=== PATIENT | female | born 1965 | race Caucasian/White ===

== ENCOUNTER 2016-05-12 13:43 | Emergency (ER) | payer OTHER ==
[2016-05-12] MEDS ORDERED: LORazepam INJ* 2 MG/ML 1 ML VIAL IV PUSH ONE (14:43)
[2016-05-12] MEDS ORDERED: Morphine INJ* 4 MG/ML 1 ML CARPUJECT IV ONE (14:43)
[2016-05-12] MEDS ORDERED: NS 0.9% 1000 ML* 3,000 ML IV ONE (14:44)
[2016-05-12 15:00] LABS: Hematocrit 39 % (35-47); Hemoglobin 12.8 g/dl (12.0-16.0); Mean Corpuscular HGB Conc 33 g/dl (31-36); Mean Corpuscular Hemoglobin 28 pg (27-31); Mean Corpuscular Volume 86 fL (80-97); Mean Platelet Volume 9 um3 (7.4-10.4); Red Blood Count 4.55 10^6/ul (4.0-5.4); Red Cell Distribution Width 17 % (10.5-15); White Blood Count 7.3 10^3/ul (3.5-10.8)
[2016-05-12 15:12] LABS: BUN/Creatinine Ratio 11.6 (8-20); C Reactive Protein 3.75 mg/L (< 5.00); Calcium 9.4 mg/dL (8.6-10.3); EGFR African American 115.8 (>60); EGFR Non-African American 90.1 (>60); Globulin 3.1 g/dL (2-4); Potassium 4.1 mmol/L (3.5-5.0); Total Bilirubin 0.3 mg/dL (0.2-1.0); Total Protein 7.1 g/dL (6.4-8.9)
--- NOTE | 2016-05-12 17:32 | RAD ---
INDICATION: LEFT lower extremity pain. LEFT iliac vein stent placed April 13, 2016. COMPARISON: March 14, 2016 TECHNIQUE: Prescott scale, color Doppler, and spectral analysis of the deep veins of the LEFT lower extremity. Vessel compression, phasicity, and augmentation assessed. REPORT: The LEFT common femoral, great saphenous, profunda femoral, and femoral veins are patent. The LEFT popliteal vein is incompletely compressible and demonstrates some flow on color Doppler. The appearance is consistent with partial nonocclusive thrombosis. There is occlusive thrombosis of the bilateral posterior tibial and peroneal veins. Patency of the LEFT external iliac vein documented. IMPRESSION: 1. Nonocclusive thrombosis of the LEFT popliteal vein. 2. Occlusive thrombosis of the bilateral posterior tibial and peroneal veins with worsening compared with the April 21, 2016 exam. 3. Gross resolution of previous nonocclusive thrombosis at the LEFT femoral vein.
--- NOTE | 2016-05-12 17:37 | RAD ---
Indication: LEFT leg cramping with walking. 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 Venous congestion syndrome. Comparison: LEFT lower extremity venous ultrasound of the same date. February 29, 2016 pelvic MRI. Technique: Transabdominal pelvic ultrasound. Report: Unremarkable anteverted 9.2 x 3.2 x 4.6 cm uterus. 5 mm endometrium. 2.0 x 1.8 x 1.2 cm RIGHT ovary with documented vascular flow is unremarkable. 1.8 x 0.8 x 1.5 cm LEFT ovary with documented vascular flow is unremarkable. No free pelvic fluid evident. No visualized prominent parametrial veins evident. Normal venous flow documented in the LEFT external iliac vein on LEFT lower extremity venous ultrasound of the same date. IMPRESSION: Negative pelvic ultrasound.
[2016-05-12] MEDS ORDERED: oxyCODONE/Acetamin 5/325 MG* TAB PO ONE (19:19)
[2016-05-12 19:41] VITALS: BP 129/82
--- NOTE | 2016-05-12 20:49 | ED ---
Marcus Sanchez Erika, scribed for Garret Terry MD on 05/12/16 at 1449 . Abdominal Pain/Female - HPI Summary HPI Summary: Patient is a 50-year-old female presenting to the ED with a CC of constant bilateral lower abdominal pain starting 05/10/2016. She reports that pain has gradually worsened since that time, and became severe this morning. 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 Pain was not alleviated by Tylenol. Pain does not radiate to her back. She also reports vaginal bleeding as spotting starting 05/10, and states she is menopausal. She also reports nausea and diarrhea. She denies SOB, chest pain, and vomiting. Pt also states upper leg pain which she relates to her recent DVT. Pt takes Lovenox, plavix, and aspirin. She denies Hx hysterectomy. - History of Current Complaint Chief Complaint: EDAbdPain Stated Complaint: ABD PAIN Time Seen by Provider: 05/12/16 14:26 Hx Obtained From: Patient ?: No Onset/Duration: Gradual Onset, Lasting Days, Worse Since - this morning Timing: Constant Severity Initially: Mild Severity Currently: Moderate Pain Intensity: 10 Pain Scale Used: 0-10 Numeric Location: Discrete At: RLQ, Discrete At: LLQ Radiates: No Character: Cramping - "like constant contraction" Aggravating Factor(s): Movement Alleviating Factor(s): Nothing Associated Signs and Symptoms: Positive: Vaginal Bleeding, Nausea, Diarrhea. Negative: Chest Pain, Vomiting Allergies/Adverse Reactions: Allergies Allergy/AdvReac Type Severity Reaction Status Date / Time Cyclobenzaprine Allergy Severe Difficulty Verified 04/03/16 09:53 [From Flexeril] Swallowing NSAIDs Allergy Intermediate Itching Verified 04/03/16 09:53 Ketorolac Tromethamine Allergy Mild Difficulty Verified 04/03/16 09:53 [From Toradol] Swallowing Penicillins [PCN] Allergy Mild Rash Verified 04/03/16 09:53 Clonazepam [From Klonopin] Allergy Rash Verified 04/03/16 09:53 Topiramate [From Topamax] Allergy Headache Verified 04/03/16 09:53 Erythromycin AdvReac See Comment Verified 04/03/16 09:53 [place] Allergy Severe Swelling Uncoded 04/03/16 09:53 Of Face,Lips,& Throat tums Allergy Intermediate Dizziness Uncoded 04/03/16 09:53 lidoderm Allergy Mild Rash Uncoded 04/03/16 09:53 PMH/Surg Hx/FS Hx/Imm Hx Endocrine/Hematology History: Reports: Hx Anticoagulant Therapy Denies: Hx Blood Disorders, Hx Blood Transfusions, Hx Bone Marrow Disease, Hx Diabetes, Hx Systemic Lupus Erythematosus, Hx Sickle Cell Disease, Hx Thyroid Disease, Hx Anemia, Hx Unexplained Bleeding Cardiovascular History: Reports: Hx Deep Vein Thrombosis - 1993 left calf Denies: Hx Aneurysm, Hx Angina, Hx Angioplasty, Hx Auto Implanted Cardiovert Defib, Hx Cardiac Arrest, Hx Cardiomegaly, Hx Congenital Heart Disease, Hx Congestive Heart Failure, Hx Coronary Artery Disease, Hx Embolism, Hx Hypercholesterolemia, Hx Hypotension, Hx Hypertension, Hx Pacemaker/ICD, Hx Peripheral Vascular Disease, Hx Rheumatic Fever, Hx Syncope, Hx Valvular Heart Disease, Other Cardiovascular Problems/Disorders Respiratory History: Denies: Hx Asthma, Hx Chronic Bronchitis, Hx Chronic Obstructive Pulmonary Disease (COPD), Hx Cystic Fibrosis, Hx Lung Cancer, Hx Pleural Effusion, Hx Pneumonia, Hx Pulmonary Edema, Hx Pulmonary Embolism, Hx Seasonal Allergies, Hx Sleep Apnea, Other Respiratory Problems/Disorders GI History: Reports: Hx Gall Bladder Disease - taken out 2012, Hx Gastrointestinal Bleed - lesions 2015 Denies: Hx Cirrhosis, Hx Crohn's Disease, Hx Diverticulosis, Hx Gastroesophageal Reflux Disease, Hx Hiatal Hernia, Hx Irritable Bowel, Hx Jaundice, Hx Obstructive Bowel, Hx Ileostomy, Hx Pyloric Stenosis, Hx Ulcer, Other GI Disorders History: Denies: Hx Acute Renal Failure, Hx Benign Prostatic Hyperplasia, Hx Chronic Renal Failure, Hx Dialysis, Hx Kidney Infection, Hx Kidney Stones, Hx Renal Disease, Other Problems/Disorders Musculoskeletal History: Reports: Hx Arthritis, Hx Back Problems - chronic back pain, T4-T5 fusion, Hx Fibromyalgia Denies: Hx Bursitis, Hx Congenital Bone Abnormalities, Hx Gout, Hx Orthopedic Injury, Hx Osteoporosis, Hx Scoliosis, Hx Tendonitis Sensory History: Reports: Hx Contacts or Glasses Denies: Hx Cataracts, Hx Eye Injury, Hx Eye Prosthesis, Hx Glaucoma, Hx Legally Blind, Hx Macular Degeneration, Hx Vision Problem, Hx Deafness, Hx Hearing Aid, Hx Hearing Problem, Other Sensory Impairments Opthamlomology History: Reports: Hx Contacts or Glasses Denies: Hx Cataracts, Hx Eye Injury, Hx Eye Prosthesis, Hx Glaucoma, Hx Legally Blind, Hx Macular Degeneration, Hx Vision Problem, Other Sensory Impairments Neurological History: Reports: Hx Dementia, Hx Headaches, Hx Migraine, Hx Seizures, Other Neuro Impairments/Disorders - prev back surg, bells palsy chronic back pain - L4-5 spinal fusion 2009 Denies: Hx Developmental Delay, Hx Nerve Disease, Hx Spinal Cord Injury, Hx Transient Ischemic Attacks (TIA) Psychiatric History: Reports: Hx Anxiety, Hx Depression Denies: Hx Attention Deficit Hyperactivity Disorder, Hx Eating Disorder, Hx Panic Disorder, Hx Post Traumatic Stress Disorder, Hx Inpatient Treatment, Hx Community Mental Health Tx, Hx Schizophrenia, Hx Bipolar Disorder, Hx Suicide Attempt, Hx of Violent Episodes Against Others, Hx Substance Abuse - Surgical History Surgery Procedure, Year, and Place: D&C-1987 [facility] [place] 1997 [facility] [place]. lumbar FUSION - 2009 [place]. TUBAL LIGATION. Gall bladder 2012 Hx Anesthesia Reactions: No - Immunization History Date of Tetanus Vaccine: 2012 Date of Influenza Vaccine: None Infectious Disease History: No Infectious Disease History: Denies: Hx Clostridium Difficile, Hx Hepatitis, Hx Human Immunodeficiency Virus (HIV), Hx of Known/Suspected MRSA, Hx Shingles, Hx Tuberculosis, Hx Known/ Suspected VRE, Hx Known/Suspected VRSA, History Other Infectious Disease, Traveled Outside the [place] in Last 30 Days - Family History Known Family History: Positive: Cardiac Disease, Hypertension, Diabetes, Seizure Disorder - paternal, maternal, Other Family History: Mother alive in 60s with Hx of gallbladder CA, DVT. Father alive in 60s with Hx of CAD - Social History Alcohol Use: None Hx Substance Use: No Substance Use Type: Reports: None Hx Tobacco Use: Yes Smoking Status (MU): Light Every Day Tobacco Smoker Type: Cigarettes Amount Used/How Often: 4 Cigarettes/DAY Review of Systems Negative: Chest Pain Negative: Shortness Of Breath Positive: Abdominal Pain, Diarrhea, Nausea. Negative: Vomiting Genitourinary: Other - vaginal bleeding - spotting Musculoskeletal: Other - upper leg pain All Other Systems Reviewed And Are Negative: Yes Physical Exam - Summary Physical Exam Summary: The patient is well-nourished in acute distress and acute pain. The skin is warm and diaphoretic and skin color reflects adequate perfusion. HEENT: The head is normocephalic and atraumatic. The pupils are equal and reactive. The conjunctivae are clear and without drainage. Nares are patent and without drainage. Mouth reveals moist mucous membranes and the throat is without erythema and exudate. The external ears are intact. Neck is supple with full range of motion and non-tender. There are no carotid bruits. There is no neck vein distension. Respiratory: Chest is non-tender. Lungs are clear to auscultation and breath sounds are symmetrical and equal. Cardiovascular: Heart is regular rate and rhythm. There is no murmur or rub auscultated. There is no peripheral edema and pulses are symmetrical and equal. Abdomen: The abdomen is soft is tender in her bilateral lower abdomen. There are normal bowel sounds heard in all four quadrants and there is no organomegaly palpated. Musculoskeletal: There is no back pain noted. Extremities are non-tender with full range of motion. There is good capillary refill. There is no peripheral edema or calf tenderness elicited. Neurological: Patient is alert and oriented to person, place and time. The patient has symmetrical motor strength in all four extremities. Cranial nerves are grossly intact. Deep tendon reflexes are symmetrical and equal in all four extremities. Psychiatric: The patient exhibits anxiety. Triage Information Reviewed: Yes Vital Signs On Initial Exam: Initial Vitals Temp Pulse Resp BP Pulse Ox 98.9 F 120 20 137/98 98 05/12/16 13:44 05/12/16 13:44 05/12/16 13:44 05/12/16 13:44 05/12/16 13:44 Vital Signs Reviewed: Yes Diagnostics - Vital Signs Vital Signs Temp Pulse Resp BP Pulse Ox 05/12/16 13:44 98.9 F 120 20 137/98 98 - Laboratory Lab Results: Lab Results 05/12/16 05/12/16 05/12/16 Range/Units 14:00 14:00 14:00 WBC 7.3 (3.5-10.8) 10^3/ul RBC 4.55 (4.0-5.4) 10^6/ul Hgb 12.8 (12.0-16.0) g/dl Hct 39 (35-47) % MCV 86 (80-97) fL MCH 28 (27-31) pg MCHC 33 (31-36) g/dl RDW 17 H (10.5-15) % Plt Count 328 (150-450) 10^3/ul MPV 9 (7.4-10.4) um3 Neut % (Auto) 70.4 (38-83) % Lymph % (Auto) 21.3 L (25-47) % Sharkey % (Auto) 6.4 (1-9) % Eos % (Auto) 1.3 (0-6) % Baso % (Auto) 0.6 (0-2) % Absolute Neuts (auto) 5.1 (1.5-7.7) 10^3/ul Absolute Lymphs (auto) 1.6 (1.0-4.8) 10^3/ul Absolute Monos (auto) 0.5 (0-0.8) 10^3/ul Absolute Eos (auto) 0.1 (0-0.6) 10^3/ul Absolute Basos (auto) 0 (0-0.2) 10^3/ul Absolute Nucleated RBC 0 10^3/ul Nucleated RBC % 0.1 INR (Anticoag Therapy) (0.89-1.11) Sodium 135 (133-145) mmol/L Potassium 4.1 (3.5-5.0) mmol/L Chloride 104 (101-111) mmol/L Carbon Dioxide 22 (22-32) mmol/L Anion Gap 9 (2-11) mmol/L BUN 8 (6-24) mg/dL Creatinine 0.69 (0.51-0.95) mg/dL Est GFR ( Amer) 115.8 (>60) Est GFR (Non-Af Amer) 90.1 (>60) BUN/Creatinine Ratio 11.6 (8-20) Glucose 83 (70-100) mg/dL Lactic Acid 1.4 (0.5-2.0) mmol/L Calcium 9.4 (8.6-10.3) mg/dL Total Bilirubin 0.30 (0.2-1.0) mg/dL AST 16 (13-39) U/L ALT 14 (7-52) U/L Alkaline Phosphatase 87 (34-104) U/L C-Reactive Protein 3.75 (< 5.00) mg/L Total Protein 7.1 (6.4-8.9) g/dL Albumin 4.0 (3.2-5.2) g/dL Globulin 3.1 (2-4) g/dL Albumin/Globulin Ratio 1.3 (1-3) Lipase 52 (11.0-82.0) U/L 05/12/16 Range/Units 14:00 WBC (3.5-10.8) 10^3/ul RBC (4.0-5.4) 10^6/ul Hgb (12.0-16.0) g/dl Hct (35-47) % MCV (80-97) fL MCH (27-31) pg MCHC (31-36) g/dl RDW (10.5-15) % Plt Count (150-450) 10^3/ul MPV (7.4-10.4) um3 Neut % (Auto) (38-83) % Lymph % (Auto) (25-47) % Sharkey % (Auto) (1-9) % Eos % (Auto) (0-6) % Baso % (Auto) (0-2) % Absolute Neuts (auto) (1.5-7.7) 10^3/ul Absolute Lymphs (auto) (1.0-4.8) 10^3/ul Absolute Monos (auto) (0-0.8) 10^3/ul Absolute Eos (auto) (0-0.6) 10^3/ul Absolute Basos (auto) (0-0.2) 10^3/ul Absolute Nucleated RBC 10^3/ul Nucleated RBC % INR (Anticoag Therapy) 1.10 (0.89-1.11) Sodium (133-145) mmol/L Potassium (3.5-5.0) mmol/L Chloride (101-111) mmol/L Carbon Dioxide (22-32) mmol/L Anion Gap (2-11) mmol/L BUN (6-24) mg/dL Creatinine (0.51-0.95) mg/dL Est GFR ( Amer) (>60) Est GFR (Non-Af Amer) (>60) BUN/Creatinine Ratio (8-20) Glucose (70-100) mg/dL Lactic Acid (0.5-2.0) mmol/L Calcium (8.6-10.3) mg/dL Total Bilirubin (0.2-1.0) mg/dL AST (13-39) U/L ALT (7-52) U/L Alkaline Phosphatase (34-104) U/L C-Reactive Protein (< 5.00) mg/L Total Protein (6.4-8.9) g/dL Albumin (3.2-5.2) g/dL Globulin (2-4) g/dL Albumin/Globulin Ratio (1-3) Lipase (11.0-82.0) U/L Result Diagrams: 05/12/16 14:00 05/12/16 14:00 Lab Statement: Any lab studies that have been ordered have been reviewed, and results considered in the medical decision making process. - Ultrasound No standard instances Ultrasound Interpretation Completed By: Radiologist - Venous Doppler Left - IMPRESSION: 1. Nonocclusive thrombosis of the LEFT popliteal vein. 2. Occlusive thrombosis of the bilateral posterior tibial and peroneal veins with worsening compared with the April 21, 2016 exam. 3. Gross resolution of previous nonocclusive thrombosis at the LEFT femoral vein. - Additional Comments Diagnostic Additional Comments: Pelvic US Read by Radiologist - IMPRESSION: Negative pelvic ultrasound. Re-Evaluation - Re-Evaluation First Eval Re-Evaluation Time: 19:13 Change: Improved Comment: Discussed lab and imaging results. Pain is now rated an 8/10 and pt appears more comfortable than before. She reports she has no pain medication at home Abdominal Pain Fem Course/Dx - Course Course Of Treatment: Patient presents with a longstanding history of chronic pain, she was recently diagnosed with DVT of the lower extremity and also of the iliac veins. She is on anti-coagulants and had a stent placed in her iliac vein. Today, she presents with right-sided abdominal pain and some vaginal bleeding. US Pelvis was performed which revealed no abnormalities. She had a DVT still present in the LLE. She was given pain medication. I-STOP was reviewed which revealed recent dose of tramadol and oxycodone. She was re- assessed, the pain was decreased. She states she ran out of pain medication. - Diagnoses Differential Diagnosis: Positive: Constipation, Ovarian Cyst, Urinary Tract Infection, Other - pelvic pain, pelvic congestion, chronic pain, dvt Provider Diagnoses: Pelvic pain, Dysfunctional uterine bleeding, Deep vein thrombosis (DVT) of left lower extremity Discharge - Discharge Plan Condition: Stable Disposition: HOME Prescriptions: traMADol TAB* [Ultram*] 50 mg PO Q6HR PRN #20 tab MDD 4 PRN Reason: pain Patient Education Materials: Pelvic Pain in Women (ED), Dysfunctional Uterine Bleeding (ED) Referrals: Shanda Anglin MD [Primary Care Provider] - Shahzad Guillen MD [Medical Doctor] - Jolanta Alejo MD [Medical Doctor] - The documentation as recorded by the Marcus blanco Erika accurately reflects the service I personally performed and the decisions made by me, Garret Terry MD.
== END 2016-05-12 19:41 | disposition home or self-care (01) ==
LOC: ED 13:43
DX: R10.2 Pelvic and perineal pain (principal); N93.8 Other specified abnormal uterine and vaginal bleeding; I82.4Z2 Acute embolism and thrombosis of unspecified deep veins of left distal lower extremity; G89.29 Other chronic pain; Z79.82 Long term (current) use of aspirin; Z79.02 Long term (current) use of antithrombotics/antiplatelets; F17.210 Nicotine dependence, cigarettes, uncomplicated; Z88.0 Allergy status to penicillin
CPT/HCPCS: 36415; 76856; 80053; 83605; 83690; 85025; 85610; 86140; 96360; 96374; 96375; 99282; A9270-GY; J2060; J2270

== ENCOUNTER 2016-05-14 13:24 | Inpatient (IN) | payer OTHER ==
[2016-05-14 14:00] LABS: Hematocrit 44 % (35-47); Hemoglobin 14.3 g/dl (12.0-16.0); Mean Corpuscular HGB Conc 33 g/dl (31-36); Mean Corpuscular Hemoglobin 28 pg (27-31); Mean Corpuscular Volume 86 fL (80-97); Mean Platelet Volume 8 um3 (7.4-10.4); Red Blood Count 5.08 10^6/ul (4.0-5.4); Red Cell Distribution Width 17 % (10.5-15); White Blood Count 4.5 10^3/ul (3.5-10.8)
[2016-05-14] MEDS ORDERED: NS 0.9% 1000 ML* 1,000 ML IV ONE (14:15)
[2016-05-14 14:16] LABS: Albumin 4.5 g/dL (3.2-5.2); BUN/Creatinine Ratio 7.8 (8-20); Calcium 9.8 mg/dL (8.6-10.3); EGFR African American 126.3 (>60); EGFR Non-African American 98.2 (>60); Globulin 3.6 g/dL (2-4); Potassium 3.8 mmol/L (3.5-5.0); Total Bilirubin 0.3 mg/dL (0.2-1.0); Total Protein 8.1 g/dL (6.4-8.9)
--- NOTE | 2016-05-14 14:28 | RAD ---
Indication: Confusion. CT of the brain was performed without IV contrast. Comparison is made with previous exam dated 11/12/2015. Ventricular structures are midline. No midline shift is noted. The extra-axial spaces are unremarkable. There is no evidence of intracranial mass or hemorrhage. No other high or low density lesions are identified. The bony calvaria including mastoid air cells and paranasal sinuses are otherwise unremarkable. IMPRESSION: No intracranial mass or hemorrhage is noted.
[2016-05-14] MEDS ORDERED: Iohexol 350* (CONTRAST) 500 ML MDV IV ONE (14:31)
[2016-05-14] MEDS ORDERED: Ondansetron INJ* 2 MG/ML VIAL IV ONE (14:39)
[2016-05-14] MEDS ORDERED: Morphine INJ* 4 MG/ML 1 ML CARPUJECT IV ONE ×2 (14:39→16:20)
--- NOTE | 2016-05-14 16:37 | RAD ---
Indication: Syncope, elevated troponin, evaluate for aorta and pulmonary embolus. CTA of the chest, abdomen and pelvis was performed after oral and IV contrast administration. 100 cc of Omnipaque 350 was given hospital protocol. Coronal and sagittal reconstructed images were obtained. The origins of the great vessels are unremarkable. There is no evidence of aortic dissection. Ascending aorta measures approximately 3.4 cm. The pulmonary arterial tree is well opacified. There are no filling defects present to suggest pulmonary embolus. There is no evidence of mediastinal or hilar adenopathy noted. The heart demonstrates no pericardial effusion. There is an axial-type hiatal hernia of moderate size noted. The lung cobb demonstrate no evidence of alveolar consolidation. No pleural fluid is identified. No focal nodules are noted. CTA of the abdomen and pelvis demonstrates the abdominal aorta to be normal caliber without evidence of aneurysmal dilatation. Origins of the celiac axis, superior mesenteric artery, left and right renal arteries are unremarkable. Calcification is noted in the distal abdominal aorta just proximal to the origin of the inferior mesenteric artery. There is a left common iliac vein stent noted. The liver is normal in size. No focal lesions are noted. Prominent common duct is noted which appears to taper into the duodenum. The common duct measures up to 9.8 mm. This is likely due to postcholecystectomy state of the patient. Spleen is heterogeneous. No adrenal lesions are noted. The kidneys demonstrate symmetric nephrograms. No retroperitoneal adenopathy is noted. No dilated loops of bowel are noted. The colon is filled with stool. Urinary bladder is unremarkable. No hernias are noted. The ovaries are unremarkable. There is soft tissue mass in the subcutaneous fat superficial to the left rectus muscle measuring up to 3.1 cm. This is of uncertain etiology. There is some skin thickening in this level and clinical correlation is suggested. There is some induration of the fat at this level. No hernias are noted. There are postoperative changes of the lower lumbar spine noted. IMPRESSION: NO PULMONARY EMBOLUS IS NOTED. NO ANEURYSMAL DILATATION OF THE ASCENDING AORTA, DESCENDING THORACIC AORTA AND ABDOMINAL AORTA. THERE IS A LEFT COMMON ILIAC STENT NOTED. THERE IS A HIATAL HERNIA NOTED. IN THE SUBCUTANEOUS FAT. AGAIN NOTED IN THE SUBCUTANEOUS FAT IN THE LEFT LOWER ABDOMEN JUST TO THE LEFT OF THE UMBILICUS IS A 3.1 CM SOFT TISSUE MASS WITH SKIN INDURATION. THIS IS OF UNCERTAIN ETIOLOGY AND CLINICAL CORRELATION IS SUGGESTED TO EXCLUDE INFECTION.
--- NOTE | 2016-05-14 16:38 | ED ---
Jennifer Sanchez Matthew, scribed for Chris Rosado MD on 05/14/16 at 1440 . Abdominal Pain/Female - HPI Summary HPI Summary: A 50 y/o female presents to the ED with intermittent diffuse lower abdominal since 2 days ago. The pain is rated 9/10 in severity, described as sharp and stabbing, and radiates down the legs. She states that she has been passing out as a result of her pain. Associated symptoms include vaginal bleeding - since 4 days ago, lightheadedness, loose stools, coughing, and back pain. The patient denies vomiting, nausea, chest pain, SOB, dizziness, neck pain, arm pain, blood w/ stool, black stools and trauma. She has to change her pads 4x per hours, because of the vaginal bleeding. Denies allergies to IV dyes. The patient was unresponsive upon arrival. She is currently on Plavix. No Hx of CAD or CA. The patient does smoke. - History of Current Complaint Chief Complaint: EDSyncope Stated Complaint: SYNCOPE Time Seen by Provider: 05/14/16 13:34 Hx Obtained From: Patient ?: No Onset/Duration: Gradual Onset, Lasting Days, Still Present Timing: Constant Severity Initially: Moderate Severity Currently: Moderate Pain Intensity: 9 Pain Scale Used: 0-10 Numeric Location: Diffuse - lower abdominal pain Radiates: Yes Radiates to: Other - legs Character: Sharp Associated Signs and Symptoms: Positive: Back Pain, Vaginal Bleeding, Other: - lightheadedness; loose stools. Negative: Chest Pain, Dizzy, Blood in Stool Allergies/Adverse Reactions: Allergies Allergy/AdvReac Type Severity Reaction Status Date / Time Cyclobenzaprine Allergy Severe Difficulty Verified 04/03/16 09:53 [From Flexeril] Swallowing NSAIDs Allergy Intermediate Itching Verified 04/03/16 09:53 Ketorolac Tromethamine Allergy Mild Difficulty Verified 04/03/16 09:53 [From Toradol] Swallowing Penicillins [PCN] Allergy Mild Rash Verified 04/03/16 09:53 Clonazepam [From Klonopin] Allergy Rash Verified 04/03/16 09:53 Topiramate [From Topamax] Allergy Headache Verified 04/03/16 09:53 Tramadol Allergy Rash Verified 05/13/16 14:38 Erythromycin AdvReac See Comment Verified 04/03/16 09:53 port gamble Allergy Severe Swelling Uncoded 04/03/16 09:53 Of Face,Lips,& Throat tums Allergy Intermediate Dizziness Uncoded 04/03/16 09:53 lidoderm Allergy Mild Rash Uncoded 04/03/16 09:53 Home Medications: Home Medications Aspirin Low Dose CHEW TAB* [Aspirin Low Dose TAB*] 81 mg PO DAILY 05/14/16 [ History Confirmed 05/14/16] QUEtiapine TAB* [SEROquel TAB*] 50 mg PO DAILY 05/14/16 [History Confirmed 05/14] PMH/Surg Hx/FS Hx/Imm Hx Endocrine/Hematology History: Reports: Hx Anticoagulant Therapy Denies: Hx Blood Disorders, Hx Blood Transfusions, Hx Bone Marrow Disease, Hx Diabetes, Hx Systemic Lupus Erythematosus, Hx Sickle Cell Disease, Hx Thyroid Disease, Hx Anemia, Hx Unexplained Bleeding Cardiovascular History: Reports: Hx Deep Vein Thrombosis - 1993 left calf Denies: Hx Aneurysm, Hx Angina, Hx Angioplasty, Hx Auto Implanted Cardiovert Defib, Hx Cardiac Arrest, Hx Cardiomegaly, Hx Congenital Heart Disease, Hx Congestive Heart Failure, Hx Coronary Artery Disease, Hx Embolism, Hx Hypercholesterolemia, Hx Hypotension, Hx Hypertension, Hx Pacemaker/ICD, Hx Peripheral Vascular Disease, Hx Rheumatic Fever, Hx Syncope, Hx Valvular Heart Disease, Other Cardiovascular Problems/Disorders Respiratory History: Denies: Hx Asthma, Hx Chronic Bronchitis, Hx Chronic Obstructive Pulmonary Disease (COPD), Hx Cystic Fibrosis, Hx Lung Cancer, Hx Pleural Effusion, Hx Pneumonia, Hx Pulmonary Edema, Hx Pulmonary Embolism, Hx Seasonal Allergies, Hx Sleep Apnea, Other Respiratory Problems/Disorders GI History: Reports: Hx Gall Bladder Disease - taken out 2012, Hx Gastrointestinal Bleed - lesions 2015 Denies: Hx Cirrhosis, Hx Crohn's Disease, Hx Diverticulosis, Hx Gastroesophageal Reflux Disease, Hx Hiatal Hernia, Hx Irritable Bowel, Hx Jaundice, Hx Obstructive Bowel, Hx Ileostomy, Hx Pyloric Stenosis, Hx Ulcer, Other GI Disorders History: Denies: Hx Acute Renal Failure, Hx Benign Prostatic Hyperplasia, Hx Chronic Renal Failure, Hx Dialysis, Hx Kidney Infection, Hx Kidney Stones, Hx Renal Disease, Other Problems/Disorders Musculoskeletal History: Reports: Hx Arthritis, Hx Back Problems - chronic back pain, T4-T5 fusion, Hx Fibromyalgia Denies: Hx Bursitis, Hx Congenital Bone Abnormalities, Hx Gout, Hx Orthopedic Injury, Hx Osteoporosis, Hx Scoliosis, Hx Tendonitis Sensory History: Reports: Hx Contacts or Glasses Denies: Hx Cataracts, Hx Eye Injury, Hx Eye Prosthesis, Hx Glaucoma, Hx Legally Blind, Hx Macular Degeneration, Hx Vision Problem, Hx Deafness, Hx Hearing Aid, Hx Hearing Problem, Other Sensory Impairments Opthamlomology History: Reports: Hx Contacts or Glasses Denies: Hx Cataracts, Hx Eye Injury, Hx Eye Prosthesis, Hx Glaucoma, Hx Legally Blind, Hx Macular Degeneration, Hx Vision Problem, Other Sensory Impairments Neurological History: Reports: Hx Dementia, Hx Headaches, Hx Migraine, Hx Seizures, Other Neuro Impairments/Disorders - prev back surg, bells palsy chronic back pain - L4-5 spinal fusion 2009 Denies: Hx Developmental Delay, Hx Nerve Disease, Hx Spinal Cord Injury, Hx Transient Ischemic Attacks (TIA) Psychiatric History: Reports: Hx Anxiety, Hx Depression Denies: Hx Attention Deficit Hyperactivity Disorder, Hx Eating Disorder, Hx Panic Disorder, Hx Post Traumatic Stress Disorder, Hx Inpatient Treatment, Hx Community Mental Health Tx, Hx Schizophrenia, Hx Bipolar Disorder, Hx Suicide Attempt, Hx of Violent Episodes Against Others, Hx Substance Abuse - Surgical History Surgery Procedure, Year, and Place: D&C-1987 [facility] [place]. - 1997 [facility] [place]. lumbar FUSION - 2009 [place]. TUBAL LIGATION. Gall bladder 2012 Hx Anesthesia Reactions: No - Immunization History Date of Tetanus Vaccine: 2012 Date of Influenza Vaccine: None Infectious Disease History: No Infectious Disease History: Denies: Hx Clostridium Difficile, Hx Hepatitis, Hx Human Immunodeficiency Virus (HIV), Hx of Known/Suspected MRSA, Hx Shingles, Hx Tuberculosis, Hx Known/ Suspected VRE, Hx Known/Suspected VRSA, History Other Infectious Disease, Traveled Outside the in Last 30 Days - Family History Known Family History: Positive: Cardiac Disease, Hypertension, Diabetes, Seizure Disorder - paternal, maternal, Other Family History: Mother alive in 60s with Hx of gallbladder CA, DVT. Father alive in 60s with Hx of CAD - Social History Alcohol Use: None Hx Substance Use: No Substance Use Type: Reports: None Hx Tobacco Use: Yes Smoking Status (MU): Light Every Day Tobacco Smoker Type: Cigarettes Amount Used/How Often: 4 Cigarettes/DAY Review of Systems Constitutional: Negative Negative: Fever, Chills Eyes: Negative Negative: Erythema ENT: Negative Negative: Sore Throat, Ear Ache Cardiovascular: Negative Negative: Chest Pain Positive: Cough. Negative: Shortness Of Breath Gastrointestinal: Other - Loose stools Positive: Abdominal Pain - Diffuse lower abdominal pain. Negative: Vomiting, Diarrhea, Nausea Genitourinary: Other - Vaginal bleeding Positive: Myalgia - back pain Skin: Negative Negative: Rash Neurological: Other - lightheadedness Psychological: Normal All Other Systems Reviewed And Are Negative: Yes Physical Exam - Summary Physical Exam Summary: Upon exam, the patient was crying in pain. Pelvic Exam reveals Scant amount of blood from the cervix Triage Information Reviewed: Yes Vital Signs On Initial Exam: Initial Vitals Temp Pulse Resp BP Pulse Ox 96.8 F 116 18 93/77 98 05/14/16 13:31 05/14/16 13:31 05/14/16 13:31 05/14/16 13:31 05/14/16 13:31 Vital Signs Reviewed: Yes Appearance: Positive: Well-Nourished Skin: Positive: Warm, Dry Head/Face: Positive: Other - Normocephalic; Atraumatic Eyes: Positive: Conjunctiva Clear Dental: Negative: Cervical Lymphadenopathy Neck: Positive: No Lymphadenopathy, Other: - Musculoskeletal ROM normal neck; No JVD Respiratory/Lung Sounds: Positive: Breath Sounds Present, Other - Normal Effort ; No respiratory distress. Negative: Rales, Stridor, Tracheal Deviation, Wheezes Cardiovascular: Positive: Tachycardia, Other - Heart sounds normal; Intact distal pulses; The pedal pulses are 2+ and symmetric. Radial pulses are 2+ and symmetric. Negative: Murmur Abdomen Description: Positive: Soft, Other: - Rebound. Negative: Distended, Guarding Musculoskeletal: Negative: Edema Left, Edema Right Neurological: Positive: Alert, Oriented to Person Place, Time Psychiatric: Positive: Affect/Mood Appropriate - [place] Coma Scale Coma Scale Total: 15 Diagnostics - Vital Signs Vital Signs Temp Pulse Resp BP Pulse Ox 05/14/16 13:31 96.8 F 116 18 93/77 98 - Laboratory Lab Results: Lab Results 05/14/16 05/14/16 05/14/16 Range/Units 13:45 13:45 13:45 WBC 4.5 (3.5-10.8) 10^3/ul RBC 5.08 (4.0-5.4) 10^6/ul Hgb 14.3 (12.0-16.0) g/dl Hct 44 (35-47) % MCV 86 (80-97) fL MCH 28 (27-31) pg MCHC 33 (31-36) g/dl RDW 17 H (10.5-15) % Plt Count 338 (150-450) 10^3/ul MPV 8 (7.4-10.4) um3 Neut % (Auto) 74.4 (38-83) % Lymph % (Auto) 17.4 L (25-47) % [place] % (Auto) 5.5 (1-9) % Eos % (Auto) 1.5 (0-6) % Baso % (Auto) 1.2 (0-2) % Absolute Neuts (auto) 3.3 (1.5-7.7) 10^3/ul Absolute Lymphs (auto) 0.8 L (1.0-4.8) 10^3/ul Absolute Monos (auto) 0.2 (0-0.8) 10^3/ul Absolute Eos (auto) 0.1 (0-0.6) 10^3/ul Absolute Basos (auto) 0.1 (0-0.2) 10^3/ul Absolute Nucleated RBC 0 10^3/ul Nucleated RBC % 0 Sodium 136 (133-145) mmol/L Potassium 3.8 (3.5-5.0) mmol/L Chloride 104 (101-111) mmol/L Carbon Dioxide 23 (22-32) mmol/L Anion Gap 9 (2-11) mmol/L BUN 5 L (6-24) mg/dL Creatinine 0.64 (0.51-0.95) mg/dL Est GFR ( Amer) 126.3 (>60) Est GFR (Non-Af Amer) 98.2 (>60) BUN/Creatinine Ratio 7.8 L (8-20) Glucose 88 (70-100) mg/dL Lactic Acid 1.4 (0.5-2.0) mmol/L Calcium 9.8 (8.6-10.3) mg/dL Total Bilirubin 0.30 (0.2-1.0) mg/dL AST 30 (13-39) U/L ALT 17 (7-52) U/L Alkaline Phosphatase 94 (34-104) U/L Troponin I 2.00 H* (<0.04) ng/mL Total Protein 8.1 (6.4-8.9) g/dL Albumin 4.5 (3.2-5.2) g/dL Globulin 3.6 (2-4) g/dL Albumin/Globulin Ratio 1.3 (1-3) Blood Type Antibody Screen 05/14/16 Range/Units 13:45 WBC (3.5-10.8) 10^3/ul RBC (4.0-5.4) 10^6/ul Hgb (12.0-16.0) g/dl Hct (35-47) % MCV (80-97) fL MCH (27-31) pg MCHC (31-36) g/dl RDW (10.5-15) % Plt Count (150-450) 10^3/ul MPV (7.4-10.4) um3 Neut % (Auto) (38-83) % Lymph % (Auto) (25-47) % [place] % (Auto) (1-9) % Eos % (Auto) (0-6) % Baso % (Auto) (0-2) % Absolute Neuts (auto) (1.5-7.7) 10^3/ul Absolute Lymphs (auto) (1.0-4.8) 10^3/ul Absolute Monos (auto) (0-0.8) 10^3/ul Absolute Eos (auto) (0-0.6) 10^3/ul Absolute Basos (auto) (0-0.2) 10^3/ul Absolute Nucleated RBC 10^3/ul Nucleated RBC % Sodium (133-145) mmol/L Potassium (3.5-5.0) mmol/L Chloride (101-111) mmol/L Carbon Dioxide (22-32) mmol/L Anion Gap (2-11) mmol/L BUN (6-24) mg/dL Creatinine (0.51-0.95) mg/dL Est GFR ( Amer) (>60) Est GFR (Non-Af Amer) (>60) BUN/Creatinine Ratio (8-20) Glucose (70-100) mg/dL Lactic Acid (0.5-2.0) mmol/L Calcium (8.6-10.3) mg/dL Total Bilirubin (0.2-1.0) mg/dL AST (13-39) U/L ALT (7-52) U/L Alkaline Phosphatase (34-104) U/L Troponin I (<0.04) ng/mL Total Protein (6.4-8.9) g/dL Albumin (3.2-5.2) g/dL Globulin (2-4) g/dL Albumin/Globulin Ratio (1-3) Blood Type B Positive Antibody Screen Pending Result Diagrams: 05/14/16 13:45 05/14/16 13:45 Lab Statement: Any lab studies that have been ordered have been reviewed, and results considered in the medical decision making process. - CT Brain CT CT Interpretation: No Acute Changes - IMPRESSION: No intracranial mass or hemorrhage is noted. CT Interpretation Completed By: Radiologist - EKG 14:28 Cardiac Rate: Tachycardia - 115 bpm EKG Rhythm: Sinus Tachycardia EKG Interpretation: No STEMI Abdominal Pain Fem Course/Dx - Course Course Of Treatment: Presenting for three days of progressive vaginal bleeding, pelvic exam shows only scant blood. Syncopal episodes today, pressure soft on arrival. Blood counts normal, no acute abdomen/PE/aortic dissection. Abdominal pain is chronic. Troponin related to hypotension/syncope vs NSTEMI. Dr. Gabriel (cardiology) and Dr. Alanis aware - Diagnoses Provider Diagnoses: Chronic bilateral lower abdominal pain, Vaginal bleeding, Syncope, NSTEMI (non- ST elevated myocardial infarction) - Critical Care Time Critical Care Time: 30-74 min Discharge - Discharge Plan Condition: Fair Disposition: ADMITTED TO [facility] The documentation as recorded by the Jennifer blanco Matthew accurately reflects the service I personally performed and the decisions made by me, Chris Rosado MD.
[2016-05-14 18:46] LABS: Urine Bacteria Absent (Absent); Urine Bilirubin Negative (Negative); Urine Glucose Negative (Negative); Urine Nitrite Negative (Negative)
[2016-05-14 19:03] LABS: Benzodiazepine Urine Screen None Detected (None Detect)
[2016-05-14 20:02] LABS: Troponin I 1.96 ng/mL (<0.04)
[2016-05-14] MEDS: Enoxaparin(*) 80 MG/0.8 ML SYR SUBCUT SCH (20:47)
[2016-05-14] MEDS: Gabapentin CAP(*) 400 MG PO SCH (20:48)
[2016-05-14] MEDS: Metoprolol Tartrate TAB* 25 MG PO SCH (20:49)
[2016-05-14] MEDS: hydrOXYzine HCL TAB* 50 MG PO PRN (20:50)
--- NOTE | 2016-05-14 20:55 | HP ---
HISTORY AND PHYSICAL: DATE OF ADMISSION: 05/14/16 PRIMARY CARE PHYSICIAN: Dr. Anglin. HISTORY OF PRESENT ILLNESS: Ms. Agosto is a 50-year-old female with a past medical history of chronic pain; seizure; left lower extremity stent placed for peripheral vascular disease; anxiety; depression; DVT diagnosed in November 2015, on Lovenox shots; who presents to the hospital with significant lower abdominal pain, reported vaginal bleeding, and syncope. The patient states her symptoms began around 05/10/15. She said she woke up in the morning with crampy lower abdominal pain. She also noticed some spotting in her underwear from her vagina that day. States she took some gabapentin and Tylenol with no improvement. The pain was not severe, but persisted over the next few days until 05/12/16 where the pain worsened and she reported more significant vaginal bleeding. She stated the pain was very severe. She came to the emergency room that day, was evaluated by Dr. Terry. She underwent a pelvic ultrasound that was unremarkable. She also underwent a repeat venous Doppler that showed persistent DVT. She was sent home with tramadol as she reported that she ran out of it. She states over the past few days, the pain has become more severe and she states today when she stood up, blood "gushed out from her vagina." She states she has been having to change her pads very frequently up to 4 pads an hour. However, since her arriving to the hospital, she has had no vaginal bleeding. The patient states she had menopause at the age of 47. She has had some loose bowel movements, although no blood. She has had some nausea and vomiting this morning, which was nonbilious and nonbloody. Apparently, en route to the hospital, she passed out in the car and was not totally responsive when she was here in the hospital. Looking back in patient's previous history and physical, she has had episodes of questionable syncope in the past and episodes of unresponsiveness. The patient denies any chest pain, shortness of breath, or dysuria. PAST MEDICAL HISTORY: DVT in November 2015, chronic back pain, anxiety, depression, peripheral vascular disease with left lower extremity iliac stent placed. PAST SURGICAL HISTORY: D and C, , lumbar fusion, tubal ligation, cholecystectomy. HOME MEDICATIONS: 1. Seroquel 50 mg by mouth daily. 2. Gabapentin 400 mg by mouth every 4 hours. 3. Tramadol 50 mg by mouth every 6 hours as needed for pain. 4. Hydroxyzine 100 mg by mouth 3 times daily as needed for anxiety. 5. Effexor 300 mg by mouth daily. 6. Protonix 40 mg by mouth daily. 7. Lovenox 100 mg subcu daily. 8. Plavix 75 mg by mouth daily. ALLERGIES: Reports allergies to PENICILLIN, TORADOL, NSAIDS, FLEXERIL, TOPAMAX , TRAMADOL, ERYTHROMYCIN, [place], TUMS, and LIDODERM. FAMILY HISTORY: Father with CAD, mother with CVA. SOCIAL HISTORY: The patient smoked a half pack per day for 16 years. Denies any alcohol use. Denies any illicit drug use. REVIEW OF SYSTEMS: The patient reports some chills, no dysuria. Remainder of 12- point review of systems negative except for that on the HPI. PHYSICAL EXAMINATION GENERAL: The patient is a middle-aged female, lying in bed, in no apparent distress. VITAL SIGNS: On admission, temperature 96.8, heart rate of 116, respiratory rate of 18, O2 saturation 98% on room air, blood pressure 93/77, repeat blood pressure shortly thereafter 148/98, tachycardia since resolved. HEENT: Dry mucous membranes. Anicteric sclerae. Pupils equal, round, reactive to light and accommodation. No cervical adenopathy. LUNGS: Clear to auscultation bilaterally. No wheezes, rales, or rhonchi. CARDIOVASCULAR: Regular rate and rhythm. S1 and S2 present. No murmurs, gallops, or rubs. ABDOMEN: Soft, nondistended. Tender to palpation in the lower quadrants. No rebound or guarding. Ecchymoses from Lovenox in the anterior stomach. EXTREMITIES: No clubbing, cyanosis, or edema. NEUROLOGIC: The patient is alert and oriented x3. No focal neurological deficits. LABS AND DIAGNOSTICS: White blood cell count of 4.5, hematocrit 44, platelets of 338. Sodium 136, potassium 3.8, chloride of 104, carbon dioxide of 23, BUN of 5, creatinine of 0.64, glucose of 88, lactic acid of 1.4. AST of 30, ALT of 17, troponin of 2.00. U-tox positive for opiates which the patient received prior to her test. Urinalysis negative for evidence of infection. IMAGING: CT of the brain shows no intracranial mass or hemorrhage. CT of the chest, abdomen, and pelvis shows no pulmonary embolism, no aneurysmal dilatation , left common iliac stent, hiatal hernia, soft tissue mass, and left lower quadrant subcutaneous fat. ASSESSMENT AND PLAN: Abdominal pain, possible syncope and troponin elevation in a 50-year-old female with a past medical history of chronic pain; deep venous thrombosis, on Lovenox; anxiety; depression; peripheral vascular disease , status post left lower extremity stent. 1. Abdominal pain. Etiology is unclear. The patient's labs are largely unremarkable. No clear evidence of infection. LFTs are within normal limits. We will add on a lipase. CT scan is unremarkable as well. I think that the area noted on the CAT scan is from her Lovenox injections. She has had a normal pelvic ultrasound 2 days ago. Has not had any vaginal bleeding since her arriving here, but we will continue to keep an eye on this. Her hematocrit is normal. Will continue home pain medications. 2. Troponin elevation. Unclear etiology of this. I am wondering if this may be a lab error as the patient has had no chest pain, has no cardiac history, has no anemia, hypoxia, and a normal EKG. I supposed this could be demand mediated from some hypotension but this seems quite high. I will add on a CK and a CK-MB. We will also repeat a troponin now. If it is positive, we can consult Cardiology and I will consider restarting the patient's Lovenox as she has had no evidence of bleeding since coming to the hospital. 3. History of deep venous thrombosis. We will await troponin. For now with the patient's reported history of heavy vaginal bleeding, we will hold her Lovenox. 4. Anxiety and depression. Continue home Seroquel, gabapentin, venlafaxine, and Atarax. 5. Chronic pain. Continue home tramadol. 6. Left lower extremity stent, continue Plavix for now. 7. DVT prophylaxis, TEDs. 8. Code status, the patient is a full code. TIME SPENT: Total time spent on this admission 60 minutes with over half the time spent [id number] with the patient counseling and coordinating care. CC: Dr. Anglin * [id number]/[facility] #: [id number] BELKYS
[2016-05-14] MEDS: traMADol TAB* 50 MG PO PRN (22:27)
[2016-05-14 22:47] LABS: Troponin I 2.14 ng/mL (<0.04)
[2016-05-15] MEDS: Gabapentin CAP(*) 400 MG PO SCH ×6 (01:38→21:32)
[2016-05-15 04:57] LABS: Hematocrit 35 % (35-47); Hemoglobin 11.6 g/dl (12.0-16.0); Mean Corpuscular HGB Conc 33 g/dl (31-36); Mean Corpuscular Hemoglobin 29 pg (27-31); Mean Corpuscular Volume 86 fL (80-97); Mean Platelet Volume 8 um3 (7.4-10.4); Red Blood Count 4.08 10^6/ul (4.0-5.4); Red Cell Distribution Width 17 % (10.5-15); White Blood Count 4.2 10^3/ul (3.5-10.8)
[2016-05-15 05:09] LABS: BUN/Creatinine Ratio 12.3 (8-20); Calcium 8.7 mg/dL (8.6-10.3); EGFR African American 144.4 (>60); EGFR Non-African American 112.3 (>60); Potassium 3.3 mmol/L (3.5-5.0)
[2016-05-15 05:14] LABS: Troponin I 2.29 ng/mL (<0.04)
[2016-05-15] MEDS: traMADol TAB* 50 MG PO PRN ×3 (05:19→17:47)
[2016-05-15] MEDS: Clopidogrel TAB* 75 MG PO SCH (09:09)
[2016-05-15] MEDS: Enoxaparin(*) 80 MG/0.8 ML SYR SUBCUT SCH ×2 (09:10→21:32)
[2016-05-15] MEDS: Pantoprazole TAB (NF) 40 MG TAB PO SCH (09:10)
[2016-05-15] MEDS: Venlafaxine EXT RELEASE CAP* 75 MG PO SCH (09:11)
[2016-05-15] MEDS: QUEtiapine TAB* 25 MG PO SCH (09:11)
[2016-05-15] MEDS: Metoprolol Tartrate TAB* 25 MG PO SCH ×2 (09:15→17:46)
--- NOTE | 2016-05-15 12:03 | ECHO ---
Patient: BARTOLO SAENZ [facility] Rec#: [id number] : 1965 Date: 05/15/2016 Age: 50y Height: 162 cm / 63.8 in Weight: 81 kg / 178.5 lbs Sex: F BSA: 1.86 Room#: 452 Admit Date#: 05/14/2016 Type: Inpatient Referring: MECCA WYNN MD Reading: Jose Roberto Flynn DO Cableman: Juan Ramon Boyer RDCS CC: Shanda Anglin MD Transthoracic Echocardiogram Indication: Elevated, Troponin BP: 107/70 HR: 79 Rhythm: NSR Findings History: PVD,SMOKER Technical Comments: The study quality is good. Completed 1015 Left Ventricle: The left ventricular chamber size is normal. There is a prominent septal knuckle. Global left ventricular wall motion and contractility are within normal limits. There is normal left ventricular systolic function. The estimated ejection fraction is 55-60%. There is no consistent Doppler evidence of clinically significant diastolic dysfunction. Left Atrium: The left atrial chamber size is normal. Right Ventricle: The right ventricular chamber size and systolic function are within normal limits. Right Atrium: The right atrial cavity size is normal. Aortic Valve: The aortic valve is trileaflet. The aortic valve leaflets are mildly thickened. There is no evidence of aortic regurgitation. There is no evidence of aortic stenosis. Mitral Valve: The mitral valve leaflets appear normal. There is no evidence of mitral regurgitation. There is no evidence of mitral stenosis. Tricuspid Valve: The tricuspid valve appears normal in structure and function. There is trace tricuspid regurgitation. Unable to estimate the right ventricular systolic pressure. Pulmonic Valve: The pulmonic valve appears normal. There is no evidence of pulmonic regurgitation. There is no pulmonic stenosis. Pericardium: There is no significant pericardial effusion. Aorta: The ascending aorta is not well visualized. There is no dilatation of the aortic arch. There is no dilation of the aortic root. Pulmonary Artery: The main pulmonary artery is not well visualized. Venous: The inferior vena cava appears normal in size. There is a greater than 50% respiratory change in the inferior vena cava dimension. Conclusions The left ventricular chamber size is normal. There is a prominent septal knuckle. There is normal left ventricular systolic function with an estimated LV ejection fraction of 55-60%. Global left ventricular wall motion and contractility are within normal limits. The left atrial chamber size is normal. The right ventricular chamber size and systolic function are within normal limits. The aortic valve leaflets are mildly thickened. Unable to estimate the right ventricular systolic pressure. There is no significant pericardial effusion. Compared to prior study form 05/2007, no significant changes noted Measurements Name Value Normal Range RVIDd (AP) 2D 1.8 cm (0.9 - 2.6) RVDdMajor (2D) 2.3 cm (2.2 - 4.4) RAd ISD 4CH 3.8 cm (3.4 - 4.9) IVSd (2D) 0.9 cm (0.6 - 1) LVPWd (2D) 1.1 cm (0.6 - 1) LVIDd (2D) 5.5 cm (3.6 - 5.4) LVIDs (2D) 4 cm - LV FS (2D) 29 % (25 - 45) Aortic Annulus 1.9 cm (1.4 - 2.6) Ao root diameter (2D) 3 cm (2.1 - 3.5) Aortic arch 2.8 cm (1.8 - 3.4) LA dimension (AP) 2D 4 cm (2.3 - 3.8) LAd ISD 4CH 5.2 cm (2.9 - 5.3) LA ISD 4CH W 2.8 cm (2.5 - 4.5) Name Value Normal Range LA ESV SP 4CH (A/L) 31 ml - LA ESV SP 2CH (A/L) 79 ml - LA ESV BP (A/L) 52 ml - LA ESV BP (A/L) index 27.68 ml/m2 - LA ESV SP 4CH (MOD) 28 ml - LA ESV SP 2CH (MOD) 75.16 ml - Name Value Normal Range MV E-wave Vmax 0.77 m/sec - MV deceleration time 129 msec - MV A-wave Vmax 0.91 m/sec - MV E:A ratio 0.85 ratio - LV septal e' Vmax 0.06 m/sec - LV lateral e' Vmax 0.1 m/sec - LV E:e' septal ratio 12.8 ratio - LV E:e' lateral ratio 7.7 ratio - Name Value Normal Range LVOT Vmax 1.1 m/sec - Name Value Normal Range IVC diameter 1.09 cm - Name Value Normal Range PV Vmax 0.78 m/sec - PV peak gradient 2.42 mmHg -
[2016-05-15 12:36] LABS: Hematocrit 35 % (35-47); Hemoglobin 11.5 g/dl (12.0-16.0)
--- NOTE | 2016-05-15 13:53 | PN ---
Subjective Date of Service: 05/15/16 Interval History: Patient seen this morning. Says she still has abdominal "soreness" but otherwise feels well. Asked about any further bleeding as nursing reported none and patient stated she had bleeding overnight into the bed. She states nursing was aware of this but it is not documented. No chest pain or SOB. Family History: Unchanged from Admission Social History: Unchanged from Admission Past Medical History: Unchanged from Admission Objective Active Medications: Clopidogrel Bisulfate (Plavix Tab*) 75 mg PO DAILY [facility] Enoxaparin Sodium (Lovenox(*)) 80 mg SUBCUT Q12H [facility] Gabapentin (Neurontin Cap(*)) 400 mg PO Q4HR [facility] Hydroxyzine HCl (Atarax Tab*) 100 mg PO TID PRN Metoprolol Tartrate (Lopressor Tab*) 12.5 mg PO BID WITH MEALS [facility] Pantoprazole Sodium (Protonix Tab (Nf)) 40 mg PO DAILY [facility] Quetiapine Fumarate (Seroquel Tab*) 50 mg PO DAILY [facility] Tramadol HCl (Ultram*) 50 mg PO Q6HR PRN Venlafaxine HCl (Effexor Xr Cap*) 300 mg PO DAILY [facility] Vital Signs 05/14/16 05/14/16 05/14/16 19:00 19:31 19:33 Temperature Pulse Rate 80 90 82 Respiratory 18 Rate Blood Pressure 117/102 140/102 140/92 (mmHg) O2 Sat by Pulse 98 99 99 Oximetry 05/14/16 05/14/16 05/14/16 20:00 20:11 20:34 Temperature 98 F Pulse Rate 85 94 Respiratory 16 20 Rate Blood Pressure 129/92 137/95 (mmHg) O2 Sat by Pulse 95 97 Oximetry 05/15/16 05/15/16 05/15/16 00:01 00:27 01:38 Temperature 98.0 F Pulse Rate 72 Respiratory 16 16 14 Rate Blood Pressure 104/64 (mmHg) O2 Sat by Pulse 96 Oximetry 05/15/16 05/15/16 10:56 11:43 Temperature 98.6 F Pulse Rate 81 Respiratory 18 16 Rate Blood Pressure 101/73 (mmHg) O2 Sat by Pulse 98 Oximetry Oxygen Devices in Use Now: None Appearance: Middle-aged, caucasaian F, laying in bed in NAD Eyes: No Scleral Icterus Ears/Nose/Mouth/Throat: Mucous Membranes Moist Neck: NL Appearance and Movements; NL JVP Respiratory: Symmetrical Chest Expansion and Respiratory Effort, Clear to Auscultation Cardiovascular: NL Sounds; No Murmurs; No JVD, RRR Abdominal: - - Soft, non-distended, TTP in lower abdomen, ecchymoses from lovenox Lymphatic: No Cervical Adenopathy Extremities: No Edema Skin: No Rash or Ulcers Neurological: Alert and Oriented x 3 Result Diagrams: 05/15/16 12:30 05/15/16 04:29 Additional Lab and Data: Lab Results 05/14/16 05/14/16 05/14/16 Range/Units 13:45 13:45 13:45 WBC 4.5 (3.5-10.8) 10^3/ul RBC 5.08 (4.0-5.4) 10^6/ul Hgb 14.3 (12.0-16.0) g/dl Hct 44 (35-47) % MCV 86 (80-97) fL MCH 28 (27-31) pg MCHC 33 (31-36) g/dl RDW 17 H (10.5-15) % Plt Count 338 (150-450) 10^3/ul MPV 8 (7.4-10.4) um3 Neut % (Auto) 74.4 (38-83) % Lymph % (Auto) 17.4 L (25-47) % [place] % (Auto) 5.5 (1-9) % Eos % (Auto) 1.5 (0-6) % Baso % (Auto) 1.2 (0-2) % Absolute Neuts (auto) 3.3 (1.5-7.7) 10^3/ul Absolute Lymphs (auto) 0.8 L (1.0-4.8) 10^3/ul Absolute Monos (auto) 0.2 (0-0.8) 10^3/ul Absolute Eos (auto) 0.1 (0-0.6) 10^3/ul Absolute Basos (auto) 0.1 (0-0.2) 10^3/ul Absolute Nucleated RBC 0 10^3/ul Nucleated RBC % 0 Sodium 136 (133-145) mmol/L Potassium 3.8 (3.5-5.0) mmol/L Chloride 104 (101-111) mmol/L Carbon Dioxide 23 (22-32) mmol/L Anion Gap 9 (2-11) mmol/L BUN 5 L (6-24) mg/dL Creatinine 0.64 (0.51-0.95) mg/dL Est GFR ( Amer) 126.3 (>60) Est GFR (Non-Af Amer) 98.2 (>60) BUN/Creatinine Ratio 7.8 L (8-20) Glucose 88 (70-100) mg/dL Lactic Acid 1.4 (0.5-2.0) mmol/L Calcium 9.8 (8.6-10.3) mg/dL Total Bilirubin 0.30 (0.2-1.0) mg/dL AST 30 (13-39) U/L ALT 17 (7-52) U/L Alkaline Phosphatase 94 (34-104) U/L Troponin I 2.00 H* (<0.04) ng/mL Total Protein 8.1 (6.4-8.9) g/dL Albumin 4.5 (3.2-5.2) g/dL Globulin 3.6 (2-4) g/dL Albumin/Globulin Ratio 1.3 (1-3) Blood Type Antibody Screen 05/14/16 Range/Units 13:45 WBC (3.5-10.8) 10^3/ul RBC (4.0-5.4) 10^6/ul Hgb (12.0-16.0) g/dl Hct (35-47) % MCV (80-97) fL MCH (27-31) pg MCHC (31-36) g/dl RDW (10.5-15) % Plt Count (150-450) 10^3/ul MPV (7.4-10.4) um3 Neut % (Auto) (38-83) % Lymph % (Auto) (25-47) % [place] % (Auto) (1-9) % Eos % (Auto) (0-6) % Baso % (Auto) (0-2) % Absolute Neuts (auto) (1.5-7.7) 10^3/ul Absolute Lymphs (auto) (1.0-4.8) 10^3/ul Absolute Monos (auto) (0-0.8) 10^3/ul Absolute Eos (auto) (0-0.6) 10^3/ul Absolute Basos (auto) (0-0.2) 10^3/ul Absolute Nucleated RBC 10^3/ul Nucleated RBC % Sodium (133-145) mmol/L Potassium (3.5-5.0) mmol/L Chloride (101-111) mmol/L Carbon Dioxide (22-32) mmol/L Anion Gap (2-11) mmol/L BUN (6-24) mg/dL Creatinine (0.51-0.95) mg/dL Est GFR ( Amer) (>60) Est GFR (Non-Af Amer) (>60) BUN/Creatinine Ratio (8-20) Glucose (70-100) mg/dL Lactic Acid (0.5-2.0) mmol/L Calcium (8.6-10.3) mg/dL Total Bilirubin (0.2-1.0) mg/dL AST (13-39) U/L ALT (7-52) U/L Alkaline Phosphatase (34-104) U/L Troponin I (<0.04) ng/mL Total Protein (6.4-8.9) g/dL Albumin (3.2-5.2) g/dL Globulin (2-4) g/dL Albumin/Globulin Ratio (1-3) Blood Type B Positive Antibody Screen Pending Assess/Plan/Problems-Billing Assessment: Abdominal pain, possible syncope and troponin elevation in a 50 yo F with hx of DVT on Lovenox, chronic pain, anxiety, PVD s/p LLE iliac stent - Patient Problems (1) Abdominal pain Current Visit: Yes Comment: Etiology unclear. Despite her reports of vaginal bleeding nothing has been witnessed by any hospital staff. Patients Hb dropped ~ 3 pts overnight but this may have been due to IVF/dry, now stable around patient 's baseline. Continue tramadol for now. (2) Troponin I above reference range Current Visit: Yes Comment: Repeat troponins have remained elevated. CK/CK-MB trending down and now WNL. Echo was unremarkable. Started Metoprolol and continue home Lovenox and Plavix. Dr. Flynn to evaluate the patient. (3) Left leg DVT Current Visit: No Comment: Continue Lovenox (4) Anxiety and depression Current Visit: No SNOMED Code(s): 304389103 Comment: Continue Venlafaxine, Seroquel, Gabapenin, Atarax. (5) Chronic back pain Current Visit: Yes SNOMED Code(s): 218875744 Comment: Continue home Tramadol. (6) PVD (peripheral vascular disease) Current Visit: Yes Comment: Continue Plavix (7) DVT prophylaxis Current Visit: No Comment: Lovenox
--- NOTE | 2016-05-15 17:26 | CONSULT ---
Subjective Date of Service: 05/15/16 Interval History: Admission Date: 05/14/16 Consult 05/15/2016 Provider: Pa Dawson MD PRIMARY CARE PHYSICIAN: Dr. Agnlin. 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 and who presents with lower abdomen pain cramping and some vaginal bleeding since 05/10/2015. The pain persisted and she was evaluated in the ER on 05/12 and showing persistent DVT. She ran out of tramadol. She came back to the ER with more vaginal bleeding. She had reported nausea and vomiting to Dr. Dawson but denied this to me. She denies any recent chest pain, dyspnea, lightheadedness, palpitations. She has had seizures in the past. She had an episode of LOC in the car on the way to hospital the details are unclear after a history was taken. There has been no arrhythmias. A troponin was checked and was elevated about 3. An EKG did not show any ischemic changes. A TTE did not show any LV dysfunction or obvious wall motion abnormalities. A CT PE study did not show any PE. She is asymptomatic at this time except for lower abdomen cramping. PAST MEDICAL HISTORY: DVT in November 2015, chronic back pain, anxiety, depression, PAST SURGICAL HISTORY: D and C, , lumbar fusion, tubal ligation, cholecystectomy, venous stenting lower extremities 02/2016 ALLERGIES: Reports allergies to PENICILLIN, TORADOL, NSAIDS, FLEXERIL, TOPAMAX , TRAMADOL, ERYTHROMYCIN, [place], TUMS, and LIDODERM. FAMILY HISTORY: Father with CAD, mother with CVA. SOCIAL HISTORY: The patient smoked a half pack per day for 16 years. Denies any alcohol use. Denies any illicit drug use. Medications Active Medications: Clopidogrel Bisulfate (Plavix Tab*) 75 mg PO DAILY [facility] Last Admin: 05/15/16 09:09 Dose: 75 mg Enoxaparin Sodium (Lovenox(*)) 80 mg SUBCUT Q12H [facility] Last Admin: 05/15/16 09:10 Dose: 80 mg Gabapentin (Neurontin Cap(*)) 400 mg PO Q4HR [facility] Last Admin: 05/15/16 13:53 Dose: 400 mg Hydroxyzine HCl (Atarax Tab*) 100 mg PO TID PRN PRN Reason: ANXIETY Last Admin: 05/14/16 20:50 Dose: 100 mg Metoprolol Tartrate (Lopressor Tab*) 12.5 mg PO BID WITH MEALS [facility] Last Admin: 05/15/16 09:15 Dose: 12.5 mg Pantoprazole Sodium (Protonix Tab (Nf)) 40 mg PO DAILY [facility] Last Admin: 05/15/16 09:10 Dose: 40 mg Quetiapine Fumarate (Seroquel Tab*) 50 mg PO DAILY [facility] Last Admin: 05/15/16 09:11 Dose: 50 mg Tramadol HCl (Ultram*) 50 mg PO Q6HR PRN PRN Reason: pain Last Admin: 05/15/16 11:43 Dose: 50 mg Venlafaxine HCl (Effexor Xr Cap*) 300 mg PO DAILY [facility] Last Admin: 05/15/16 09:11 Dose: 300 mg Home Medications: Venlafaxine ER (NF) [Effexor ER (NF)] 300 mg PO DAILY 10/24/15 [History Confirmed 05/14/16] hydrOXYzine HCL TAB* [Atarax TAB*] 100 mg PO TID PRN 12/14/15 [History Confirmed 05/14/16] Enoxaparin(*) [Lovenox(*)] 100 mg SUBCUT SEE INSTRUCTIONS 03/13/16 [History Confirmed 05/14/16] Gabapentin CAP(*) [Neurontin 400 mg CAP(*)] 400 mg PO Q4HR 03/13/16 [History Confirmed 05/14/16] QUEtiapine TAB* [SEROquel TAB*] 50 mg PO DAILY 05/14/16 [History Confirmed 05/14] Review of Systems - Measurements Intake and Output: Intake and Output Last 24 Hours 05/13/16 05/14/16 05/15/16 05/16/16 06:59 06:59 06:59 06:59 Weight 162 lb - Review of Systems Constitutional Symptoms: Positive: Fatigue Negative: Weight Gain, Weight Loss, Fever, Night Sweats Dermatology: Positive: Other Negative: Normal, Rash, Skin Lesions, Skin Lumps HEENT: Positive: Sinus Problem Negative: Normal, Change in Hearing, Vertigo Eyes: Negative: Change in Vision, Double Vision, Eye Pain Thyroid: Negative: Goiter, Thyroid Nodule, Cold Intolerance, Heat Intolerance, Sweatiness, Tremor, Frequent Defecation, Constipation, Palpitations, Primary Hypothyroidism, Primary Hyperthyroidism, Weight Loss, Weight Gain Pulmonary: Negative: Cough, Sputum, Hemoptysis, Wheezing, Respiratory Distress, Shortness of Breath, COPD Cardiology: Negative: Chest Pain, Shortness of Breath, Palpitations, Swelling of Ankles, Peripheral Vascular Dis, Edema, Claudication, Paroxysmal Nocturnal Dyspnea, Orthopnea Gastroenterology: Positive: Abdominal Pain Negative: Anorexia, Heartburn, Constipation, Haematemesis, Melena Genital - Urinary: Negative: Dysuria, Hematuria, Polyuria Musculoskeletal: Negative: Joint Pain, Joint Stiffness, Arthritis, Osteoporosis, Low Back Pain Endocrinology: Negative: Obesity, Diabetes, Hyperglycemia, Hypoglycemia, Polydipsia, Polyuria Hematologic/Lymphatic: Positive: Use of Anticoagulant, Use of Antiplatelet Drugs Negative: Anemia, Hx Leukemia, Hx Lymphoma Neurology: Positive: Hx Seizures Negative: Headaches, Migraines, Change in Vision, Diplopia, Dizziness, Change in Balancing, Change in Coordination, Change in Memory, Change in Speech , Change in Sphincter Function, Change in Walking, Numbness\Paresthesiae, Unexplained Weakness, Hx of Stroke\TIA Review of Systems Statement: All other review of systems negative, unless stated above. Objective Vital Signs: Temp Pulse Resp BP Pulse Ox 98.0 F 88 16 124/76 95 05/15/16 15:31 05/15/16 15:31 05/15/16 15:53 05/15/16 15:31 05/15/16 15:31 Oxygen Devices in Use Now: None Ears/Nose/Mouth/Throat: NL Teeth, Lips, Gums Neck: NL Appearance and Movements; NL JVP Respiratory: Symmetrical Chest Expansion and Respiratory Effort, Clear to Auscultation Cardiovascular: NL Sounds; No Murmurs; No JVD, RRR, No Edema Abdominal: NL Sounds; No Tenderness; No Distention Extremities: No Edema Skin: No Rash or Ulcers Neurological: Alert and Oriented x 3 Laboratory Results: 05/15/16 12:30 05/15/16 04:29 Total Bilirubin 0.30 mg/dL (0.2-1.0) 05/14/16 13:45 AST 30 U/L (13-39) 05/14/16 13:45 ALT 17 U/L (7-52) 05/14/16 13:45 Alkaline Phosphatase 94 U/L (34-104) 05/14/16 13:45 CK-MB (CK-2) 4.7 ng/mL (0.6-6.3) 05/15/16 04:29 Total Protein 8.1 g/dL (6.4-8.9) 05/14/16 13:45 Albumin 4.5 g/dL (3.2-5.2) 05/14/16 13:45 Globulin 3.6 g/dL (2-4) 05/14/16 13:45 Albumin/Globulin Ratio 1.3 (1-3) 05/14/16 13:45 05/14/16 05/14/16 05/14/16 13:45 18:45 21:57 Troponin I 2.00 H* 1.96 H* 2.14 H* 05/15/16 04:29 Troponin I 2.29 H* Diagnostic Imaging: ekg admission: sinus tachyardia, no ischemic changes TTE 04/2016: Normal LVEf 55-60%, septal knuckle, no WMA, normal RV size and function, no significant valvular abnormalities noted, unable to estimate PASP CT PE study: No PE identified, common iliac femoral vein stent noted Assessment/Plan Juli Agosto is a 50 year old woman with a 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 seizure/LOC prior to admission who presents with an elevated troponin ~ 2 relatively stable serially and out of proportion to a ck-mb of 13 peak. EKG and TTE unremarkable and CT PE study with no PE. Telemetry no arrhythmias. No chest pain or anginal symptoms - I am unsure what the cause of the elevated troponin is. There is no evidence of an acute type 1 plaque rupture ACS although a more recent coronary event cannot be entirely excluded. An elevated troponin can be seen in the setting of seizure which she ? had on way to hospital. We will further risk stratify with a vasodilator (unable to use treadmill due to DVT related pain) stress MPI. She should continue anti-platelet/anti-coagulant regimen as per IR and Hematology. She should be on a statin and this was ordered and I also ordered a lipid panel. Patient counseled that continued smoking will lead to a much higher risk (even in the short term and regardless of stress test results) of things including but not limited to a plaque rupture heart attack, stroke, heart failure and . Quitting smoking immediately can reduce this risk. - Would continue on telemetry for now and I also ordered a repeat AM EKG. Thank you for allowing me to participate in the cardiovascular care of this patient. Please do hesitate to contact me with questions or concerns.
[2016-05-15] MEDS: hydrOXYzine HCL TAB* 50 MG PO PRN (17:50)
[2016-05-15] MEDS ORDERED: Atorvastatin* 40 MG TAB PO SCH (21:00)
[2016-05-16] MEDS: Gabapentin CAP(*) 400 MG PO SCH ×4 (02:21→15:15)
[2016-05-16] MEDS: traMADol TAB* 50 MG PO PRN ×2 (02:22→12:12)
[2016-05-16] MEDS: hydrOXYzine HCL TAB* 50 MG PO PRN (02:22)
[2016-05-16] MEDS ORDERED: Regadenoson* 0.4 MG/5 ML SYRINGE ONE (08:38)
[2016-05-16] MEDS: QUEtiapine TAB* 25 MG PO SCH (12:11)
[2016-05-16] MEDS: Venlafaxine EXT RELEASE CAP* 75 MG PO SCH (12:12)
[2016-05-16] MEDS: Clopidogrel TAB* 75 MG PO SCH (12:13)
[2016-05-16] MEDS: Enoxaparin(*) 80 MG/0.8 ML SYR SUBCUT SCH (12:14)
[2016-05-16] MEDS: Pantoprazole TAB (NF) 40 MG TAB PO SCH (12:14)
[2016-05-16 12:24] VITALS: BP 133/78
--- NOTE | 2016-05-16 12:45 | RAD ---
Edited for charges. INDICATION: Chest pain COMPARISON: None TECHNIQUE: A single day SPECT protocol was utilized. Rest images were acquired following the intravenous injection of 10.4 millicuries of technetium 99m tetrofosmin. Pharmacologic stress images were acquired following the intravenous administration of 26.0 millicuries of technetium 99m tetrofosmin. FINDINGS: There is a largely reversible anterior wall defect consistent with ischemia. There are no other defects or stress-induced or fixed nature. The cardiac chamber size is normal. There are no wall motion abnormalities. The ejection fraction is calculated at 57 percent during stress. IMPRESSION: MODERATE SIZED ISCHEMIC DEFECT ANTERIOR WALL. ASSESSMENT: INTERMEDIATE-RISK Based on imaging criteria from ACC/AHA 2002 Guideline Update for the Management of Patients With Chronic Stable Angina Table 23. Noninvasive Risk Stratification. MTDD
--- NOTE | 2016-05-16 13:06 | PN ---
Cardiology Progress Note Patient with likely recent NSTEMI, diagonal ischemia on stress test. Discussed with Dr. Mike Macias from interventional cardiology for consideration of coronary angiography +/- revascularization
--- NOTE | 2016-05-16 13:41 | PN ---
Subjective Date of Service: 05/16/16 Interval History: Patient seen early PM. Reports continued lower abdominal soreness. Says she has had a little "spotting" but no further bleeding. No chest pain, SOB. Hungry. Family History: Unchanged from Admission Social History: Unchanged from Admission Past Medical History: Unchanged from Admission Objective Active Medications: Atorvastatin Calcium (Lipitor*) 40 mg PO 2100 [facility] Clopidogrel Bisulfate (Plavix Tab*) 75 mg PO DAILY [facility] Enoxaparin Sodium (Lovenox(*)) 80 mg SUBCUT Q12H [facility] Gabapentin (Neurontin Cap(*)) 400 mg PO Q4HR [facility] Hydroxyzine HCl (Atarax Tab*) 100 mg PO TID PRN Metoprolol Tartrate (Lopressor Tab*) 12.5 mg PO Q12HR [facility] Pantoprazole Sodium (Protonix Tab (Nf)) 40 mg PO DAILY [facility] Quetiapine Fumarate (Seroquel Tab*) 50 mg PO DAILY [facility] Tramadol HCl (Ultram*) 50 mg PO Q6HR PRN Venlafaxine HCl (Effexor Xr Cap*) 300 mg PO DAILY [facility] Vital Signs 05/15/16 05/15/16 05/15/16 14:50 15:31 15:53 Temperature 98.0 F Pulse Rate 88 Respiratory 16 16 16 Rate Blood Pressure 124/76 (mmHg) O2 Sat by Pulse 95 Oximetry 05/15/16 05/15/16 05/15/16 17:46 17:47 19:46 Temperature Pulse Rate Respiratory 16 16 16 Rate Blood Pressure (mmHg) O2 Sat by Pulse Oximetry 05/15/16 05/15/16 05/15/16 19:47 20:00 21:32 Temperature 98.0 F Pulse Rate 81 Respiratory 14 16 16 Rate Blood Pressure 108/67 (mmHg) O2 Sat by Pulse 99 Oximetry 05/15/16 05/15/16 05/16/16 23:32 23:59 02:21 Temperature 97.8 F Pulse Rate 69 Respiratory 14 16 14 Rate Blood Pressure 131/76 (mmHg) O2 Sat by Pulse 98 Oximetry 05/16/16 05/16/16 05/16/16 02:22 03:46 04:21 Temperature 97.7 F Pulse Rate 77 Respiratory 14 16 14 Rate Blood Pressure 134/75 (mmHg) O2 Sat by Pulse 96 Oximetry 05/16/16 05/16/16 05/16/16 04:22 05:52 07:52 Temperature Pulse Rate Respiratory 14 14 16 Rate Blood Pressure (mmHg) O2 Sat by Pulse Oximetry 05/16/16 05/16/16 05/16/16 08:04 12:11 12:12 Temperature 98.3 F Pulse Rate 78 Respiratory 18 16 16 Rate Blood Pressure 133/78 (mmHg) O2 Sat by Pulse 96 Oximetry 05/16/16 12:24 Temperature Pulse Rate Respiratory 16 Rate Blood Pressure (mmHg) O2 Sat by Pulse Oximetry Oxygen Devices in Use Now: None Appearance: Middle-aged, F, laying in bed in NAD Eyes: No Scleral Icterus Ears/Nose/Mouth/Throat: Mucous Membranes Moist Neck: NL Appearance and Movements; NL JVP Respiratory: Symmetrical Chest Expansion and Respiratory Effort, Clear to Auscultation Cardiovascular: NL Sounds; No Murmurs; No JVD, RRR Abdominal: - - Soft, non-distended, TTP in lower abdominal quadrants, no rebound /guarding Lymphatic: No Cervical Adenopathy Extremities: No Edema Skin: No Rash or Ulcers Neurological: Alert and Oriented x 3 Result Diagrams: 05/15/16 12:30 05/15/16 04:29 Assess/Plan/Problems-Billing Assessment: Abdominal pain, possible syncope and troponin elevation in a 50 yo F with hx of DVT on Lovenox, chronic pain, anxiety, PVD s/p LLE iliac stent - Patient Problems (1) Abdominal pain Current Visit: Yes Comment: Etiology unclear. Despite her reports of vaginal bleeding nothing has been witnessed by any hospital staff and she now says this has basically resolved. Patients Hb dropped ~3 pts but has been stable, will recheck now. Continue tramadol for now. (2) Troponin I above reference range Current Visit: Yes Comment: Appreciate Cardiology assistance, stress test shows ischemic defect in anterior wall. Dr. Macias to evaluate the patient. For now, continue Metoprolol and continue home Lovenox and Plavix. (3) Left leg DVT Current Visit: No Comment: Continue Lovenox (4) Anxiety and depression Current Visit: No SNOMED Code(s): 027389322 Comment: Continue Venlafaxine, Seroquel, Gabapenin, Atarax. (5) Chronic back pain Current Visit: Yes SNOMED Code(s): 222467298 Comment: Continue home Tramadol. (6) PVD (peripheral vascular disease) Current Visit: Yes Comment: Continue Plavix (7) DVT prophylaxis Current Visit: No Comment: Lovenox
[2016-05-16] MEDS ORDERED: Metoprolol Tartrate TAB* 25 MG PO SCH (14:00)
[2016-05-16] MEDS ORDERED: Aspirin Low Dose CHEW TAB* 81 MG PO SCH (14:00)
[2016-05-16 14:08] LABS: Hematocrit 36 % (35-47); Hemoglobin 11.9 g/dl (12.0-16.0); Mean Corpuscular HGB Conc 33 g/dl (31-36); Mean Corpuscular Hemoglobin 28 pg (27-31); Mean Corpuscular Volume 85 fL (80-97); Mean Platelet Volume 8 um3 (7.4-10.4); Red Blood Count 4.21 10^6/ul (4.0-5.4); Red Cell Distribution Width 17 % (10.5-15); White Blood Count 3.6 10^3/ul (3.5-10.8)
--- NOTE | 2016-05-17 00:59 | DS ---
CC: Dr. Anglin DISCHARGE SUMMARY: DATE OF ADMISSION: 05/14/16 DATE OF DISCHARGE: 05/16/16 PRIMARY CARE PHYSICIAN: Dr. Anglin. PRINCIPAL DISCHARGE DIAGNOSES: 1. Abdominal pain. 2. Non-ST elevated myocardial infarction. SECONDARY DIAGNOSES: 1. History of deep venous thrombosis. 2. Chronic back pain. 3. Peripheral vascular disease status post left lower extremity stent. 4. Anxiety. 5. Depression. DISCHARGE MEDICATION REGIMEN: 1. Toprol XL 25 mg by mouth daily. 2. Norvasc 5 mg by mouth daily. 3. Plavix 75 mg by mouth daily. 4. Atorvastatin 40 mg by mouth daily. 5. Gabapentin 400 mg by mouth every 4 hours. 6. Tramadol 50 mg by mouth every 6 hours as needed for pain. 7. Lovenox 80 mg subcu every 12 hours. 8. Protonix 40 mg by mouth daily. 9. Venlafaxine 300 mg by mouth daily. 10. Hydralazine 100 mg by mouth 3 times daily as needed for anxiety. 11. Seroquel 50 mg by mouth daily. STUDIES DONE DURING HOSPITALIZATION: CT of the brain, impression: No intracranial mass or hemorrhag e is noted. CTA of the chest, abdomen, and pelvis. Impression: No pulmonary embolism noted. No aneurysmal dila tation of the ascending aorta, descending thoracic aorta, and abdominal aorta. There is a left comm on iliac stent noted. There is a hiatal hernia noted in the subcutaneous fat in the left lower abdo men just to the left of the umbilicus with a 3.1 cm soft tissue mass with skin induration. Transthoracic echocardiogram. Conclusion: The left ventricular chamber size is normal. There is a prominent septal knuckle. There is a normal left ventricular systolic function with an estimated e jection fraction of 55% to 60%. Global left ventricular wall motion and contractility within normal limits. The left atrial chamber size is normal. The right ventricular chamber size and systolic f unction are within normal limits. The aortic valve leaflets are mildly thickened, unable to estimat e the right ventricular systolic pressure. There is no significant pericardial effusion. Compared to prior study from 2007, no significant changes are noted. Nuclear cardiac stress test. Impression: Moderate sized ischemic defect in the anterior wall. Ass essment; intermediate risk. HISTORY OF PRESENT ILLNESS AND HOSPITAL SUMMARY: Please see the full history and physical from 04/27 12/11 for full details. Briefly, Ms. Agosto is a 50-year-old female with the past medical history as a angela, who presented to the hospital with progressive abdominal pain. No reported vaginal bleeding. The patient was seen in the ED on 05/12/16 and was discharged home and returned on 05/14/16. She h ad an extensive testing done that showed no etiology for her abdominal pain. She reported significa nt vaginal bleeding, although none was noted while here in the hospital. She had a 3-point drop in her hemoglobin after IV fluids the first day, into the second day; however, this remained stable and around her baseline. The patient was incidentally found to have an elevated troponin on admission at 2.00. Her CK and CK -MB were slightly elevated as well. Cardiology was consulted, recommended a stress test which was d one as above. Please note that throughout the hospitalization the patient had no chest pain and no shortness of breath. With the patient's positive stress test, Dr. Macias, the interventional cardio logist was called. He spoke with the patient who preferred to opt for medical management at this ti ma and not to proceed with cardiac catheterization. After further discussion with Dr. Flynn and co nfirming that the patient does in fact take Lovenox at home, decision was made to continue her on Pl avix and with the addition of atorvastatin, metoprolol succinate, and Norvasc. The patient will fol low up with Dr. Anglin as an outpatient. It is strongly recommended that the patient undergo exercis e stress test in the next few weeks to see if any pain or changes are noted. If so, we again would strongly recommend proceeding with cardiac catheterization. TIME SPENT: Total time spent on this discharge, 35 minutes. This is a summary of the hospitalizati on. Please see the full medical record for further details. [id number]/[facility] #: [id number]
--- NOTE | 2016-07-19 14:49 | ED ---
Rojas Sanchez Karl, scribed for Chris Rosado MD on 05/14/16 at 1646 . Progress - Progress Note Progress Note: CTA Chest/Abd/Pelvis (Radiologist)IMPRESSION: NO PULMONARY EMBOLUS IS NOTED. NO ANEURYSMAL DILATATION OF THE ASCENDING AORTA, DESCENDING THORACIC AORTA AND ABDOMINAL AORTA. THERE IS A LEFT COMMON ILIAC STENT NOTED. THERE IS A HIATAL HERNIA NOTED. IN THE SUBCUTANEOUS FAT. AGAIN NOTED IN THE SUBCUTANEOUS FAT IN THE LEFT LOWER ABDOMEN JUST TO THE LEFT OF THE UMBILICUS IS A 3.1 CM SOFT TISSUE MASS WITH SKIN INDURATION. THIS IS OF UNCERTAIN ETIOLOGY AND CLINICAL CORRELATION IS SUGGESTED TO EXCLUDE INFECTION. 2 of 2 Course/Dx - Course Course Of Treatment: Presenting for three days of progressive vaginal bleeding, pelvic exam shows only scant blood. Syncopal episodes today, pressure soft on arrival. Blood counts normal, no acute abdomen/PE/aortic dissection. Abdominal pain is chronic. Troponin related to hypotension/syncope vs NSTEMI. Dr. Gabriel (cardiology) and Dr. Alanis aware - Diagnoses Provider Diagnoses: Chronic bilateral lower abdominal pain, Vaginal bleeding, Syncope, NSTEMI (non- ST elevated myocardial infarction) - Critical Care Time Critical Care Time: 30-74 min The documentation as recorded by the Rojas blanco Karl accurately reflects the service I personally performed and the decisions made by Alonzo wolff Jerry, MD.
== END 2016-05-16 18:00 | disposition home or self-care (01) | DRG 190 ==
LOC: ED 13:24 → MEDTELE 18:37 → OBSVTOIN 05-15 14:15
PROVIDERS: ADMIT Hospitalist; ATTEND Hospitalist
DX: I21.4 Non-ST elevation (NSTEMI) myocardial infarction (principal); F03.90 Unspecified dementia, unspecified severity, without behavioral disturbance, psychotic disturbance, mood disturbance, and anxiety; I73.9 Peripheral vascular disease, unspecified; R10.9 Unspecified abdominal pain; Z88.8 Allergy status to other drugs, medicaments and biological substances; Z88.0 Allergy status to penicillin; Z88.6 Allergy status to analgesic agent; Z88.1 Allergy status to other antibiotic agents; Z86.718 Personal history of other venous thrombosis and embolism; M79.7 Fibromyalgia; M19.90 Unspecified osteoarthritis, unspecified site; Z98.1 Arthrodesis status; M54.9 Dorsalgia, unspecified; G89.29 Other chronic pain; G43.909 Migraine, unspecified, not intractable, without status migrainosus; F41.9 Anxiety disorder, unspecified; F32.9 Major depressive disorder, single episode, unspecified; Z98.51 Tubal ligation status; Z82.49 Family history of ischemic heart disease and other diseases of the circulatory system; Z83.3 Family history of diabetes mellitus; Z82.0 Family history of epilepsy and other diseases of the nervous system; Z80.0 Family history of malignant neoplasm of digestive organs; F17.210 Nicotine dependence, cigarettes, uncomplicated; Z82.3 Family history of stroke; K44.9 Diaphragmatic hernia without obstruction or gangrene; G40.909 Epilepsy, unspecified, not intractable, without status epilepticus; Z79.02 Long term (current) use of antithrombotics/antiplatelets; N93.9 Abnormal uterine and vaginal bleeding, unspecified
CPT/HCPCS: 36415; 70450; 71275; 74174; 78452; 80048; 80053; 80061; 80307; 81003; 81015; 82550; 82553; 83605; 83690; 84484; 85014; 85018; 85025; 86850; 86900; 86901; 93005; 93017; 93306; 96374; 96375; 99282; 99406; A9270-GY; A9502; G0378; J1650; J2270; J2405; J2785; Q9967

== ENCOUNTER 2016-05-18 11:51 | Emergency (ER) | payer OTHER ==
[2016-05-18 11:55] VITALS: BP 152/76
== END 2016-05-18 16:15 | disposition left against medical advice (07) ==
LOC: ED 11:51
DX: R07.9 Chest pain, unspecified (principal); Z53.21 Procedure and treatment not carried out due to patient leaving prior to being seen by health care provider
CPT/HCPCS: 93005

== ENCOUNTER 2016-05-18 20:32 | Observation (INO) | payer OTHER ==
[2016-05-18 21:45] LABS: Hematocrit 37 % (35-47); Hemoglobin 12.1 g/dl (12.0-16.0); Mean Corpuscular HGB Conc 33 g/dl (31-36); Mean Corpuscular Hemoglobin 29 pg (27-31); Mean Corpuscular Volume 86 fL (80-97); Mean Platelet Volume 9 um3 (7.4-10.4); Red Blood Count 4.25 10^6/ul (4.0-5.4); Red Cell Distribution Width 17 % (10.5-15); White Blood Count 3.6 10^3/ul (3.5-10.8)
--- NOTE | 2016-05-18 22:07 | RAD ---
INDICATION: Chest pain. COMPARISON: Comparison is made with a prior chest x-ray study from November 12, 2015. TECHNIQUE: A portable view of the chest was obtained. FINDINGS: Cardiac and mediastinal contours appear to be within normal limits. The lungs are clear. No pleural effusion is seen. IMPRESSION: NO EVIDENCE FOR ACUTE DISEASE.
[2016-05-18 22:17] LABS: Albumin 3.6 g/dL (3.2-5.2); BUN/Creatinine Ratio 10.9 (8-20); C Reactive Protein 11.39 mg/L (< 5.00); Calcium 9.2 mg/dL (8.6-10.3); EGFR African American 126.3 (>60); EGFR Non-African American 98.2 (>60); Globulin 2.8 g/dL (2-4); Magnesium 2.1 mg/dL (1.9-2.7); Potassium 2.9 mmol/L (3.5-5.0); Total Bilirubin 0.3 mg/dL (0.2-1.0); Total Protein 6.4 g/dL (6.4-8.9)
[2016-05-18 22:21] LABS: Troponin I 0.15 ng/mL (<0.04)
[2016-05-18 22:30] LABS: TSH (Thyroid Stimulating Horm) 1.84 mcIU/mL (0.34-5.60)
[2016-05-18] MEDS ORDERED: Ondansetron INJ* 2 MG/ML VIAL IV ONE (23:17)
[2016-05-18] MEDS ORDERED: Morphine INJ* 4 MG/ML 1 ML CARPUJECT IV ONE (23:18)
[2016-05-18] MEDS ORDERED: Potassium Chlor TAB* 20 MEQ TAB.ER PO ONE (23:25)
--- NOTE | 2016-05-18 23:27 | ED ---
Marcus Sanchez Erika, scribed for Jelani Hurtado MD on 05/18/16 at 2214 . HPI Chest Pain - HPI Summary HPI Summary: Patient is a 50-year-old female presenting to the ED with a CC of chest pain starting this morning. Pt describes the pain as a tightness located midsternal and radiating to the bilateral lower anterior chest. She also reports that she had a syncopal episode this morning while doing the dishes, which lasted 2-3 minutes. Pt came to the ED, and LWBS. The chest tightness returned, so pt came back to the ED. She rates the tightness as a 9/10 at a its worst, and a 7/10 currently. She denies associated nausea and diaphoresis. Pt was recently admitted to the hospital with an elevated troponin, and declined a cardiac catheterization at the time. Currently, pt states she would elect to do the cardiac catheterization. She is not taking aspirin daily as she is allergic, but is taking plavix daily. She does not take NTG. Hx HTN - takes medication. - History of Current Complaint Chief Complaint: EDChestPainROMI Time Seen by Provider: 05/18/16 21:27 Hx Obtained From: Patient, Family/Shirrer - Boyfriend Onset/Duration: Started Hours Ago, Atraumatic, Still Present Timing: Intermittent, Lasting Hours Current Severity: Moderate Pain Intensity: 9 Pain Scale Used: 0-10 Numeric Chest Pain Location: Mid Sternal, Left Anterior, Right Anterior Character: Tightness Aggravating Factor(s): Nothing Alleviating Factor(s): Nothing Associated Signs and Symptoms: Negative: Diaphoresis, Nausea - Additional Pertinent History Primary Care Physician: [id number] - Allergy/Home Medications Allergies/Adverse Reactions: Allergies Allergy/AdvReac Type Severity Reaction Status Date / Time Cyclobenzaprine Allergy Severe Difficulty Verified 05/18/16 11:58 [From Flexeril] Swallowing NSAIDs Allergy Intermediate Itching Verified 05/18/16 11:58 Ketorolac Tromethamine Allergy Mild Difficulty Verified 05/18/16 11:58 [From Toradol] Swallowing Penicillins [PCN] Allergy Mild Rash Verified 05/18/16 11:58 Clonazepam [From Klonopin] Allergy Rash Verified 05/18/16 11:58 Topiramate [From Topamax] Allergy Headache Verified 05/18/16 11:58 Erythromycin AdvReac See Comment Verified 05/18/16 11:58 nome Allergy Severe Swelling Uncoded 05/18/16 11:58 Of Face,Lips,& Throat tums Allergy Intermediate Dizziness Uncoded 05/18/16 11:58 lidoderm Allergy Mild Rash Uncoded 05/18/16 11:58 PMH/Surg Hx/FS Hx/Imm Hx Endocrine/Hematology History: Reports: Hx Anticoagulant Therapy - lovenox, 4 months Cardiovascular History: Reports: Hx Deep Vein Thrombosis - 1993 left calf, Hx Syncope Respiratory History: Reports: Hx Pneumonia - 2015 GI History: Reports: Hx Gall Bladder Disease - taken out 2012, Hx Gastroesophageal Reflux Disease - 2015, Hx Gastrointestinal Bleed - lesions 2015 Musculoskeletal History: Reports: Hx Back Problems - chronic back pain, T4-T5 fusion, Hx Fibromyalgia - 2005 Sensory History: Reports: Hx Contacts or Glasses - Reading Opthamlomology History: Reports: Hx Contacts or Glasses - Reading Neurological History: Reports: Hx Dementia, Hx Migraine, Hx Seizures Comment Only: Other Neuro Impairments/Disorders - prev back surg, bells palsy chronic back pain - L4-5 spinal fusion 2009 Psychiatric History: Reports: Hx Anxiety, Hx Depression - Surgical History Surgery Procedure, Year, and Place: D&C-[place] [facility] [place] [facility] [place] lumbar FUSION - 2009 [place]. TUBAL LIGATION 1997. Gall bladder 2012 Hx Anesthesia Reactions: No - Immunization History Date of Tetanus Vaccine: 04/27/15 Date of Influenza Vaccine: None Infectious Disease History: No Infectious Disease History: Denies: Hx Clostridium Difficile, Hx Hepatitis, Hx Human Immunodeficiency Virus (HIV), Hx of Known/Suspected MRSA, Hx Shingles, Hx Tuberculosis, Hx Known/ Suspected VRE, Hx Known/Suspected VRSA, History Other Infectious Disease, Traveled Outside the in Last 30 Days - Family History Known Family History: Positive: Cardiac Disease, Hypertension, Diabetes, Seizure Disorder - paternal, maternal, Other Family History: Mother alive in 60s with Hx of gallbladder CA, DVT. Father alive in 60s with Hx of CAD - Social History Alcohol Use: None Hx Substance Use: No Substance Use Type: Reports: None Hx Tobacco Use: Yes Smoking Status (MU): Light Every Day Tobacco Smoker Type: Cigarettes Amount Used/How Often: 4 Cigarettes/DAY Review of Systems Negative: Skin Diaphoresis Positive: Chest Pain Negative: Nausea Positive: Syncope All Other Systems Reviewed And Are Negative: Yes Physical Exam Triage Information Reviewed: Yes Vital Signs On Initial Exam: Initial Vitals Temp Pulse Resp BP Pulse Ox 97.8 F 98 16 114/86 100 05/18/16 20:33 05/18/16 20:33 05/18/16 20:33 05/18/16 20:33 05/18/16 20:33 Vital Signs Reviewed: Yes Appearance: Positive: Well-Appearing, No Pain Distress Skin: Positive: Warm, Skin Color Reflects Adequate Perfusion, Dry Head/Face: Positive: Normal Head/Face Inspection Eyes: Positive: EOMI, WILLIAMS ENT: Positive: Normal ENT inspection Neck: Positive: Supple, Nontender Respiratory/Lung Sounds: Positive: Clear to Auscultation, Breath Sounds Present Cardiovascular: Positive: RRR Abdomen Description: Positive: Nontender, Soft Bowel Sounds: Positive: Present Musculoskeletal: Positive: Normal, Strength/ROM Intact Neurological: Positive: Normal, Sensory/Motor Intact, Alert, Oriented to Person Place, Time Psychiatric: Positive: Affect/Mood Appropriate - [place] Coma Scale Coma Scale Total: 15 Diagnostics - Vital Signs Vital Signs Temp Pulse Resp BP Pulse Ox 05/18/16 20:33 97.8 F 98 16 114/86 100 - Laboratory Lab Results: Lab Results 05/18/16 05/18/16 Range/Units 21:35 21:35 WBC 3.6 (3.5-10.8) 10^3/ul RBC 4.25 (4.0-5.4) 10^6/ul Hgb 12.1 (12.0-16.0) g/dl Hct 37 (35-47) % MCV 86 (80-97) fL MCH 29 (27-31) pg MCHC 33 (31-36) g/dl RDW 17 H (10.5-15) % Plt Count 254 (150-450) 10^3/ul MPV 9 (7.4-10.4) um3 Neut % (Auto) 47.2 (38-83) % Lymph % (Auto) 41.9 (25-47) % Kane % (Auto) 6.4 (1-9) % Eos % (Auto) 3.3 (0-6) % Baso % (Auto) 1.2 (0-2) % Absolute Neuts (auto) 1.7 (1.5-7.7) 10^3/ul Absolute Lymphs (auto) 1.5 (1.0-4.8) 10^3/ul Absolute Monos (auto) 0.2 (0-0.8) 10^3/ul Absolute Eos (auto) 0.1 (0-0.6) 10^3/ul Absolute Basos (auto) 0 (0-0.2) 10^3/ul Absolute Nucleated RBC 0 10^3/ul Nucleated RBC % 0.1 INR (Anticoag Therapy) 1.09 (0.89-1.11) APTT 37.0 H (26.0-36.3) seconds Result Diagrams: 05/18/16 21:35 05/18/16 21:35 Lab Statement: Any lab studies that have been ordered have been reviewed, and results considered in the medical decision making process. - Radiology CXR Radiology Interpretation Completed By: Radiologist - IMPRESSION: NO EVIDENCE FOR ACUTE DISEASE. - EKG 20:36 Cardiac Rate: NL - at 88 bpm EKG Rhythm: Sinus Rhythm EKG Interpretation: Flipped T waves in V1-V3, aVL, aVR Chest Pain Course/Dx - Course Assessment/Plan: DISCUSSED RESULTS WITH PATIENT. ADMIT HOSPITALIST STABLE. - Diagnoses Provider Diagnoses: Chest pain, Syncope - Provider Notifications Discussed Care Of Patient With: Dr. Temple (Hospitalist) at 23:15 - agrees to admit Discharge - Discharge Plan Condition: Stable Disposition: ADMITTED TO [facility] Referrals: Shanda Anglin MD [Primary Care Provider] - The documentation as recorded by the Marcus blanco Erika accurately reflects the service I personally performed and the decisions made by Bryant wolff William, MD.
[2016-05-18] MEDS ORDERED: NS 0.9% 1000 ML* 1,000 ML IV SCH (23:30)
[2016-05-18] MEDS: NS 0.9% 1000 ML* 1,000 ML IV SCH (23:33)
[2016-05-18] MEDS ORDERED: NS 0.9% w/ 20 Meq KCL 1000 ML* 1,000 ML IV SCH (23:45)
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
[2016-05-19] MEDS ORDERED: Acetaminophen TAB* 325 MG PO PRN (00:08)
[2016-05-19] MEDS ORDERED: Albuterol 2.5 MG/3 ML NEB.SOL* (0.083%) INH PRN (00:24)
[2016-05-19] MEDS ORDERED: Heparin DRIP 25,000 UNITS(*) 25,000 UNITS/500 ML BAG IVPB SCH (00:30)
[2016-05-19] MEDS ORDERED: Aspirin Low Dose CHEW TAB* 81 MG PO ONE (00:42)
[2016-05-19] MEDS ORDERED: ALPRAZolam TAB* 0.25 MG PO PRN (00:47)
[2016-05-19] MEDS: HYDROmorphone INJ* 1 MG/ML CARPUJECT SYRINGE IV PRN ×4 (01:42→14:40)
[2016-05-19] MEDS: NS 0.9% 1000 ML* 1,000 ML IV SCH ×2 (01:43→08:32)
[2016-05-19] MEDS: Heparin VIAL(*) 5000 UNITS/ML VIAL (FIVE THOUSAND) IV SCH ×2 (02:49→11:17)
[2016-05-19] MEDS: KCL 20 MEQ/100 ML IVPREMIX* 20 MEQ/100 ML BAG IV SCH ×5 (02:50→08:32)
[2016-05-19] MEDS: Albuterol 2.5 MG/3 ML NEB.SOL* (0.083%) INH SCH ×3 (04:25→13:53)
[2016-05-19 05:40] LABS: BUN/Creatinine Ratio 11.1 (8-20); Calcium 8.5 mg/dL (8.6-10.3); EGFR African American 96.3 (>60); EGFR Non-African American 74.8 (>60); Potassium 3.8 mmol/L (3.5-5.0)
[2016-05-19 05:46] LABS: Troponin I 0.11 ng/mL (<0.04)
[2016-05-19] MEDS ORDERED: Aspirin Low Dose CHEW TAB* 81 MG PO SCH (09:00)
[2016-05-19] MEDS ORDERED: Docusate CAP* 100 MG PO SCH (09:00)
[2016-05-19] MEDS ORDERED: Aspirin TAB* 325 MG PO SCH ×2 (09:00)
[2016-05-19] MEDS ORDERED: Clopidogrel TAB* 75 MG PO SCH (09:00)
[2016-05-19] MEDS ORDERED: Mouth Piece, Nicotine* 1 EACH CARTRIDGE INH PRN (10:58)
[2016-05-19] MEDS ORDERED: Nicotine Inhaler* 10 MG AMP INH PRN (10:58)
[2016-05-19] MEDS ORDERED: Nitroglycerin TAB 0.3 MG* 0.3 MG TAB SL PRN (13:05)
[2016-05-19] MEDS ORDERED: Metoprolol Succinate XL TAB* 50 MG PO SCH (14:00)
--- NOTE | 2016-05-19 15:10 | DCNOTE ---
Patient seen this morning and afternoon. Reports continued intermittent chest pain, worse with inspiration. No SOB, diaphoresis. On exam, RRR, s1 and s2 present, no m/g/r, abd soft, NTND, BS+, lungs CTA B/L, no w/r/r, no LE edema Appreciate consult from Dr. Dhaliwal. Does not feel this is cardiac pain and this does not indicate failure of patient's preference for medical management of ACS. Will discharge home with increased metoprolol and atorvastatin, will also rx prn nitro. Keep outpatient f/u with Dr. Flynn.
[2016-05-19 16:50] VITALS: BP 108/69
--- NOTE | 2016-05-19 19:35 | CONS ---
INTERVENTIONAL CARDIOLOGY CONSULT NOTE: DATE OF CONSULT: 05/19/16 PRIMARY CARE PHYSICIAN: Dr. Anglin. STUDIO HAND: Jose Roberto Flynn DO. HISTORY OF PRESENT ILLNESS: A 50-year-old woman admitted last week with lower abdominal pain and vaginal bleeding, with findings of non-ST elevation infarct, on enzymes. She now is readmitted with chest pain. See the prior consultation note by Dr. Flynn for cardiac details. Her stress imaging studies showed diagonal branch distribution ischemia. She has ACS by troponins, no EKG changes. Interestingly, her presentation was without chest pain. She complained of lower abdominal cramping pain and vaginal bleeding. She has had spotting intermittently, but much more so for the past month or so. 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 She has seen her resistor coater, is followed by him. Last week after discussion with Dr. Macias, she decided to opt for medical therapy. Interestingly, last week's admission was not associated with chest discomfort. She first started having chest pain yesterday morning when she awakened, she describes this as a pressure sensation in the center of her chest without radiation, it is worsened by deep breath and some movements, it has been unremitting for the past 24 hours, although it does seem to diminish with analgesics only to worsen as they wear off. However, she is quite clear that they have been continuous since yesterday morning, yet her troponins are decreasing. Whenever her lower abdominal discomfort cramping gets severe enough, she becomes lightheaded and then passes out. Her history is quite consistent with vasodepressor phenomenon, she has learned that assuming recumbency will prevent her from passing out. She is due to be seen in the pain clinic in the near future. Last week she was discharged with low-dose Toprol XL as well as Norvasc , Lipitor 40, Plavix 40, no ASPIRIN as she is allergic to it, and continued Lovenox in addition to her chronic meds. PAST MEDICAL HISTORY: 1. 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 2. History of DVT, left leg x2 on Lovenox and Plavix, follows with Dr. Guillen in Hematology. She does not think she has ever had a hypercoagulable workup. ALLERGIES: Numerous including ASPIRIN. FAMILY HISTORY: Positive for premature coronary artery disease. SOCIAL HISTORY: She is a smoker. 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 GI: No peptic ulcer disease or GI bleeding. 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 Remainder negative. PHYSICAL EXAM: She currently complains of mild precordial chest tightness worsened by pressure in the area of the central sternum and also worsened by taking a deep breath. Her blood pressure here 111/75, heart rate in the 70s. Her lungs are clear to percussion and auscultation, deep breathing is accompanied by precordial chest pressure exacerbation. JVP is normal. Carotids are normal. HEENT is unremarkable. Cardiac exam: Her chest wall is tender centrally, cannot feel the RV or apex, auscultation is normal without gallop, murmur, or rub. Heart sounds are normal. The abdomen is benign without bruits. Radial, femoral, and pedal pulses are palpable. She has no cyanosis, clubbing, or edema. DIAGNOSTIC STUDIES/LAB DATA: EKG shows poor R-wave progression without any evolution over the past week. Troponin 0.15, 0.12, 0.11. It was 2.29 on the . CBC and BMP are normal. IMPRESSION: Chest wall pain. Her current continuous chest discomfort for the past 24 hours in the face of dropping troponins, exacerbated by deep breathing and by precordial pressure are not consistent with acute coronary syndrome, are very suggestive of chest wall discomfort. She is reluctant to have invasive evaluation for her prior apparent acute coronary syndrome, so far she has not failed medical management as this is not a recurrence of acute coronary syndrome. I have increased her Lipitor to 80, increased her Toprol XL to 50 daily. I added p.r.n. nitroglycerin to her medical regimen to be continued after discharge. From my perspective, it is reasonable to continue with medical management in accordance with her wishes. She will follow with Dr. Flynn as an outpatient. As acute coronary syndrome has been ruled out, I think she can be discharged to outpatient followup. Her chest wall discomfort can be worked up as an outpatient if need be. CC: Dr. Anglin; [place]* [id number]/[facility] #: [id number] [facility]
[2016-05-20] MEDS ORDERED: Atorvastatin* 80 MG TAB PO ONE (00:25)
--- NOTE | 2016-05-20 08:43 | DS ---
DISCHARGE SUMMARY: DATE OF ADMISSION: 05/18/16 DATE OF DISCHARGE: 05/19/16 PRIMARY CARE PHYSICIAN: Dr. Anglin. PRINCIPAL DISCHARGE DIAGNOSIS: Chest pain. SECONDARY DIAGNOSES: 1. Recent NSTEMI. 2. Chronic pain. 3. Anxiety. 4. Depression. STUDIES DONE DURING HOSPITALIZATION: Chest x-ray, impression: No evidence for acute disease. DISCHARGE MEDICATION REGIMEN: 1. Atorvastatin 80 mg by mouth daily. 2. Metoprolol succinate 50 mg by mouth daily. 3. Nitroglycerin 0.4 mg sublingual every 5 minutes as needed for chest pain. 4. Tramadol 50 mg every 6 hours as needed for pain. 5. Gabapentin 400 mg by mouth every 4 hours. 6. Protonix 40 mg by mouth daily. 7. Seroquel 50 mg by mouth daily. 8. Venlafaxine 300 mg by mouth daily. 9. Amlodipine 5 mg by mouth daily. 10. Hydroxyzine 100 mg by mouth 3 times daily as needed for anxiety. 11. Plavix 75 mg by mouth daily. 12. Lovenox 80 mg subcu every 12 hours. HISTORY OF PRESENT ILLNESS AND HOSPITAL SUMMARY: Please see the full history and physical by Dr. Du Temple for full details. Briefly, Ms. Agosto is a 50-year- old female with a past medical history as above who was recently admitted in the hospital for NSTEMI, who presented to the hospital again with chest pain. The patient's troponins seem to be continuing to trend down from previous admission where she preferred to undergo medical management of her NSTEMI instead of cardiac catheterization. Cardiology was consulted and the patient was evaluated by Dr. Dhaliwal. After talking with the patient, he felt that this was most likely musculoskeletal pain and as her troponins did not bump again, it was felt that we could continue medical management, which the patient desired. Her metoprolol and atorvastatin were both increased and she will be discharged on p.r.n. nitroglycerin as well. The patient will follow up with her PCP, as well as with Dr. Flynn of cardiology. TIME SPENT: Total time spent on this discharge is 45 minutes. This is a summary of the hospitalization. Please see the full medical record for further details. CC: Dr. Anglin* [id number]/[facility] #: [id number] [facility]ITAL[facility]
== END 2016-05-19 18:16 | disposition home or self-care (01) ==
LOC: ED 20:32 → MEDTELE 05-19 00:06 → INTOOBSV 05-19 00:06
PROVIDERS: ADMIT Hospitalist; ATTEND Hospitalist
DX: R07.9 Chest pain, unspecified (principal); G89.29 Other chronic pain; F41.9 Anxiety disorder, unspecified; F32.9 Major depressive disorder, single episode, unspecified; Z79.01 Long term (current) use of anticoagulants; Z79.899 Other long term (current) drug therapy; Z88.0 Allergy status to penicillin; I10 Essential (primary) hypertension; M54.5 Low back pain; F17.200 Nicotine dependence, unspecified, uncomplicated; Z88.6 Allergy status to analgesic agent; Z86.718 Personal history of other venous thrombosis and embolism
CPT/HCPCS: 36415; 71010; 80048; 80053; 82550; 82553; 83690; 83735; 84443; 84484; 85025; 85610; 85730; 86140; 93005; 96365; 96366; 96375; 99284; 99406; A9270-GY; G0378; J1170; J1644; J2270; J2405; J3480

== ENCOUNTER 2016-05-22 09:52 | Emergency (ER) | payer OTHER ==
[2016-05-22] MEDS ORDERED: NS 0.9% 1000 ML* 1,000 ML IV ONE (09:57)
[2016-05-22 10:39] LABS: Hematocrit 38 % (35-47); Hemoglobin 12.6 g/dl (12.0-16.0); Mean Corpuscular HGB Conc 33 g/dl (31-36); Mean Corpuscular Hemoglobin 28 pg (27-31); Mean Corpuscular Volume 86 fL (80-97); Mean Platelet Volume 9 um3 (7.4-10.4); Red Blood Count 4.46 10^6/ul (4.0-5.4); Red Cell Distribution Width 17 % (10.5-15); White Blood Count 4.4 10^3/ul (3.5-10.8)
[2016-05-22 10:52] LABS: Troponin I 0.01 ng/mL (<0.04)
[2016-05-22 11:02] LABS: Albumin 3.7 g/dL (3.2-5.2); BUN/Creatinine Ratio 13.8 (8-20); Calcium 9.2 mg/dL (8.6-10.3); EGFR African American 141.5 (>60); Potassium 4.1 mmol/L (3.5-5.0); Total Bilirubin 0.3 mg/dL (0.2-1.0); Total Protein 6.7 g/dL (6.4-8.9)
[2016-05-22] MEDS ORDERED: oxyCODONE/Acetamin 5/325 MG* TAB PO ONE (13:34)
[2016-05-22 13:47] VITALS: BP 92/59
--- NOTE | 2016-05-22 14:30 | ED ---
Ramiro Sanchez Benjamin, mitaliibed for Garret Terry MD on 05/22/16 at 1331 . Progress - Progress Note Progress Note: Signout pt from Dr. Eugene. Pt was BIB EMS for having a Sz episode. Pt now reports having LLQ contraction like abdominal pain. Pt has a DVT at her left leg. Pt is on a blood thinner. Physical Exam: The patient is well-nourished in no acute distress and in no acute pain. The skin is warm and dry and skin color reflects adequate perfusion. HEENT: The head is normocephalic and atraumatic. The pupils are equal and reactive. The conjunctivae are clear and without drainage. Nares are patent and without drainage. Mouth reveals moist mucous membranes and the throat is without erythema and exudate. The external ears are intact. The ear canals are patent and without drainage. The tympanic membranes are intact. Neck is supple with full range of motion and non-tender. There are no carotid bruits. There is no neck vein distension. Respiratory: Chest is non-tender. Lungs are clear to auscultation and breath sounds are symmetrical and equal. Cardiovascular: Hear is regular rate and rhythm. There is no murmur or rub auscultated. There is no peripheral edema and pulses are symmetrical and equal. Abdomen: The abdomen is soft. Bilateral pelvic pain. There are normal bowel sounds heard in all four quadrants and there is no organomegaly palpated. Musculoskeletal: There is no back pain noted. Extremities are non-tender with full range of motion. There is good capillary refill. There is no peripheral edema or calf tenderness elicited. Neurological: Patient is alert and oriented to person, place and time. The patient has symmetrical motor strength in all four extremities. Cranial nerves are grossly intact. Deep tendon reflexes are symmetrical and equal in all four extremities. Psychiatric: The patient has an appropriate affect and does not exhibit any anxiety or depression. - EKG/XRAY/CT EKG: NSR, nonspecific ST T wave chg Comments: EKG taken at 0955. Course/Dx - Course Course Of Treatment: Pt was admitted 1 week ago for syncopal episode with elevated trop, but trop is now in normal range. Pt will taker her pain meds at home and will F/U with her PCP. - Diagnoses Provider Diagnoses: Chronic abdominal pain, Syncope The documentation as recorded by the Ramiro blanco Benjamin accurately reflects the service I personally performed and the decisions made by me, Garret Terry MD.
--- NOTE | 2016-06-16 20:17 | ED ---
Ramiro Sanchez Benjamin, scribed for Shirin Eugene MD on 05/22/16 at 1013 . Altered Mental Status - HPI Summary HPI Summary: 50yo female BIB EMS for a witnessed sz episode at home. Episode was witnessed by family members. Denies head injury. - History Of Current Complaint Stated Complaint: UNRESPONSIVE Time Seen by Provider: 05/22/16 09:57 Hx Obtained From: Patient, EMS Onset/Duration: Unknown, Resolved Timing: Intermittent Severity Initially: Mild Severity Currently: None Aggravating Factor(s): Nothing Alleviating Factor(s): Nothing Associated Signs And Symptoms: Positive: Negative - Allergies/Home Medications Allergies/Adverse Reactions: Allergies Allergy/AdvReac Type Severity Reaction Status Date / Time Aspirin Allergy Intermediate Hives Verified 05/22/16 10:02 Cyclobenzaprine Allergy Intermediate Difficulty Verified 05/22/16 10:02 [From Flexeril] Swallowing Ketorolac Tromethamine Allergy Intermediate Difficulty Verified 05/22/16 10:02 [From Toradol] Swallowing Clonazepam [From Klonopin] Allergy Mild Rash Verified 05/22/16 10:02 NSAIDs Allergy Mild Itching Verified 05/22/16 10:02 Penicillins [PCN] Allergy Mild Rash Verified 05/22/16 10:02 Topiramate [From Topamax] AdvReac Mild Headache Verified 05/22/16 10:02 Erythromycin AdvReac See Comment Verified 05/22/16 10:02 [place] Allergy Severe Swelling Uncoded 05/18/16 11:58 Of Face,Lips,& Throat lidoderm Allergy Mild Rash Uncoded 05/18/16 11:58 tums AdvReac Mild Dizziness Uncoded 05/19/16 00:49 PMH/Surg Hx/FS Hx/Imm Hx Endocrine/Hematology History: Reports: Hx Anticoagulant Therapy - lovenox, 4 months Denies: Hx Blood Disorders, Hx Blood Transfusions, Hx Bone Marrow Disease, Hx Diabetes, Hx Systemic Lupus Erythematosus, Hx Sickle Cell Disease, Hx Thyroid Disease, Hx Anemia, Hx Unexplained Bleeding Cardiovascular History: Reports: Hx Angina, Hx Deep Vein Thrombosis - 1993 left calf, Hx Syncope Denies: Hx Aneurysm, Hx Angioplasty, Hx Auto Implanted Cardiovert Defib, Hx Cardiac Arrest, Hx Cardiomegaly, Hx Congenital Heart Disease, Hx Congestive Heart Failure, Hx Coronary Artery Disease, Hx Embolism, Hx Hypercholesterolemia , Hx Hypotension, Hx Hypertension, Hx Myocardial Infarction, Hx Pacemaker/ICD, Hx Peripheral Vascular Disease, Hx Rheumatic Fever, Hx Valvular Heart Disease, Other Cardiovascular Problems/Disorders Respiratory History: Reports: Hx Pneumonia - 2016 Denies: Hx Asthma, Hx Chronic Bronchitis, Hx Chronic Obstructive Pulmonary Disease (COPD), Hx Cystic Fibrosis, Hx Lung Cancer, Hx Pleural Effusion, Hx Pulmonary Edema, Hx Pulmonary Embolism, Hx Seasonal Allergies, Hx Sleep Apnea, Other Respiratory Problems/Disorders GI History: Reports: Hx Gall Bladder Disease - taken out 2012, Hx Gastroesophageal Reflux Disease - 2015, Hx Gastrointestinal Bleed - lesions 2015 Denies: Hx Cirrhosis, Hx Crohn's Disease, Hx Diverticulosis, Hx Hiatal Hernia , Hx Irritable Bowel, Hx Jaundice, Hx Obstructive Bowel, Hx Ileostomy, Hx Pyloric Stenosis, Hx Ulcer, Other GI Disorders History: Denies: Hx Acute Renal Failure, Hx Benign Prostatic Hyperplasia, Hx Chronic Renal Failure, Hx Dialysis, Hx Kidney Infection, Hx Kidney Stones, Hx Renal Disease, Other Problems/Disorders Musculoskeletal History: Reports: Hx Back Problems - chronic back pain, T4-T5 fusion, Hx Fibromyalgia - 2005 Denies: Hx Arthritis, Hx Bursitis, Hx Congenital Bone Abnormalities, Hx Gout , Hx Orthopedic Injury, Hx Osteoporosis, Hx Scoliosis, Hx Tendonitis Sensory History: Reports: Hx Contacts or Glasses - Reading Denies: Hx Cataracts, Hx Eye Injury, Hx Eye Prosthesis, Hx Glaucoma, Hx Legally Blind, Hx Macular Degeneration, Hx Vision Problem, Hx Deafness, Hx Hearing Aid, Hx Hearing Problem, Other Sensory Impairments Opthamlomology History: Reports: Hx Contacts or Glasses - Reading Denies: Hx Cataracts, Hx Eye Injury, Hx Eye Prosthesis, Hx Glaucoma, Hx Legally Blind, Hx Macular Degeneration, Hx Vision Problem, Other Sensory Impairments Neurological History: Reports: Hx Dementia, Hx Migraine, Hx Seizures, Other Neuro Impairments/Disorders - prev back surg, bells palsy, chronic back pain - L4-5 spinal fusion 2009 Denies: Hx Developmental Delay, Hx Headaches, Hx Nerve Disease, Hx Spinal Cord Injury, Hx Transient Ischemic Attacks (TIA) Psychiatric History: Reports: Hx Anxiety, Hx Depression Denies: Hx Attention Deficit Hyperactivity Disorder, Hx Eating Disorder, Hx Panic Disorder, Hx Post Traumatic Stress Disorder, Hx Inpatient Treatment, Hx Community Mental Health Tx, Hx Schizophrenia, Hx Bipolar Disorder, Hx Suicide Attempt, Hx of Violent Episodes Against Others, Hx Substance Abuse - Surgical History Surgery Procedure, Year, and Place[place] [facility] [place] [facility] [place] - 2009 [place]. TUBAL LIGATION 1997. Gall bladder 2012 Hx Anesthesia Reactions: No - Immunization History Date of Tetanus Vaccine: 04/27/15 Date of Influenza Vaccine: None Infectious Disease History: No Infectious Disease History: Denies: Hx Clostridium Difficile, Hx Hepatitis, Hx Human Immunodeficiency Virus (HIV), Hx of Known/Suspected MRSA, Hx Shingles, Hx Tuberculosis, Hx Known/ Suspected VRE, Hx Known/Suspected VRSA, History Other Infectious Disease, Traveled Outside the in Last 30 Days - Family History Known Family History: Positive: Cardiac Disease, Hypertension, Diabetes, Seizure Disorder - paternal, maternal, Other Family History: Mother alive in 60s with Hx of gallbladder CA, DVT. Father alive in 60s with Hx of CAD - Social History Alcohol Use: Occasionally Hx Substance Use: No Substance Use Type: Reports: None Hx Tobacco Use: Yes Smoking Status (MU): Light Every Day Tobacco Smoker Type: Cigarettes Amount Used/How Often: 4 Cigarettes/DAY Have You Smoked in the Last Year: Yes Review of Systems Constitutional: Negative Eyes: Negative ENT: Negative Cardiovascular: Negative Respiratory: Negative Gastrointestinal: Negative Genitourinary: Negative Musculoskeletal: Negative Skin: Negative Neurological: Other - sz Psychological: Normal All Other Systems Reviewed And Are Negative: Yes Physical Exam Triage Information Reviewed: Yes Vital Signs On Initial Exam: Initial Vitals Temp Pulse Resp BP Pulse Ox 97.6 F 72 17 98/65 99 05/22/16 09:55 05/22/16 09:55 05/22/16 09:55 05/22/16 09:55 05/22/16 09:55 Vital Signs Reviewed: Yes Appearance: Positive: Well-Appearing, No Pain Distress, Well-Nourished Skin: Positive: Warm, Skin Color Reflects Adequate Perfusion, Dry Eyes: Positive: WILLIAMS - 3mm ENT: Positive: Hearing grossly normal, Pharynx normal, TMs normal Neck: Positive: Supple, Nontender Respiratory/Lung Sounds: Positive: Clear to Auscultation, Breath Sounds Present Cardiovascular: Positive: RRR Abdomen Description: Positive: Nontender, No Organomegaly, Soft Bowel Sounds: Positive: Present Musculoskeletal: Positive: Strength/ROM Intact Neurological: Positive: Sensory/Motor Intact, Alert, Oriented to Person Place, Time, CN Intact II-III, Reflexes Intact Psychiatric: Positive: Affect/Mood Appropriate Diagnostics - Vital Signs Vital Signs Temp Pulse Resp BP Pulse Ox 05/22/16 09:55 97.6 F 72 17 98/65 99 - Laboratory Lab Results: Lab Results 05/22/16 05/22/16 Range/Units 10:25 10:25 WBC 4.4 (3.5-10.8) 10^3/ul RBC 4.46 (4.0-5.4) 10^6/ul Hgb 12.6 (12.0-16.0) g/dl Hct 38 (35-47) % MCV 86 (80-97) fL MCH 28 (27-31) pg MCHC 33 (31-36) g/dl RDW 17 H (10.5-15) % Plt Count 251 (150-450) 10^3/ul MPV 9 (7.4-10.4) um3 Neut % (Auto) 73.0 (38-83) % Lymph % (Auto) 17.4 L (25-47) % [place] % (Auto) 7.1 (1-9) % Eos % (Auto) 1.5 (0-6) % Baso % (Auto) 1.0 (0-2) % Absolute Neuts (auto) 3.2 (1.5-7.7) 10^3/ul Absolute Lymphs (auto) 0.8 L (1.0-4.8) 10^3/ul Absolute Monos (auto) 0.3 (0-0.8) 10^3/ul Absolute Eos (auto) 0.1 (0-0.6) 10^3/ul Absolute Basos (auto) 0 (0-0.2) 10^3/ul Absolute Nucleated RBC 0 10^3/ul Nucleated RBC % 0 Sodium 137 (133-145) mmol/L Potassium 4.1 (3.5-5.0) mmol/L Chloride 107 (101-111) mmol/L Carbon Dioxide 22 (22-32) mmol/L Anion Gap 8 (2-11) mmol/L BUN 8 (6-24) mg/dL Creatinine 0.58 (0.51-0.95) mg/dL Est GFR ( Amer) 141.5 (>60) Est GFR (Non-Af Amer) 110.0 (>60) BUN/Creatinine Ratio 13.8 (8-20) Glucose 115 H (70-100) mg/dL Calcium 9.2 (8.6-10.3) mg/dL Total Bilirubin 0.30 (0.2-1.0) mg/dL AST 13 (13-39) U/L ALT 13 (7-52) U/L Alkaline Phosphatase 80 (34-104) U/L Troponin I 0.01 (<0.04) ng/mL Total Protein 6.7 (6.4-8.9) g/dL Albumin 3.7 (3.2-5.2) g/dL Globulin 3.0 (2-4) g/dL Albumin/Globulin Ratio 1.2 (1-3) Result Diagrams: 05/22/16 10:25 05/22/16 10:25 Lab Statement: Any lab studies that have been ordered have been reviewed, and results considered in the medical decision making process. Altered Mental Statu Course/Dx - Diagnoses Discharge Diagnoses: Chronic abdominal pain, Syncope Discharge - Discharge Plan Condition: Stable Disposition: HOME Patient Education Materials: Syncope (ED), Abdominal Pain (ED) Referrals: Shanda Anglin MD [Primary Care Provider] - The documentation as recorded by the Ramiro blanco Benjamin accurately reflects the service I personally performed and the decisions made by Jabier wolff Justine, MD.
== END 2016-05-22 13:45 | disposition home or self-care (01) ==
LOC: ED 09:52
DX: R10.32 Left lower quadrant pain (principal); G89.29 Other chronic pain; R55 Syncope and collapse; Z88.0 Allergy status to penicillin; Z88.6 Allergy status to analgesic agent
CPT/HCPCS: 36415; 80053; 84484; 85025; 93005; 96360; 99283; A9270-GY

== ENCOUNTER 2016-05-22 17:26 | Observation (INO) | payer OTHER ==
[2016-05-22] MEDS ORDERED: NS 0.9% 1000 ML* 1,000 ML IV ONE (17:49)
--- NOTE | 2016-05-22 18:08 | ED ---
Syncope/Near Syncope - HPI Summary HPI Summary: The patient is a 50 year old female presenting to the ED for syncopal event while shopping at [email or web address]. Admits to current headache from head injury on left side of head. Also complains of current LLQ abdominal pain. Denies fever , chills, diaphoresis, neck or back pain, chest pain, cough, shortness of breath , hemoptysis, nausea, vomiting, diarrhea, dysuria, change in voiding, hematuria. Admits to bruising on lower abdomen from Lovenox injections for history of LE DVT. Additional history of seizures, CAD without prior stent, GERD , PUD, chronic back pain s/p lumbar surgery, fibromyalgia. SH: Current smoker. Review of medical records from earlier visit today demonstrates unremarkable CBC , CMP, troponin of 0.01. No urinalysis or imaging obtained. - History Of Current Complaint Chief Complaint: EDSyncope Time Seen by Provider: 05/22/16 17:35 - Allergies/Home Medications Allergies/Adverse Reactions: Allergies Allergy/AdvReac Type Severity Reaction Status Date / Time Aspirin Allergy Intermediate Hives Verified 05/22/16 10:02 Cyclobenzaprine Allergy Intermediate Difficulty Verified 05/22/16 10:02 [From Flexeril] Swallowing Ketorolac Tromethamine Allergy Intermediate Difficulty Verified 05/22/16 10:02 [From Toradol] Swallowing Clonazepam [From Klonopin] Allergy Mild Rash Verified 05/22/16 10:02 NSAIDs Allergy Mild Itching Verified 05/22/16 10:02 Penicillins [PCN] Allergy Mild Rash Verified 05/22/16 10:02 Topiramate [From Topamax] AdvReac Mild Headache Verified 05/22/16 10:02 Erythromycin AdvReac See Comment Verified 05/22/16 10:02 [facility] Allergy Severe Swelling Uncoded 05/18/16 11:58 Of Face,Lips,& Throat lidoderm Allergy Mild Rash Uncoded 05/18/16 11:58 tums AdvReac Mild Dizziness Uncoded 05/19/16 00:49 PMH/Surg Hx/FS Hx/Imm Hx Endocrine/Hematology History: Reports: Hx Anticoagulant Therapy - lovenox, 4 months Denies: Hx Blood Disorders, Hx Blood Transfusions, Hx Bone Marrow Disease, Hx Diabetes, Hx Systemic Lupus Erythematosus, Hx Sickle Cell Disease, Hx Thyroid Disease, Hx Anemia, Hx Unexplained Bleeding Cardiovascular History: Reports: Hx Angina, Hx Deep Vein Thrombosis - 1993 left calf, Hx Syncope Denies: Hx Aneurysm, Hx Angioplasty, Hx Auto Implanted Cardiovert Defib, Hx Cardiac Arrest, Hx Cardiomegaly, Hx Congenital Heart Disease, Hx Congestive Heart Failure, Hx Coronary Artery Disease, Hx Embolism, Hx Hypercholesterolemia , Hx Hypotension, Hx Hypertension, Hx Myocardial Infarction, Hx Pacemaker/ICD, Hx Peripheral Vascular Disease, Hx Rheumatic Fever, Hx Valvular Heart Disease, Other Cardiovascular Problems/Disorders Respiratory History: Reports: Hx Pneumonia - 2015 Denies: Hx Asthma, Hx Chronic Bronchitis, Hx Chronic Obstructive Pulmonary Disease (COPD), Hx Cystic Fibrosis, Hx Lung Cancer, Hx Pleural Effusion, Hx Pulmonary Edema, Hx Pulmonary Embolism, Hx Seasonal Allergies, Hx Sleep Apnea, Other Respiratory Problems/Disorders GI History: Reports: Hx Gall Bladder Disease - taken out 2012, Hx Gastroesophageal Reflux Disease - 2015, Hx Gastrointestinal Bleed - lesions 2015 Denies: Hx Cirrhosis, Hx Crohn's Disease, Hx Diverticulosis, Hx Hiatal Hernia , Hx Irritable Bowel, Hx Jaundice, Hx Obstructive Bowel, Hx Ileostomy, Hx Pyloric Stenosis, Hx Ulcer, Other GI Disorders History: Denies: Hx Acute Renal Failure, Hx Benign Prostatic Hyperplasia, Hx Chronic Renal Failure, Hx Dialysis, Hx Kidney Infection, Hx Kidney Stones, Hx Renal Disease, Other Problems/Disorders Musculoskeletal History: Reports: Hx Back Problems - chronic back pain, T4-T5 fusion, Hx Fibromyalgia - 2005 Denies: Hx Arthritis, Hx Bursitis, Hx Congenital Bone Abnormalities, Hx Gout , Hx Orthopedic Injury, Hx Osteoporosis, Hx Scoliosis, Hx Tendonitis Sensory History: Reports: Hx Contacts or Glasses - Reading Denies: Hx Cataracts, Hx Eye Injury, Hx Eye Prosthesis, Hx Glaucoma, Hx Legally Blind, Hx Macular Degeneration, Hx Vision Problem, Hx Deafness, Hx Hearing Aid, Hx Hearing Problem, Other Sensory Impairments Opthamlomology History: Reports: Hx Contacts or Glasses - Reading Denies: Hx Cataracts, Hx Eye Injury, Hx Eye Prosthesis, Hx Glaucoma, Hx Legally Blind, Hx Macular Degeneration, Hx Vision Problem, Other Sensory Impairments Neurological History: Reports: Hx Migraine, Hx Seizures, Other Neuro Impairments /Disorders - prev back surg, bells palsy, chronic back pain - L4-5 spinal fusion 2009 Denies: Hx Developmental Delay, Hx Headaches, Hx Nerve Disease, Hx Spinal Cord Injury, Hx Transient Ischemic Attacks (TIA) Psychiatric History: Reports: Hx Anxiety, Hx Depression Denies: Hx Attention Deficit Hyperactivity Disorder, Hx Eating Disorder, Hx Panic Disorder, Hx Post Traumatic Stress Disorder, Hx Inpatient Treatment, Hx Community Mental Health Tx, Hx Schizophrenia, Hx Bipolar Disorder, Hx Suicide Attempt, Hx of Violent Episodes Against Others, Hx Substance Abuse - Surgical History Surgery Procedure, Year, and Place: D&C-1987 [facility] [place]. - 1997 [facility] [place]. lumbar FUSION - 2009 [place]. TUBAL LIGATION 1997. Gall bladder 2012 Hx Anesthesia Reactions: No - Immunization History Date of Tetanus Vaccine: 04/27/15 Date of Influenza Vaccine: None Infectious Disease History: No Infectious Disease History: Denies: Hx Clostridium Difficile, Hx Hepatitis, Hx Human Immunodeficiency Virus (HIV), Hx of Known/Suspected MRSA, Hx Shingles, Hx Tuberculosis, Hx Known/ Suspected VRE, Hx Known/Suspected VRSA, History Other Infectious Disease, Traveled Outside the in Last 30 Days - Family History Known Family History: Positive: Cardiac Disease, Hypertension, Diabetes, Seizure Disorder - paternal, maternal, Other Family History: Mother alive in 60s with Hx of gallbladder CA, DVT. Father alive in 60s with Hx of CAD - Social History Alcohol Use: Occasionally Hx Substance Use: No Substance Use Type: Reports: None Hx Tobacco Use: Yes Smoking Status (MU): Light Every Day Tobacco Smoker Type: Cigarettes Amount Used/How Often: 4 Cigarettes/DAY Have You Smoked in the Last Year: Yes Review of Systems Constitutional: Negative Eyes: Negative ENT: Negative Positive: Other - syncope Respiratory: Negative Positive: Abdominal Pain Genitourinary: Negative Positive: Arthralgia - left hip and knee Positive: Other - abrasion left knee Positive: Headache Psychological: Normal All Other Systems Reviewed And Are Negative: Yes Physical Exam Triage Information Reviewed: Yes Vital Signs On Initial Exam: Initial Vitals Temp Pulse Resp BP Pulse Ox 97.8 F 69 16 82/71 99 05/22/16 17:38 05/22/16 17:38 05/22/16 17:38 05/22/16 17:38 05/22/16 17:38 Vital Signs Reviewed: Yes Appearance: Positive: Well-Appearing, Pain Distress - mild pain, Obese - overweight Skin: Positive: Warm, Skin Color Reflects Adequate Perfusion, Dry, Purpura - Inferior left abdomen secondary to lovenox injections., Other - abrasion left anterior knee Head/Face: Positive: Scalp - tenderness left scalp. Negative: TMJ Tenderness Eyes: Positive: Normal, EOMI, WILLIAMS, Conjunctiva Clear ENT: Positive: Normal ENT inspection, Hearing grossly normal, Pharynx normal, TMs normal, Other - no raccoon or bonilla sign Neck: Positive: Supple, Nontender, No Lymphadenopathy Respiratory/Lung Sounds: Positive: Clear to Auscultation, Breath Sounds Present. Negative: Decreased Breath Sounds, Rales, Rhonchi, Wheezes, Unable to speak in full sentences, Fatigue Cardiovascular: Positive: Normal, RRR, Pulses are Symmetrical in both Upper and Lower Extremities, S1, S2. Negative: Murmur, Rub, Leg Edema Left, Leg Edema Right Abdomen Description: Positive: No Organomegaly, Soft, Other: - moderate tenderness LLQ > suprapubic; rubbery mobile nontender nodule just left of inferior midline without overlying erythema or warmth.. Negative: CVA Tenderness (R), CVA Tenderness (L), Distended, Guarding, Hernia @, Hepatomegaly , McBurney's Point Tenderness, Peritoneal Signs, Pulsatile Mass, Splenomegaly Bowel Sounds: Positive: Present Musculoskeletal: Positive: Strength/ROM Intact, Pain @ - mild tendernessleft hip without deformity, shortening or rotation; mild left patellar tenderness without deformity Neurological: Positive: Normal, Sensory/Motor Intact, Alert, Oriented to Person Place, Time, CN Intact II-III, Reflexes Intact - brachioradialis and patellar 2 + bilaterally, NV Bundle Intact Distally, Babinski Bilateral - downward, Finger to Nose - normal, Facial Symmetry, Speech Normal. Negative: Receptive Aphasia, Expressive Aphasia, Facial Droop, Slurred Speech, Pronator Drift Present Psychiatric: Positive: Normal AVPU Assessment: Alert Diagnostics - Vital Signs Vital Signs Temp Pulse Resp BP Pulse Ox 05/22/16 17:38 97.8 F 69 16 82/71 99 - Laboratory Lab Statement: Any lab studies that have been ordered have been reviewed, and results considered in the medical decision making process. Re-Evaluation - Re-Evaluation First Eval Re-Evaluation Time: 19:54 Change: Improved Comment: Normalized BP in supine position. Reports current 7/10 pain. RN still attempting to gain IV access. Awaiting ICU nurse training for ultrasound guided placement to attempt. Second Eval Re-Evaluation Time: 21:30 Change: Unchanged Comment: Per discussion with attending, Dr. Garcia, recommended external jugular venous access. Advised against femoral stick or central access as patient is on Lovenox. Course/Dx Assessment/Plan: The patient is a 50 female presenting to ED for recurrent syncope and initial hypotension. Treated with IVF with normalization of BP. EKG NSR without acute ischemia (computer read as Atrial Fibrillation but has normal P waves and regular rate/rhythm). Repeat troponin 0.01 which is unchanged from this morning. CT Brain without acute intracranial abnormality. CT cervical spine with disc herniation C5-C6 and DDD without acute fracture. CT Ab/Pelv with hiatal hernia without acute intraabdominal process. Xray of left hip/ pelvis and left knee without acute fracture. Urinalysis with trace WBC and epithelial cells without acute infectious process. Clinical impression of syncope, hypotension, head injury, contusion, chronic abdominal pain. Given two episodes of syncopal events questionable for seizures, patient will be admitted to [facility] for further evaluation and management. Admission accepted by Dr. Rebolledo. - Diagnoses Provider Diagnoses: Hypotension, Syncope, Head injury, Contusion, Chronic abdominal pain, History of seizure Discharge - Discharge Plan Condition: Stable Disposition: ADMITTED TO [facility]
--- NOTE | 2016-05-22 19:07 | RAD ---
INDICATION: Fell while shopping COMPARISON: None TECHNIQUE: AP, crosstable lateral, and oblique views were obtained. FINDINGS: The bony structures, joint spaces, and soft tissues are normal for age. IMPRESSION: NEGATIVE EXAMINATION.
--- NOTE | 2016-05-22 19:08 | RAD ---
INDICATION: Fall while shopping. Hip pain COMPARISON: None TECHNIQUE: An AP view of the pelvis and AP views of the hip in neutral and abducted position were obtained FINDINGS: Bones: There are no acute bony findings. There is lumbar fusion at L5-S1 with decompression. Joint spaces: The hips articulate normally. The joint spaces are preserved. SI joints/symphysis: The SI joints and symphysis are intact. Other: There is left iliac stenting. IMPRESSION: NO ACUTE FRACTURE
[2016-05-22] MEDS ORDERED: Iohexol 300* (CONTRAST) 10 ML SDV IV ONE (19:43)
[2016-05-22] MEDS ORDERED: traMADol TAB* 50 MG PO ONE (19:54)
[2016-05-22 20:33] LABS: Urine Bacteria Absent (Absent); Urine Bilirubin Negative (Negative); Urine Glucose Negative (Negative); Urine Nitrite Negative (Negative)
--- NOTE | 2016-05-22 21:10 | RAD ---
INDICATION: Syncope. Intracranial injury. COMPARISON: CT brain 05/14/2016 TECHNIQUE: Noncontrast axial source images were acquired from the skull base to the vertex. FINDINGS: Ventricles/sulci: The ventricles and cisterns are normal in size and configuration for age. Brain parenchyma: There is no focal parenchymal finding, evidence of intracranial mass, or intracranial mass effect. Intracranial hemorrhage:None. Extra-axial spaces: There are no abnormal extra axial fluid collections or evidence of extra-axial mass. Calvarium: There is no calvarial fracture or other calvarial abnormality. Scalp: There is no evidence of scalp or extracalvarial soft tissue abnormality. Paranasal sinuses/mastoid: The paranasal sinuses and mastoid air cells are clear. Other: None. IMPRESSION: NEGATIVE EXAMINATION, UNCHANGED FROM 05/14/2016
--- NOTE | 2016-05-22 21:10 | RAD ---
INDICATION: Fall. Possible neck injury COMPARISON: CT cervical spine 05/16/2015 TECHNIQUE: Noncontrast axial source images was performed from the skull base to the thoracic inlet. Coronal and and sagittal reformatted images were generated. FINDINGS: Vertebrae: There is no fracture or acute focal bony lesion. There are arthritic changes about C6-C7 with endplate sclerosis and posterior spondylitic ridge formation. Alignment: The craniocervical junction appears normal. The cervical vertebrae are normally aligned. Central Canal: Mild decrease in the AP diameter canal at C5-C6 produced by a broad-based central disc herniation. This appears little changed. At C6-C7 there is posterior spondylitic ridge formation without significant canal compromise. There are no other significant CT abnormalities of the central canal or foramina. MR imaging is a more sensitive method to evaluate the canal and foramina. Intervertebral disc spaces: Mild narrowing about C6-C7. The remaining disc spaces are maintained. Brain: The visualized brain appears unremarkable. Soft tissues: The visualized soft tissue elements of the neck are unremarkable. The prevertebral soft tissues appear normal. The lung apices are clear. IMPRESSION: NO ACUTE CT FINDINGS. BROAD-BASED CENTRAL DISC HERNIATION AT C5-C6. DEGENERATIVE DISC DISEASE C6-C7.
[2016-05-23] MEDS ORDERED: traMADol TAB* 50 MG PO ONE (01:03)
[2016-05-23] MEDS ORDERED: HYDROcodone/ACETAMIN 5-325 MG* 1 TAB PO ONE ×2 (01:04→04:16)
[2016-05-23] MEDS ORDERED: Nitroglycerin TAB 0.4 MG* 0.4 MG TAB SL PRN (04:38)
[2016-05-23] MEDS ORDERED: hydrOXYzine HCL TAB* 50 MG PO PRN (04:38)
[2016-05-23] MEDS ORDERED: Acetaminophen TAB* 325 MG PO PRN (04:40)
[2016-05-23] MEDS ORDERED: Ondansetron INJ* 2 MG/ML VIAL IV PRN (04:40)
[2016-05-23] MEDS: Gabapentin CAP(*) 400 MG PO SCH ×5 (06:14→22:27)
[2016-05-23] MEDS: Enoxaparin(*) 80 MG/0.8 ML SYR SUBCUT SCH ×2 (06:15→18:05)
[2016-05-23] MEDS: traMADol TAB* 50 MG PO PRN ×3 (06:59→22:29)
--- NOTE | 2016-05-23 07:41 | RAD ---
CLINICAL HISTORY: Left lower quadrant tenderness COMPARISON: 05/14/2016 TECHNIQUE: Multiple contiguous axial CT scans were obtained of the abdomen and pelvis after the administration of intravenous contrast. Coronal and sagittal multiplanar reformations are submitted for review. Oral contrast was administered. Delayed images were obtained through the abdomen FINDINGS: LUNG BASES: The lung bases are clear. LIVER: The liver is normal in shape, size, contour, and attenuation. BILE DUCTS: There is no intrahepatic or extrahepatic biliary dilatation. GALLBLADDER: The gallbladder is not visualized. Surgical clips are noted in the gallbladder fossa. PANCREAS: The pancreas is normal, without mass or ductal dilatation. SPLEEN: Normal in size and appearance. UPPER GI TRACT: Evaluation of the gastrointestinal tract is limited by incomplete gastric distention. There is a small to moderate sliding hiatal hernia. SMALL BOWEL AND MESENTERY: The small bowel is normal in contour, course, and caliber. There is no obstruction or dilatation. COLON: The colon is normal in contour, course, caliber. There is no pericolonic inflammatory change. ADRENALS: Normal bilaterally. KIDNEYS: The kidneys are normal in shape, size, contour, and axis. There is no hydronephrosis or nephrolithiasis. BLADDER: The bladder is smooth in contour. PELVIC ORGANS: The uterus and adnexa are grossly normal for technique. AORTA: The aorta is normal. IVC: A left common iliac vein stent is noted. LYMPH NODES: There is no lymphadenopathy by size criteria. ABDOMINAL WALL: There are small hematomas along the anterior subcutaneous fat suggestive of the sequela of subcutaneous injection BONES AND SOFT TISSUES: There is grade 1 anterolisthesis of L5 on S1. There are bilateral pedicle screws and rods at L5 and S1. A laminectomy defect is noted. OTHER: None IMPRESSION: 1. HIATAL HERNIA. 2. STATUS POST CHOLECYSTECTOMY. 3. NO ACUTE CT PATHOLOGY OF THE VISUALIZED ABDOMEN OR PELVIS.
[2016-05-23] MEDS: HYDROmorphone INJ* 1 MG/ML CARPUJECT SYRINGE IV SLOW PU PRN ×3 (09:43→18:05)
[2016-05-23] MEDS: QUEtiapine TAB* 25 MG PO SCH (09:48)
[2016-05-23] MEDS: Venlafaxine EXT RELEASE CAP* 75 MG PO SCH (09:48)
[2016-05-23] MEDS: Clopidogrel TAB* 75 MG PO SCH (09:48)
[2016-05-23] MEDS: Pantoprazole TAB (NF) 40 MG TAB PO SCH (09:49)
[2016-05-23] MEDS: amLODIPine TAB* 5 MG PO SCH (09:49)
[2016-05-23] MEDS: Metoprolol Succinate XL TAB* 50 MG PO SCH (09:49)
[2016-05-23] MEDS: Nicotine PATCH 21 MG/24 HR* PATCH TRANSDERM SCH (15:10)
[2016-05-23] MEDS ORDERED: Atorvastatin* 80 MG TAB PO SCH (17:00)
--- NOTE | 2016-05-23 18:09 | PN ---
Hospitalist Progress Note HOSPITALIST ADDENDUM Patient seen and examined at bedside. Complex history reviewed. Suspect her syncopal episodes likely represent vasovagal syncope, but I'm concerned with other arrhythmias in the setting of CAD. Will continue to monitor on Telemetry and request Cardiology evaluation. CVS: normal S1 and S2, RRR. Chest: BS+ bilaterally with no added sounds.
[2016-05-23] MEDS ORDERED: Nicotine Inhaler* 10 MG AMP INH PRN (19:35)
[2016-05-23] MEDS ORDERED: Mouth Piece, Nicotine* 1 EACH CARTRIDGE INH PRN (19:35)
[2016-05-23] MEDS ORDERED: Nicotine Patch Removal NOTE FOLLOW UP SCH (21:00)
--- NOTE | 2016-05-23 23:21 | CONS ---
CC: Jose Roberto Flynn DO; Shahzad Guillen MD CONSULTATION REPORT: DATE OF CONSULTATION: 05/23/16 REFERRING PHYSICIAN: Marlee Quiroz MD. REASON FOR CARDIOLOGY CONSULTATION: Syncope with abnormal stress test. History: Ms. Agosto is a pleasant 50-year-old lady with a history of vasovagal syncope who has had several admissions to [facility] recently with syncope. The patient states that yesterday she was buying groceries and had syncope at the grocery store while being in pain, which is typical for her. An ambulance was called and she apparently spontaneously resumed consciousness. She was brought to the hospital and admitted. She denies any chest pain. The patient has had several admissions recently for vasovagal syncope. She has been seen by Interventional Cardiology and felt not to require cardiac catheterization including on 05/19/16. 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 Guillen in Hematology. She had a cardiac chemical nuclear stress test on 05/16/16, where it was reported that she had moderate sized ischemic defect of the anterior wall which was intermediate risk. I reviewed the images myself and feel that there is more likely a fixed defect likely related to breast artifact including after review of attenuation correction images. I feel this is a low risk stress test with no definite evidence of ischemia nor infarction. Left ventricular ejection fraction reported calculated at 57% during stress. The patient had a transthoracic echocardiogram completed 05/14/16, which showed prominent septal knuckle with left ventricular ejection fraction of 55% to 60%, no WMA with no significant pericardial effusion. The patient also has a history of chronic back pain, anxiety, depression. The patient notes that for 19 years, she has fainted on average 3 times per week because of chronic pain in her back post fall in the past that has not changed recently. PAST SURGICAL HISTORY: Include D and C, , lumbar fusion with back pain for 19 years after a fall, tubal ligation, cholecystectomy. OUTPATIENT MEDICATIONS: 1. Protonix 40 mg once a day. 2. Venlafaxine 300 mg once a day. 3. Hydroxyzine 100 mg p.o. t.i.d. p.r.n. 4. Plavix 75 mg once a day. 5. Quetiapine 50 mg once a day. 6. Norvasc 5 mg once a day. 7. Lovenox 80 mg subcu q.12 hours. 8. Gabapentin 400 mg p.o. q.4 hours. 9. Lipitor 80 mg once a day. 10. Toprol-XL 50 mg once a day. 11. Tramadol 50 mg p.r.n. ALLERGIES: To medications listed as: 1. ASPIRIN. 2. CYCLOBENZAPRINE. 3. KETOROLAC. 4. TROMETHAMINE. 5. PENICILLIN. 6. TORADOL. 7. NSAIDS. 8. FLEXERIL. 9. TOPAMAX. 10. TRAMADOL. 11. ERYTHROMYCIN. 12. BURNS PAIUTE. 13. TUMS. 14. LIDODERM. The patient denies shrimp, seafood, or dye allergy. FAMILY HISTORY: Her father has had 3 heart attacks, beginning at the age of 35. He is currently 71. Her mother has had a stroke. Her father has diabetes. Her maternal grandmother had cancer. SOCIAL HISTORY: She quit smoking cigarettes recently but has smoked off and on for 16 years half pack per day. She does not abuse alcohol nor use illicit drugs. She is single and lives with her boyfriend of 30 years. 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 She is not a high school graduate. She is not able to do regular exercise because of pain in her left lower extremity post DVT and iliac stent. REVIEW OF SYSTEMS: The patient denies personal history of stroke cancer. She has had some vaginal bleeding recently. She denies blood in her stools, bleeding stomach ulcers. She has had cholecystectomy. She denies asthma. She denies emphysema. She has a history of pneumonia, now requiring hospitalization. She has a history of obstructive sleep apnea but is not on treatment for that. She denies diabetes, hypertension, prior mild congestive heart failure, cardiac surgery, cardiac murmurs, palpitations. The patient states that she has fainted for 19 years. The patient has a history of anxiety and depression. She denies lupus, psoriasis. She has a history of seizures with last one reported yesterday. She denies Parkinson disease and myasthenia gravis. She has a history of hypothyroidism but denies current thyroid problems. She also denies kidney problems, liver problems, pulmonary emboli, deep venous thrombosis, peripheral arterial disease. She has left ankle edema, post clot. She has a history of GERD with occasional heartburn. All other review of systems are negative except as described above. PHYSICAL EXAMINATION: Height 5 feet 4 inches, weight 171 pounds, temperature 98.2 degrees Fahrenheit, pulse is 16, blood pressure is 107/63, O2 saturation 98 %. On general exam, she is a pleasant lady in no acute distress. HEENT exam shows the cranium is normocephalic and atraumatic. She has dry mucosal membranes. Neck veins are not distended. There are no carotid bruits. Visible skin warm and perfused. Affect appropriate. She appears oriented. No significant kyphoscoliosis on back exam. Lungs are clear to auscultation. No wheezes, no rales. Cardiac Exam: S1, S2. Regular rate. No significant murmurs, rubs, or gallops. PMI is nondisplaced. Abdomen is soft, nondistended , appears benign. Extremities with trivial peripheral edema, more prominent in the left ankle. Pulses appear grossly intact. IMAGING: A 12-lead EKG reviewed from 05/22/16 at 1808 which shows normal sinus rhythm at 62 beats per minute, and appears to be fairly benign with baseline artifact. LABORATORY DATA: INR 1.04. White blood cell count 4.4, hematocrit 38, platelet count 251. Sodium 136, potassium 4.1, chloride 107, bicarbonate 22, BUN 8, creatinine 2.0, glucose 115, ALT 13, troponin 0.01. TSH was 1.84 on . IMPRESSION: Ms. Agosto is a pleasant 50-year-old woman with longstanding history of chronic stable vasovagal syncope. She has also been diagnosed with noncardiac chest pain previously. While her stress test recently was interpreted by the radiologist as demonstrating a moderate anterior ischemic defect, I feel that is likely artifact, especially after review of the attenuated corrected images and I feel that this is a low risk study with no definite evidence of ischemia nor infarction including after review of the attenuation corrected images and her contemporaneous echocardiogram. Her symptoms of syncope do not appear to be ischemic in etiology. RECOMMENDATIONS: There is no indication for cardiac catheterization at this time. As an outpatient, could consider weaning off or discontinuing Norvasc and increasing the Toprol XL further as per her primary hyster driver, as it is felt that it may help to blunt further the afferent limb of the Bezold-Jarisch reflex , which is felt etiologic in vasovagal syncope. Obviously, pain control would be very helpful as well as continued hydration to blunt her vasovagal syncopal events. We do note that the patient had septal knuckle on her echocardiogram findings and that could make her more preload dependent based on that physiology if she were volume depleted. As I do not feel strongly that the patient has CAD, I do not believe she requires an antiplatelet agent. At this time, I do not feel further cardiac monitoring is required. The patient may follow up with her usual hyster driver, Dr. Flynn, with whom followup is apparently being scheduled. Outpatient vaginal bleeding workup as per PCP. Would recommend treatment of obstructive sleep apnea, which the patient has apparently been diagnosed with but is not being treated. Long-term safety monitoring of continued use of Plavix and Lovenox in a patient with recurrent syncope as per her prescribing physicians. Other management as per the Hospital Medicine service, and I have discussed the case with Dr. Marlee Quiroz. Many thanks for this cardiac consultation opportunity. Please do not hesitate to contact me if you have any questions or concerns regarding the patient's cardiovascular consultative care. [id number]/[facility]PS #: [id number] MTDD
[2016-05-24] MEDS: HYDROmorphone INJ* 1 MG/ML CARPUJECT SYRINGE IV SLOW PU PRN ×2 (00:02→04:08)
[2016-05-24] MEDS: Gabapentin CAP(*) 400 MG PO SCH ×3 (02:31→09:56)
[2016-05-24] MEDS: Enoxaparin(*) 80 MG/0.8 ML SYR SUBCUT SCH (06:03)
[2016-05-24] MEDS: Nicotine PATCH 21 MG/24 HR* PATCH TRANSDERM SCH (08:02)
[2016-05-24] MEDS: amLODIPine TAB* 5 MG PO SCH (08:03)
[2016-05-24] MEDS: Venlafaxine EXT RELEASE CAP* 75 MG PO SCH (08:04)
[2016-05-24] MEDS: QUEtiapine TAB* 25 MG PO SCH (08:04)
[2016-05-24] MEDS: Clopidogrel TAB* 75 MG PO SCH (08:05)
[2016-05-24] MEDS: traMADol TAB* 50 MG PO PRN (08:05)
[2016-05-24] MEDS: Pantoprazole TAB (NF) 40 MG TAB PO SCH (08:07)
[2016-05-24] MEDS: Metoprolol Succinate XL TAB* 50 MG PO SCH (08:07)
[2016-05-24 09:15] VITALS: BP 136/87
--- NOTE | 2016-05-24 10:45 | HP ---
HISTORY AND PHYSICAL: CHIEF COMPLAINT: "I felt like I was going to pass out." HISTORY OF PRESENT ILLNESS: The patient is a 50-year-old woman who says she was at a store with her boyfriend at 6 p.m. today waiting, walking, and she collapsed and passed out. She does not know how long she was out. She had no chest pain, no shortness of breath, no palpitations, she was not dizzy. She woke up in the ambulance. She says this had happened before whenever she has had intense pain. She says she has intense pain in her abdomen now and she has had it for some time. She also had some vaginal bleeding. She has seen her data mining analyst about this. This pain is not new. PAST MEDICAL HISTORY: Significant for DVT in November 2015; chronic back pain; anxiety; depression; peripheral vascular disease, with left lower extremity iliac stent placement. PAST SURGICAL HISTORY: Significant for D and C, , lumbar fusion, tubal ligation, cholecystectomy. CURRENT MEDICATIONS: 1. Effexor XR 300 mg daily. 2. Seroquel 50 mg daily. 3. Protonix 40 mg daily. 4. Nitroglycerin 0.4 mg sublingual q.5 minutes as needed. 5. Metoprolol succinate 50 mg daily. 6. Gabapentin 400 mg every 4 hours. 7. Lovenox 80 mg subcu q.12. 8. Plavix 75 mg daily. 9. Lipitor 80 mg daily. 10. Tramadol 50 mg every 6 hours as needed. 11. Hydroxyzine 100 mg 3 times a day as needed. 12. Amlodipine 5 mg daily. ALLERGIES: To PENICILLIN, TORADOL, NSAIDS, FLEXERIL, TOPAMAX, TRAMADOL, ERYTHROMYCIN, YUROK, TUMS, and LIDODERM. FAMILY HISTORY: Father with coronary artery disease. Mother with CVA. SOCIAL HISTORY: The patient smokes half pack a day for 16 years, no alcohol, no recreational drug use. REVIEW OF SYSTEMS: A 14-point review of systems was completed with the patient. All pertinent positives and negatives are in the history of present illness, otherwise it is negative. PHYSICAL EXAMINATION GENERAL: A pleasant woman sitting up in bed, in no acute distress. VITAL SIGNS: Her temperature is 97.8 degrees, her heart rate 65 beats per minute, respiratory rate 19 breaths per minute, pulse ox 96%, blood pressure 101 /70. HEENT: Normocephalic, atraumatic. Pupils are equal, round, and reactive to light. Has got moist mucous membranes. NECK: Supple. No JVD, bruits, palpable thyroid, or lymphadenopathy. CHEST: Clear to auscultation and percussion bilaterally. CARDIOVASCULAR: S1, S2 appreciated. ABDOMEN: Positive bowel sounds in all 4 quadrants. Soft, nontender, and nondistended. EXTREMITIES: No cyanosis, clubbing, or edema. NEURO: Alert and oriented x3. Moves all extremities. SKIN: No rashes or abnormalities. DIAGNOSTIC STUDIES/LAB DATA: Her white count is 4.4, hemoglobin 12.6, hematocrit 38, platelets are 251. INR 1.04. Her urine culture is fairly unremarkable. Her sodium is 137, potassium 4.1, chloride 107, CO2 22, BUN 8, creatinine 0.58, glucose 115. Abdomen and pelvic CT: Hiatal hernia, status post cholecystectomy, no acute pathology visualized in the abdomen and the pelvis. Brain CT showed negative examination unchanged from 05/14/16. Cervical spine CT showed no acute CT findings, broad-based central disk herniation at C5-C6; degenerative disk disease, C6-C7. Hip and pelvic x-ray, 05/22/16, impression: No acute fracture. Knee x-ray, 05/22/16, impression: Negative examination. EKG shows normal sinus rhythm at 62 beats per minute, normal axis, no acute ST or T wave changes. ASSESSMENT AND PLAN: 1. Syncope. I think this is just from her pain. I will just monitor overnight , but there is no reason I think the patient is having any kind of a cardiac event in my opinion. We will get her pain under control. I think she could leave as early as tomorrow. 2. Deep venous thrombosis. I will continue her Lovenox. 3. Anxiety, depression. Continue current management. 4. FEN. Regular diet. 5. DVT prophylaxis. She is on Lovenox. 6. The patient is a full code. TIME SPENT: Over 80 minutes was spent on this H and P; more than 45 minutes of which was spent in direct [id number] contact with the patient in evaluation, physical exam, counseling, and coordination of care. CC: Dr. Anglin * [id number]/[facility] #: [id number] [facility] MEDICAL CENTERClaudia
--- NOTE | 2016-05-24 12:52 | DCNOTE ---
Subjective Date of Service: 05/24/16 Interval History: HOSPITALIST DISCHARGE NOTE Patient seen and examined at bedside. Feels a little better today. Impression is she has vasovagal syncope secondary to severe pain. Will d/c home on MS Contin 15mg PO BID and Hydrocodone/APAP 5/325mg 1 tab PO q4h PRN pain until she's seen at the pain clinic next week. See dictated note.
--- NOTE | 2016-05-24 19:56 | DS ---
DISCHARGE SUMMARY: DATE OF ADMISSION: 05/23/16 DATE OF DISCHARGE: 05/24/16 SPRAY OPERATOR: Jose Roberto Flynn DO. PALLET ASSEMBLER: Dr. Guillen. INTERVENTIONAL RADIOLOGIST: Neftaly Howe MD PRIOR PRIMARY CARE PHYSICIAN: Dr. Anglin. DISCHARGE DIAGNOSIS: Syncopal episode, likely vasovagal associated with pain. SECONDARY DIAGNOSES: 1. 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 Howe. 2. Chronic pelvic and back pain. 3. Anxiety. 4. Depression. 5. Status post cholecystectomy. 6. Postmenopausal vaginal bleeding. 7. Hypertension. 8. Possible coronary artery disease. 9. Seizure disorder. MEDICATION LIST: 1. Acetaminophen 650 mg p.o. q.4 hours p.r.n. pain or fever. 2. Amlodipine 5 mg p.o. daily. 3. Atorvastatin 80 mg p.o. daily. 4. Clopidogrel 75 mg p.o. daily. 5. Lovenox 80 mg subcu q.12 hours. 6. Gabapentin 400 mg p.o. q.4 hours. 7. Hydroxyzine 100 mg p.o. t.i.d. as needed for anxiety. 8. Metoprolol succinate 50 mg p.o. daily. 9. Nitroglycerin 0.4 mg sublingual q.5 minutes p.r.n. pain. 10. Pantoprazole 40 mg p.o. daily. 11. Seroquel 50 mg p.o. daily. 12. Effexor ER 300 mg p.o. daily. NEW MEDICATIONS: 1. MS Contin 15 mg p.o. q.12 hours, dispensed 30 tablets, MDD 30 mg; no refills. 2. Hydrocodone/acetaminophen 5/325 mg 1 tablet p.o. q.4 hours as needed for severe pain, MDD of 6 tablets a day, dispensed 50 tablets, no refills. The [facility] prescription monitoring program was controlled and the patient last received prescription for oxycodone on 04/21/16, only 4 tablets. She did receive a prescription for Tramadol on 05/19/16, but this medication seems to be not working for her. Reference number is [id number]. HOSPITAL COURSE: Ms. Agosto is a 50-year-old lady with the past medical history stated above who presented to the emergency room after multiple syncopal episodes. This is her third admission in April. On 05/14/16, she was admitted with complaints of abdominal pain of unclear etiology. She was also found to have troponin elevation at that time, although she had no complaints of chest pain and at that time, the impression was that she could possibly have a non-ST elevation [place] and a nuclear cardiac stress test was read by Radiology as showing a moderate sized ischemic defect in the anterior wall. The patient declined cardiac catheterization at that time and she was seen in consultation by Cardiology, (Dr. Flynn), and at that time he was not sure what caused elevation of her troponins. He felt there was no evidence of an acute type 1 plaque rupture ACS, although a more recent coronary event cannot be entirely excluded. She was continued on Plavix, atorvastatin, metoprolol and plan was for medical management. The patient was discharged home and returned on with complaints of chest pain. At that time, her troponins were trending down. She was seen in evaluation by Dr. Dhaliwal and he felt that her pain was likely musculoskeletal and we could continue medical management. At that point , metoprolol and atorvastatin were increased and sublingual nitro was added. The patient returned to the emergency room on 05/22/16 after she had a syncopal episode that she feels is associated with pain. She has had significant pelvic pain and she states that that day she had a very intense episode and passed out at home. She was brought into the emergency room, evaluated and discharged home. She went grocery shopping with her and states that while she was pushing the cart, she had another episode of the same pelvic pain and had another syncopal episode that prompted her admission. Her workup at this point is unremarkable. She had a CT of the abdomen and pelvis that showed hiatal hernia status post cholecystectomy. No acute CT pathology of the visualized abdomen or pelvis. CT of the brain was a negative examination. Cervical spine CT that showed no acute CT findings, only a broad based central disk herniation at C5-C6 and degenerative disk disease C6-C7. A hip and pelvis x-ray showed no acute fracture and a left knee x- rays was also negative study. While on telemetry, she had no significant arrhythmias. She was seen in consultation by Cardiology, (Dr. Waters), and his impression is that the patient has a longstanding history of chronic stable vasovagal syncope. While her stress test recently was interpreted by the radiologist as demonstrating a moderate anterior ischemic defect, he felt that this was likely artifact, especially after review of the attenuated corrected images and Dr. Waters felt that the study was a low risk study with no definite evidence of ischemia or infarction including after review of the attenuation corrected images and her contemporaneous echocardiogram. Her symptoms of syncope do not appear to be ischemic in etiology. He felt that there was no indication for cardiac catheterization at this time. He recommended that as an outpatient, her last sawyer could consider weaning off or discontinuing Norvasc and increasing the Toprol XL further as it is felt that it may help to blunt further the afferent limb of the Bezold-Jarisch reflex, which is felt etiologic in vasovagal syncope. Obviously, pain control would also be very helpful as well as continued hydration to blunt her vasovagal syncopal events. As Dr. Waters does not feel strongly that the patient has coronary artery disease, he did not think she requires an antiplatelet agent, but she does require Plavix for her stent as it was described in Dr. Howe's note from 03/14/16. At that point, his recommendation was for aspirin 81 mg daily for life and Plavix 75 mg daily for 6 to 12 months depending on his evaluation. Unfortunately the patient had an allergic reaction to ASPIRIN, (hives), so at this point Plavix is the only antiplatelet agent that she can take, so we are going to continue it, not for CAD but for her iliac vein stent. Dr. Waters also recommended evaluation for obstructive sleep apnea as an outpatient, which the patient has apparently been diagnosed, but it is not being treated. Another issue is her episode of recurrent vaginal bleed. The patient is overweight and postmenopausal and she will need workup for this bleeding, especially for endometrial causes. The patient states that her PCP is aware, but was trying to deal with her DVT and May-Thurner syndrome first. The patient is interested in switching primary care providers at this time as she would feel more comfortable seeing a female provider. The patient feels improved at this time, but I believe her major issue is severe pain causing the syncopal episodes. She has an appointment scheduled with the pain clinic for the next week, so my plan is to add MS Contin and hydrocodone as needed to try and give her some pain relief until she is seen at the pain clinic and hopefully better pain control will be obtained then. The patient is medically stable for discharge at this time. PHYSICAL EXAMINATION: General: The patient is a pleasant middle-aged lady, sitting up in bed, in no acute distress. Vital Signs: Temperature 98.1, heart rate is 78, respiratory rate is 16, oxygen saturation is 96% on room air, blood pressure is 136/87. Chest: Breath sounds present bilaterally, with no added sounds. CVS: Normal S1 and S2. Regular rate and rhythm. Abdomen: Soft. Bowel sounds are present. Extremities: There is trace edema especially around the left ankle. Neuro: She is alert and oriented x3, able to move all 4 extremities. DIET: Heart healthy diet. ACTIVITIES: As tolerated. DISPOSITION: To home. STATUS WHILE IN THE HOSPITAL: Observation. Although Dr. Waters feels that the patient does not have coronary artery disease , we will defer further decision in that respect to her last sawyer, Dr. Flynn. Also, although we believe that her syncope is likely vasovagal, I will also defer to Dr. Flynn if he feels outpatient heart monitor with Holter, loop recorder or even an event monitor is indicated. Please keep in mind that this is a summarized version of this patient's hospital stay. If you need more information, please feel free to call me at or please obtain the full medical records. TIME SPENT: Approximately 45 minutes was spent to complete this discharge. CC: Jose Roberto Flynn DO; Dr. Guillen; Neftaly Howe MD; Dr. Anglin * [id number]/[facility] #: [id number] MTDD
== END 2016-05-24 11:30 | disposition home or self-care (01) ==
LOC: ED 17:26 → ICU 05-23 04:40 → MEDTELE 05-23 05:48
PROVIDERS: ADMIT Internal Medicine; ATTEND Internal Medicine
DX: R55 Syncope and collapse (principal); R51 Headache; S09.90XA Unspecified injury of head, initial encounter; W18.39XA Other fall on same level, initial encounter; Y92.9 Unspecified place or not applicable; R10.32 Left lower quadrant pain; Z86.718 Personal history of other venous thrombosis and embolism; Z79.01 Long term (current) use of anticoagulants; K44.9 Diaphragmatic hernia without obstruction or gangrene; M54.9 Dorsalgia, unspecified; R10.2 Pelvic and perineal pain; G89.29 Other chronic pain; F41.9 Anxiety disorder, unspecified; F32.9 Major depressive disorder, single episode, unspecified; I10 Essential (primary) hypertension; G40.909 Epilepsy, unspecified, not intractable, without status epilepticus; Z79.899 Other long term (current) drug therapy; Z88.6 Allergy status to analgesic agent; Z88.1 Allergy status to other antibiotic agents; Z88.0 Allergy status to penicillin; Z88.8 Allergy status to other drugs, medicaments and biological substances; F17.210 Nicotine dependence, cigarettes, uncomplicated; M50.322 Other cervical disc degeneration at C5-C6 level; M25.562 Pain in left knee; I48.91 Unspecified atrial fibrillation; M25.552 Pain in left hip
CPT/HCPCS: 36415; 70450; 72125; 74177; 81003; 81015; 84484; 85610; 85730; 87086; 96361; 96372; 96374; 96376; 99284; 99406; A9270-GY; G0378; J1170; J1650; Q9967

== ENCOUNTER 2016-05-30 18:05 | Observation (INO) | payer OTHER ==
[2016-05-30] MEDS ORDERED: Ondansetron INJ* 2 MG/ML VIAL IV ONE (19:09)
[2016-05-30] MEDS ORDERED: NS 0.9% 1000 ML* 1,000 ML IV ONE ×2 (19:09→21:06)
[2016-05-30] MEDS ORDERED: LORazepam INJ* 2 MG/ML 1 ML VIAL IV PUSH ONE (19:10)
[2016-05-30 19:13] LABS: Hematocrit 37 % (35-47); Hemoglobin 12.3 g/dl (12.0-16.0); Mean Corpuscular HGB Conc 33 g/dl (31-36); Mean Corpuscular Hemoglobin 28 pg (27-31); Mean Corpuscular Volume 85 fL (80-97); Red Blood Count 4.39 10^6/ul (4.0-5.4); Red Cell Distribution Width 17 % (10.5-15); White Blood Count 5.9 10^3/ul (3.5-10.8)
[2016-05-30 19:18] LABS: Comments Flag Yes
[2016-05-30 19:19] LABS: Add Diff/Slide Review? Slide Review Added
[2016-05-30 19:32] LABS: Albumin 4.2 g/dL (3.2-5.2); BUN/Creatinine Ratio 11.9 (8-20); C Reactive Protein 3.93 mg/L (< 5.00); Calcium 9.7 mg/dL (8.6-10.3); EGFR African American 138.2 (>60); EGFR Non-African American 107.5 (>60); Globulin 3.6 g/dL (2-4); Potassium 4.1 mmol/L (3.5-5.0); Total Bilirubin 0.4 mg/dL (0.2-1.0); Total Protein 7.8 g/dL (6.4-8.9)
[2016-05-30] MEDS ORDERED: hydrALAZINE IV* 20 MG/ML VIAL IV SLOW PU ONE (19:47)
[2016-05-30] MEDS ORDERED: Morphine INJ* 10 MG/ML 1 ML CARPUJECT IV ONE ×2 (19:48→21:43)
[2016-05-30] MEDS ORDERED: Metoclopramide IV* 5 MG/ML 2 ML VIAL IV ONE (21:43)
--- NOTE | 2016-05-30 22:07 | ED ---
Malick Sanchez Aidan, scribed for Sebastián Ram MD on 05/30/16 at 1854 . Abdominal Pain/Female - HPI Summary HPI Summary: 51 y/o female presents to the ED with a complaint of acute, constant, severe abdominal pain that is aggravated by palpating the abdomen. She has experienced a similar pain before, which was slightly alleviated by a GI cocktail. Associated symptoms include vomiting. Pt denies any blood, hematochezia, black stool, or alcohol use. Her stomach doctor is Dr. Correia in [place]. Prior to today, she was eating and drinking normally. SHx: DNC, lumbar fusion, cholecystectomy, She was admitted for pain control of her abdomen. CT abdomen 05/22/2016 indicated no acute problems. Admission on 05/18 for recent NSTEMI and chronic pain. She presented again with chest pain and was evaluated for cardio-catheterization, however, physicians thought the issue was simply musculoskeletal pain. She was again admitted on 05/14/2016 for abdominal pain. A nuclear stress test indicated moderate size with ischemic defect anterior wall. A CTA chest/abdomen on 05/14 showed no PE or aortic aneurism. Another CTA chest in December revealed no evidence of PE. Labs were reviewed and her highest troponin bumped to 2 on May 14. - History of Current Complaint Chief Complaint: EDAbdPain Stated Complaint: CHEST DISCOMFORT Time Seen by Provider: 05/30/16 18:14 Hx Obtained From: Patient Hx Last Menstrual Period: 51 Y/O FEMALE ?: No Onset/Duration: Gradual Onset, Lasting Days, Still Present Timing: Constant Severity Initially: Severe Severity Currently: Severe Pain Intensity: 10 Pain Scale Used: 0-10 Numeric Location: Diffuse Radiates: No Character: Sharp Aggravating Factor(s): Other: - palpating stomach Alleviating Factor(s): Other: - GI cocktail alleviated a similar abdominal pain , according to the patient Associated Signs and Symptoms: Positive: Vomiting. Negative: Fever Simlar Episode/Dx as:: Pt has had a similar abdominal pain to a lesser severity Allergies/Adverse Reactions: Allergies Allergy/AdvReac Type Severity Reaction Status Date / Time Aspirin Allergy Intermediate Hives Verified 05/22/16 10:02 Cyclobenzaprine Allergy Intermediate Difficulty Verified 05/22/16 10:02 [From Flexeril] Swallowing Ketorolac Tromethamine Allergy Intermediate Difficulty Verified 05/22/16 10:02 [From Toradol] Swallowing Clonazepam [From Klonopin] Allergy Mild Rash Verified 05/22/16 10:02 NSAIDs Allergy Mild Itching Verified 05/22/16 10:02 Penicillins [PCN] Allergy Mild Rash Verified 05/22/16 10:02 Topiramate [From Topamax] AdvReac Mild Headache Verified 05/22/16 10:02 Erythromycin AdvReac See Comment Verified 05/22/16 10:02 council Allergy Severe Swelling Uncoded 05/18/16 11:58 Of Face,Lips,& Throat lidoderm Allergy Mild Rash Uncoded 05/18/16 11:58 tums AdvReac Mild Dizziness Uncoded 05/19/16 00:49 PMH/Surg Hx/FS Hx/Imm Hx Endocrine/Hematology History: Reports: Hx Anticoagulant Therapy - lovenox, 4 months Denies: Hx Blood Disorders, Hx Blood Transfusions, Hx Bone Marrow Disease, Hx Diabetes, Hx Systemic Lupus Erythematosus, Hx Sickle Cell Disease, Hx Thyroid Disease, Hx Anemia, Hx Unexplained Bleeding Cardiovascular History: Reports: Hx Angina, Hx Deep Vein Thrombosis - 1993 left calf, Hx Syncope Denies: Hx Aneurysm, Hx Angioplasty, Hx Auto Implanted Cardiovert Defib, Hx Cardiac Arrest, Hx Cardiomegaly, Hx Congenital Heart Disease, Hx Congestive Heart Failure, Hx Coronary Artery Disease, Hx Embolism, Hx Hypercholesterolemia , Hx Hypotension, Hx Hypertension, Hx Myocardial Infarction, Hx Pacemaker/ICD, Hx Peripheral Vascular Disease, Hx Rheumatic Fever, Hx Valvular Heart Disease, Other Cardiovascular Problems/Disorders Respiratory History: Reports: Hx Pneumonia Denies: Hx Asthma, Hx Chronic Bronchitis, Hx Chronic Obstructive Pulmonary Disease (COPD), Hx Cystic Fibrosis, Hx Lung Cancer, Hx Pleural Effusion, Hx Pulmonary Edema, Hx Pulmonary Embolism, Hx Seasonal Allergies, Hx Sleep Apnea, Other Respiratory Problems/Disorders GI History: Reports: Hx Gall Bladder Disease - taken out 2012, Hx Gastroesophageal Reflux Disease, Hx Gastrointestinal Bleed Denies: Hx Cirrhosis, Hx Crohn's Disease, Hx Diverticulosis, Hx Hiatal Hernia , Hx Irritable Bowel, Hx Jaundice, Hx Obstructive Bowel, Hx Ileostomy, Hx Pyloric Stenosis, Hx Ulcer, Other GI Disorders History: Denies: Hx Acute Renal Failure, Hx Benign Prostatic Hyperplasia, Hx Chronic Renal Failure, Hx Dialysis, Hx Kidney Infection, Hx Kidney Stones, Hx Renal Disease, Other Problems/Disorders Musculoskeletal History: Reports: Hx Back Problems - chronic back pain, T4-T5 fusion, Hx Fibromyalgia - 2005 Denies: Hx Arthritis, Hx Bursitis, Hx Congenital Bone Abnormalities, Hx Gout , Hx Orthopedic Injury, Hx Osteoporosis, Hx Scoliosis, Hx Tendonitis Sensory History: Reports: Hx Contacts or Glasses - Reading Denies: Hx Cataracts, Hx Eye Injury, Hx Eye Prosthesis, Hx Glaucoma, Hx Legally Blind, Hx Macular Degeneration, Hx Vision Problem, Hx Deafness, Hx Hearing Aid, Hx Hearing Problem, Other Sensory Impairments Opthamlomology History: Reports: Hx Contacts or Glasses - Reading Denies: Hx Cataracts, Hx Eye Injury, Hx Eye Prosthesis, Hx Glaucoma, Hx Legally Blind, Hx Macular Degeneration, Hx Vision Problem, Other Sensory Impairments Neurological History: Reports: Hx Dementia, Hx Migraine, Hx Seizures, Other Neuro Impairments/Disorders - prev back surg, bells palsy, chronic back pain - L4-5 spinal fusion 2009 Denies: Hx Developmental Delay, Hx Headaches, Hx Nerve Disease, Hx Spinal Cord Injury, Hx Transient Ischemic Attacks (TIA) Psychiatric History: Reports: Hx Anxiety, Hx Depression Denies: Hx Attention Deficit Hyperactivity Disorder, Hx Eating Disorder, Hx Panic Disorder, Hx Post Traumatic Stress Disorder, Hx Inpatient Treatment, Hx Community Mental Health Tx, Hx Schizophrenia, Hx Bipolar Disorder, Hx Suicide Attempt, Hx of Violent Episodes Against Others, Hx Substance Abuse - Surgical History Surgery Procedure, Year, and Place: D&C-1987 [facility] [place]. - 1997 [facility] [place]. lumbar FUSION - 2009 [place]. TUBAL LIGATION 1997. Gall bladder 2012 Hx Anesthesia Reactions: No - Immunization History Date of Tetanus Vaccine: 04/27/15 Date of Influenza Vaccine: None Infectious Disease History: No Infectious Disease History: Denies: Hx Clostridium Difficile, Hx Hepatitis, Hx Human Immunodeficiency Virus (HIV), Hx of Known/Suspected MRSA, Hx Shingles, Hx Tuberculosis, Hx Known/ Suspected VRE, Hx Known/Suspected VRSA, History Other Infectious Disease, Traveled Outside the [place] in Last 30 Days - Family History Known Family History: Positive: Cardiac Disease, Hypertension, Diabetes, Seizure Disorder - paternal, maternal, Other Family History: Mother alive in 60s with Hx of gallbladder CA, DVT. Father alive in 60s with Hx of CAD - Social History Occupation: Unemployed Lives: Alone Alcohol Use: None Hx Substance Use: No Substance Use Type: Reports: None Hx Tobacco Use: Yes Smoking Status (MU): Light Every Day Tobacco Smoker Type: Cigarettes Amount Used/How Often: 4 Cigarettes/DAY Have You Smoked in the Last Year: Yes Review of Systems Constitutional: Negative Eyes: Negative ENT: Negative Cardiovascular: Negative Respiratory: Negative Positive: Abdominal Pain, Vomiting. Negative: Diarrhea, Nausea Genitourinary: Negative Musculoskeletal: Negative Skin: Negative Neurological: Negative Psychological: Normal All Other Systems Reviewed And Are Negative: Yes Physical Exam Triage Information Reviewed: Yes Vital Signs On Initial Exam: Initial Vitals Temp Pulse Resp BP Pulse Ox 99.7 F 118 22 136/103 100 05/30/16 18:26 05/30/16 18:26 05/30/16 18:26 05/30/16 18:26 05/30/16 18:26 Vital Signs Reviewed: Yes Appearance: Positive: Pain Distress - holding abdomen, complaining of pain Skin: Positive: Warm, Skin Color Reflects Adequate Perfusion, Dry ENT: Positive: Other - moist mucosa Neck: Positive: Supple, Nontender - soft, No Lymphadenopathy, Other: - no edema Respiratory/Lung Sounds: Positive: Clear to Auscultation, Breath Sounds Present. Negative: Rales, Rhonchi, Wheezes Cardiovascular: Positive: RRR, Other - no gallops, S1, S2. Negative: Murmur, Rub Abdomen Description: Positive: Soft. Negative: Nontender - epigastric tenderness, CVA Tenderness (R), CVA Tenderness (L), Distended - flat, Pulsatile Mass Bowel Sounds: Positive: Present Musculoskeletal: Positive: Other - calves soft, no pitting edema. Negative: Edema Left, Edema Right Neurological: Positive: Alert, Oriented to Person Place, Time Psychiatric: Positive: Normal - Pt is complaining of abdominal pain Procedures - Procedure Summary Procedure Summary: : left arm US guided IV due to poor IV access, 2 attempts superficial radial as well as deeper radial forearm Diagnostics - Vital Signs Vital Signs Temp Pulse Resp BP Pulse Ox 05/30/16 18:26 99.7 F 118 22 136/103 100 - Laboratory Lab Results: Lab Results 05/30/16 05/30/16 05/30/16 Range/Units 19:00 19:00 19:00 WBC 5.9 (3.5-10.8) 10^3/ul RBC 4.39 (4.0-5.4) 10^6/ul Hgb 12.3 (12.0-16.0) g/dl Hct 37 (35-47) % MCV 85 (80-97) fL MCH 28 (27-31) pg MCHC 33 (31-36) g/dl RDW 17 H (10.5-15) % Plt Count 269 (150-450) 10^3/ul MPV Not Reportable Neut % (Auto) 86.7 H (38-83) % Lymph % (Auto) 9.5 L (25-47) % [place] % (Auto) 3.0 (1-9) % Eos % (Auto) 0.3 (0-6) % Baso % (Auto) 0.5 (0-2) % Absolute Neuts (auto) 5.1 (1.5-7.7) 10^3/ul Absolute Lymphs (auto) 0.6 L (1.0-4.8) 10^3/ul Absolute Monos (auto) 0.2 (0-0.8) 10^3/ul Absolute Eos (auto) 0 (0-0.6) 10^3/ul Absolute Basos (auto) 0 (0-0.2) 10^3/ul Absolute Nucleated RBC 0.01 10^3/ul Nucleated RBC % 0.1 Sodium 139 (133-145) mmol/L Potassium 4.1 (3.5-5.0) mmol/L Chloride 104 (101-111) mmol/L Carbon Dioxide 27 (22-32) mmol/L Anion Gap 8 (2-11) mmol/L BUN 7 (6-24) mg/dL Creatinine 0.59 (0.51-0.95) mg/dL Est GFR ( Amer) 138.2 (>60) Est GFR (Non-Af Amer) 107.5 (>60) BUN/Creatinine Ratio 11.9 (8-20) Glucose 127 H (70-100) mg/dL Lactic Acid 1.3 (0.5-2.0) mmol/L Calcium 9.7 (8.6-10.3) mg/dL Total Bilirubin 0.40 (0.2-1.0) mg/dL AST 17 (13-39) U/L ALT 24 (7-52) U/L Alkaline Phosphatase 124 H (34-104) U/L Troponin I 0.00 (<0.04) ng/mL C-Reactive Protein 3.93 (< 5.00) mg/L Total Protein 7.8 (6.4-8.9) g/dL Albumin 4.2 (3.2-5.2) g/dL Globulin 3.6 (2-4) g/dL Albumin/Globulin Ratio 1.2 (1-3) Lipase 15 (11.0-82.0) U/L Result Diagrams: 05/30/16 19:00 05/30/16 19:00 Lab Statement: Any lab studies that have been ordered have been reviewed, and results considered in the medical decision making process. - EKG EKG 214 Cardiac Rate: Tachycardia - 120 EKG Rhythm: Sinus Tachycardia EKG Interpretation: SINUS TACHYCARDIA WITH NO CHANGES Re-Evaluation - Re-Evaluation First Eval Re-Evaluation Time: 21:10 - Heart rate remains in the 1-teens, she is symptomatically improved but still remains diffusely tender on exam, with abnormal vitals and significant remaining tenderness, I believe that it is best to admitt and observe. Weve also been treating her rather significant hypertension. Change: Unchanged Abdominal Pain Fem Course/Dx - Course Course Of Treatment: This is a 51 y/o female with acute, constant, severe abdominal pain that is aggravated by palpating the abdomen. She has experienced a similar pain before, which was slightly alleviated by a GI cocktail. Associated symptoms include vomiting. Pt denies any blood, hematochezia, black stool, or alcohol use. Her stomach doctor is Dr. Correia in [place]. Prior to today, she was eating and drinking normally. SHx: DNC, lumbar fusion, cholecystectomy, She was admitted for pain control of her abdomen. CT abdomen indicated no acute problems. Admission on 05/18/2016 for recent NSTEMI and chronic pain. She presented again with chest pain and was evaluated for cardio-catheterization, however, physicians thought the issue was simply musculoskeletal pain. She was again admitted on 05/14/2016 for abdominal pain. A nuclear stress test indicated moderate size with ischemic defect anterior wall. A CTA chest/abdomen on 05/14 showed no PE or aortic aneurism. Another CTA chest in December revealed no evidence of PE. Labs were reviewed and her highest troponin bumped to 2 on May 14. The patient will be admitted to Dr. Hargrove. Presents again for repeated episodes of vomiting and abdominal pain, she has a nonsurgical belly and surgery was not consulted recent CT scans reviewed and were normal. CRP and CVC were also normal. 3.5 hours into her stay , she continues to vomit and have pain. She is still tachycardic with a rate of 118 BPM. Etiology is still unclear. She is admitted to the hospitalist for suportive care and intractable vomiting. - Diagnoses Differential Diagnosis: Positive: Appendicitis, Bowel Obstruction, Constipation , Diverticulitis, Gall Bladder Disease, Irritable Bowel Syndrome, Ovarian Cyst, Pancreatitis, Pelvic Inflammatory Disease, Peptic Ulcer Disease, Urinary Tract Infection Provider Diagnoses: Intractable vomiting with nausea, Abdominal pain, Tachycardia Discharge - Discharge Plan Condition: Stable Disposition: ADMITTED TO [facility] Referrals: Shanda Anglin MD [Primary Care Provider] - The documentation as recorded by the Malick blanco Aidan accurately reflects the service I personally performed and the decisions made by Leanna wolff Farzad, MD.
[2016-05-30] MEDS ORDERED: hydrOXYzine HCL TAB* 50 MG PO PRN (22:28)
[2016-05-30] MEDS ORDERED: HYDROcodone/ACETAMIN 5-325 MG* 1 TAB PO PRN (22:28)
[2016-05-30] MEDS ORDERED: Acetaminophen TAB* 325 MG PO PRN (22:28)
[2016-05-30] MEDS ORDERED: Nitroglycerin TAB 0.4 MG* 0.4 MG TAB SL PRN (22:28)
[2016-05-30] MEDS ORDERED: Ondansetron INJ* 2 MG/ML VIAL IV PRN (22:30)
[2016-05-30] MEDS ORDERED: NS 0.9% 1000 ML* 1,000 ML IV SCH (22:30)
[2016-05-30] MEDS ORDERED: Al Hydrox/Mg Hydrox/Simet LIQ* 30 ML UDC PO PRN (23:07)
[2016-05-31] MEDS: NS 0.9% 1000 ML* 1,000 ML IV SCH ×2 (00:25→07:32)
[2016-05-31] MEDS ORDERED: Morphine INJ* 4 MG/ML 1 ML CARPUJECT IV ONE (00:28)
[2016-05-31] MEDS: Enoxaparin(*) 80 MG/0.8 ML SYR SUBCUT SCH ×2 (01:15→10:49)
--- NOTE | 2016-05-31 02:43 | HP ---
HISTORY AND PHYSICAL: DATE OF ADMISSION: 05/30/16 CHIEF COMPLAINT: Stomach ache. HISTORY OF PRESENT ILLNESS: The patient is a 51-year-old woman with multiple admissions recently to the hospital who presents today with a chief complaint of stomach ache that started this morning. She denies any change in her diet or change in her medication. It is an epigastric discomfort that is not any worse with or without food. She feels she has had fevers and chills. She had no changes in her bowel movements. She has had no blood in her stools. She said the vomiting was intractable despite medication she received in the ED. She feels very weak and dehydrated. In the ED, the patient was evaluated, given antiemetics and fluids, and did not improve. She was also quite tachycardic. PAST MEDICAL HISTORY: Significant for recent admission for vasovagal syncope associated with pain as well as DVT in November 2015, chronic back pain, anxiety, depression, peripheral vascular disease, lower extremity, iliac stent placement , seizure disorder. PAST SURGICAL HISTORY: Significant for D and C, , lumbar fusion, tubal ligation and cholecystectomy. MEDICATIONS: 1. Tylenol 650 mg every 4 hours as needed. 2. Amlodipine 5 mg daily. 3. Atorvastatin 80 mg daily. 4. Plavix 75 mg daily. 5. Lovenox 80 subcu q.12 hours. 6. Gabapentin 400 mg every 4 hours. 7. Hydroxyzine 100 mg 3 times a day as needed for anxiety. 8. Metoprolol succinate 50 mg daily. 9. Nitroglycerin 0.4 mg sublingual q.5 minutes as needed. 10. Protonix 40 mg daily. 11. Seroquel 50 mg daily. 12. Effexor XR 300 mg daily. 13. MS Contin 50 mg every 12 hours. 14. [place] 5/325 mg every 4 hours as needed. ALLERGIES: She has an allergy/adverse effect to PENICILLIN, TORADOL, NSAIDS, LEXAPRO, TOPAMAX, TRAMADOL, ERYTHROMYCIN, [place], TUMS, and LIDODERM. FAMILY HISTORY: Father with coronary artery disease. Mother had CVA. SOCIAL HISTORY: She smokes half a pack a day for 16 years. No alcohol. No recreational drug use. REVIEW OF SYSTEMS: A 14-point review of systems was completed with the patient. All pertinent positives and negatives are in the history of present illness, otherwise it is negative. PHYSICAL EXAMINATION GENERAL: An obese woman, lying in bed, uncomfortable, but not in acute distress. VITAL SIGNS: Heart rate 122 beats per minute, respiratory rate 24 breaths per minute, blood pressure 138/98, T-max 99.7. HEENT: Normocephalic, atraumatic. Pupils are equal, round and reactive to light. Moist mucous membranes. NECK: Supple. No JVD, bruits, palpable thyroid, or lymphadenopathy. CHEST: Clear to auscultation and percussion bilaterally. CARDIOVASCULAR: S1, S2 appreciated. Regular rate and rhythm. No murmurs, gallops, or rubs. ABDOMEN: Positive bowel sounds in all 4 quadrants. Soft, nontender, nondistended. No hepatosplenomegaly. EXTREMITIES: No cyanosis, clubbing, or edema. +2 peripheral pulses bilaterally. NEUROLOGIC: Alert and oriented x3. Moves all extremities. SKIN: No distinct rashes or abnormalities. LABORATORY DATA: Sodium 139, potassium 4.1, chloride 104, CO2 27, BUN 7, creatinine 0.59, glucose 127. White count 5.9, hemoglobin 12.3, hematocrit 37, platelets of 269. EKG shows sinus tachycardia, 120 beats a minute. Normal axis. No acute ST-T wave changes. ASSESSMENT AND PLAN: 1. Gastroenteritis. We will hydrate the patient with 150 cc of normal saline, Zofran p.r.n. for nausea, Maalox p.r.n. for indigestion. I expect the patient will improve rapidly over the next 24 hours. 2. Deep venous thrombosis. Continue Lovenox 80 mg subcu q.12. 3. Gastroesophageal reflux disease. Continue Protonix 40 mg daily. 4. Anxiety. Continue Effexor and hydroxyzine. 5. Chronic pain. Continue morphine and [place]. 6. DVT prophylaxis. She is on Lovenox. 7. FEN. Regular diet. 8. The patient is a full code. TIME SPENT: Over 80 minutes were spent on this H and P; more than 45 minutes of which was spent direct [id number] contact with the patient in evaluation, physical exam, counseling, and coordination of care. CC: Dr. Anglin* [id number]/[facility] #: [id number] [facility]
[2016-05-31] MEDS: Gabapentin CAP(*) 400 MG PO SCH ×4 (02:56→14:40)
[2016-05-31 08:45] LABS: Urine Bilirubin Negative (Negative); Urine Glucose Negative (Negative); Urine Nitrite Negative (Negative)
[2016-05-31] MEDS ORDERED: Clopidogrel TAB* 75 MG PO SCH (09:00)
[2016-05-31] MEDS ORDERED: CMCS: Pantoprazole TAB (NF) 40 MG TAB PO SCH (09:00)
[2016-05-31] MEDS ORDERED: Morphine TAB Extended Release (*) 15 MG TAB.ER PO SCH (09:00)
[2016-05-31] MEDS ORDERED: Metoprolol Succinate XL TAB* 50 MG PO SCH (09:00)
[2016-05-31] MEDS ORDERED: Venlafaxine EXT RELEASE CAP* 75 MG PO SCH (09:00)
[2016-05-31] MEDS ORDERED: QUEtiapine TAB* 25 MG PO SCH (09:00)
[2016-05-31] MEDS ORDERED: amLODIPine TAB* 5 MG PO SCH (09:00)
--- NOTE | 2016-05-31 12:41 | DCNOTE ---
Subjective Date of Service: 05/31/16 Interval History: No more GI sx's. Hungry. Anxious to go home. Objective Active Medications: Acetaminophen (Tylenol Tab*) 650 mg PO Q4H PRN PRN Reason: FEVER/PAIN Acetaminophen/Hydrocodone Bitart ([place] 5-325 Tab*) 1 tab PO Q4H PRN PRN Reason: SEVERE PAIN Last Admin: 05/31/16 02:56 Dose: 1 tab Al Hydrox/Mg Hydrox/Simethicone (Maalox Plus*) 30 ml PO Q4H PRN PRN Reason: INDIGESTION Amlodipine Besylate (Norvasc Tab*) 5 mg PO DAILY [facility] Last Admin: 05/31/16 08:09 Dose: 5 mg Atorvastatin Calcium (Lipitor*) 80 mg PO 1700 [facility] Clopidogrel Bisulfate (Plavix Tab*) 75 mg PO DAILY [facility] Last Admin: 05/31/16 08:09 Dose: 75 mg Enoxaparin Sodium (Lovenox(*)) 80 mg SUBCUT Q12H [facility] Last Admin: 05/31/16 10:49 Dose: 80 mg Gabapentin (Neurontin Cap(*)) 400 mg PO Q4HR [facility] Last Admin: 05/31/16 10:49 Dose: 400 mg Hydroxyzine HCl (Atarax Tab*) 100 mg PO TID PRN PRN Reason: ANXIETY Last Admin: 05/31/16 02:56 Dose: 100 mg Sodium Chloride (Ns 0.9% 1000 Ml*) 1,000 mls @ 150 mls/hr IV PER RATE [facility] Last Admin: 05/31/16 07:32 Dose: 150 mls/hr Metoprolol Succinate (Toprol Xl Tab*) 50 mg PO DAILY [facility] Last Admin: 05/31/16 08:09 Dose: 50 mg Morphine Sulfate (Ms Contin(*)) 15 mg PO Q12HR [facility] Last Admin: 05/31/16 08:07 Dose: 15 mg Nitroglycerin (Nitroglycerin Tab 0.4 Mg*) 0.4 mg SL Q5M PRN PRN Reason: Chest pain Ondansetron HCl (Zofran Inj*) 4 mg IV Q4H PRN PRN Reason: NAUSEA Last Admin: 05/31/16 00:23 Dose: 4 mg Pantoprazole Sodium (Protonix Tab (Nf)) 40 mg PO DAILY [facility] Last Admin: 05/31/16 08:09 Dose: 40 mg Quetiapine Fumarate (Seroquel Tab*) 50 mg PO DAILY [facility] Last Admin: 05/31/16 08:09 Dose: 50 mg Venlafaxine HCl (Effexor Xr Cap*) 300 mg PO DAILY [facility] Last Admin: 05/31/16 08:10 Dose: 300 mg Vital Signs 05/30/16 05/31/16 05/31/16 23:15 00:47 01:31 Temperature 98.3 F Pulse Rate 130 Respiratory 20 16 14 Rate Blood Pressure 149/68 (mmHg) O2 Sat by Pulse 99 Oximetry 05/31/16 05/31/16 05/31/16 01:47 02:56 03:22 Temperature 100.2 F Pulse Rate 124 Respiratory 14 18 17 Rate Blood Pressure 137/60 (mmHg) O2 Sat by Pulse 98 Oximetry 05/31/16 05/31/16 05/31/16 04:56 05:42 07:26 Temperature 99.2 F Pulse Rate 121 Respiratory 18 18 20 Rate Blood Pressure 146/63 (mmHg) O2 Sat by Pulse 97 Oximetry 05/31/16 05/31/16 05/31/16 07:42 08:00 08:07 Temperature Pulse Rate Respiratory 22 26 28 Rate Blood Pressure (mmHg) O2 Sat by Pulse Oximetry 05/31/16 05/31/16 10:07 10:49 Temperature Pulse Rate Respiratory 18 18 Rate Blood Pressure (mmHg) O2 Sat by Pulse Oximetry Oxygen Devices in Use Now: None Appearance: Alert, partly up in bed. In good spirits. Looks comfortable. Eyes: No Scleral Icterus Ears/Nose/Mouth/Throat: Clear Oropharnyx, Mucous Membranes Moist Neck: NL Appearance and Movements; NL JVP, No Thyroid Enlargement, Masses Respiratory: Symmetrical Chest Expansion and Respiratory Effort, Clear to Auscultation, Clear to Percussion Cardiovascular: NL Sounds; No Murmurs; No JVD, RRR, No Edema, - Abdominal: NL Sounds; No Tenderness; No Distention, No Hepatosplenomegaly, - Extremities: No Edema, No Clubbing, Cyanosis, - Skin: No Rash or Ulcers, No Nodules or Sclerosis, - Neurological: Alert and Oriented x 3, NL Sensation Result Diagrams: 05/30/16 19:00 05/30/16 19:00 Additional Lab and Data: Lab Results 05/30/16 05/30/16 05/30/16 Range/Units 19:00 19:00 19:00 WBC 5.9 (3.5-10.8) 10^3/ul RBC 4.39 (4.0-5.4) 10^6/ul Hgb 12.3 (12.0-16.0) g/dl Hct 37 (35-47) % MCV 85 (80-97) fL MCH 28 (27-31) pg MCHC 33 (31-36) g/dl RDW 17 H (10.5-15) % Plt Count 269 (150-450) 10^3/ul MPV Not Reportable Neut % (Auto) 86.7 H (38-83) % Lymph % (Auto) 9.5 L (25-47) % [place] % (Auto) 3.0 (1-9) % Eos % (Auto) 0.3 (0-6) % Baso % (Auto) 0.5 (0-2) % Absolute Neuts (auto) 5.1 (1.5-7.7) 10^3/ul Absolute Lymphs (auto) 0.6 L (1.0-4.8) 10^3/ul Absolute Monos (auto) 0.2 (0-0.8) 10^3/ul Absolute Eos (auto) 0 (0-0.6) 10^3/ul Absolute Basos (auto) 0 (0-0.2) 10^3/ul Absolute Nucleated RBC 0.01 10^3/ul Nucleated RBC % 0.1 Sodium 139 (133-145) mmol/L Potassium 4.1 (3.5-5.0) mmol/L Chloride 104 (101-111) mmol/L Carbon Dioxide 27 (22-32) mmol/L Anion Gap 8 (2-11) mmol/L BUN 7 (6-24) mg/dL Creatinine 0.59 (0.51-0.95) mg/dL Est GFR ( Amer) 138.2 (>60) Est GFR (Non-Af Amer) 107.5 (>60) BUN/Creatinine Ratio 11.9 (8-20) Glucose 127 H (70-100) mg/dL Lactic Acid 1.3 (0.5-2.0) mmol/L Calcium 9.7 (8.6-10.3) mg/dL Total Bilirubin 0.40 (0.2-1.0) mg/dL AST 17 (13-39) U/L ALT 24 (7-52) U/L Alkaline Phosphatase 124 H (34-104) U/L Troponin I 0.00 (<0.04) ng/mL C-Reactive Protein 3.93 (< 5.00) mg/L Total Protein 7.8 (6.4-8.9) g/dL Albumin 4.2 (3.2-5.2) g/dL Globulin 3.6 (2-4) g/dL Albumin/Globulin Ratio 1.2 (1-3) Lipase 15 (11.0-82.0) U/L Assess/Plan/Problems-Billing Assessment: - Patient Problems (1) Gastroenteritis Current Visit: Yes Status: Acute Code(s): K52.9 - NONINFECTIVE GASTROENTERITIS AND COLITIS, UNSPECIFIED SNOMED Code(s): 94334450 Comment: Probable viral etiology. She states she was fine the night before admission. She states she never had this before. Resolved. Reg diet. Discharge now. (2) Left leg DVT Current Visit: No Status: Acute Code(s): I82.402 - ACUTE EMBOLISM AND THOMBOS UNSP DEEP VEINS OF L LOW EXTREM SNOMED Code(s): 095047264 Comment: Continue Lovenox as per Dr. Anglin. She has been on this since 2015. (3) Fibromyalgia Current Visit: No Status: Acute Code(s): M79.7 - FIBROMYALGIA SNOMED Code( s): 230961076 Comment: Continue gabapentin, morphine ER. (4) HTN (hypertension) Current Visit: No Status: Acute Code(s): I10 - ESSENTIAL (PRIMARY) HYPERTENSION SNOMED Code(s): 46921355
[2016-05-31 13:15] VITALS: BP 115/68
[2016-05-31] MEDS ORDERED: Atorvastatin* 80 MG TAB PO SCH (17:00)
--- NOTE | 2016-06-01 00:48 | DS ---
CC: Dr. Anglin DISCHARGE SUMMARY: DATE OF ADMISSION: 05/30/16 DATE OF DISCHARGE: 05/31/16 HOSPITAL COURSE: This 51-year-old woman presented with nausea and vomiting. She really denies any pain. She was fine the night before she went to bed. When she woke up in the morning she had nause a and was vomiting. She did not vomit not 15 to 18 hours before the time of discharge. She felt we ll the following morning after being admitted. She will be given a regular meal before discharge. Her vital signs were stable. There were no unexpected lab results. I did not change any of her med ications. FINAL DIAGNOSES: 1. Gastroenteritis, probable viral origin, resolved. 2. Left leg deep vein thrombosis. 3. Fibromyalgia. 4. Hypertension. DISCHARGE MEDICATIONS: 1. Pantoprazole 40 mg daily. 2. Venlafaxine 300 mg daily. 3. Hydroxyzine 100 mg t.i.d. p.r.n. 4. Clopidogrel 75 mg daily. 5. Quetiapine 50 mg daily. 6. Amlodipine 5 mg daily. 7. Enoxaparin 80 mg subcu every 12 hours. 8. Atorvastatin 80 mg daily. 9. Metoprolol succinate 50 mg daily. 10. Nitroglycerin 0.4 mg sublingual every 5 minutes p.r.n. 11. Acetaminophen 650 mg every 4 hours p.r.n. 12. Gabapentin 400 mg every 4 hours. 13. Morphine extended release 15 mg every 12 hours. 14. Hydrocodone/acetaminophen 5/325 one every 4 hours p.r.n. [id number]/[facility] #: [id number]
== END 2016-05-31 15:10 | disposition home or self-care (01) ==
LOC: ED 18:05 → MEDTELE 22:13
PROVIDERS: ADMIT Internal Medicine; ATTEND Internal Medicine
DX: K52.9 Noninfective gastroenteritis and colitis, unspecified (principal); I82.4Z2 Acute embolism and thrombosis of unspecified deep veins of left distal lower extremity; M79.7 Fibromyalgia; K21.9 Gastro-esophageal reflux disease without esophagitis; I10 Essential (primary) hypertension; Z88.6 Allergy status to analgesic agent; Z88.1 Allergy status to other antibiotic agents; Z88.0 Allergy status to penicillin; F17.200 Nicotine dependence, unspecified, uncomplicated; F41.9 Anxiety disorder, unspecified
CPT/HCPCS: 36415; 80053; 81003; 83605; 83690; 84484; 85025; 86140; 93005; 96374; 96375; 99285; A9270-GY; G0378; J0360; J1650; J2060; J2270; J2405; J2765

== ENCOUNTER 2016-06-08 18:02 | Emergency (ER) | payer OTHER ==
[2016-06-08] MEDS ORDERED: NS 0.9% 1000 ML* 1,000 ML IV ONE (18:49)
[2016-06-08] MEDS ORDERED: Aspirin Low Dose CHEW TAB* 81 MG PO ONE (18:49)
--- NOTE | 2016-06-08 19:57 | RAD ---
INDICATION: Chest pain COMPARISON: Most recent comparison chest x-ray May 18, 2016 TECHNIQUE: Single AP portable view of the chest was obtained. FINDINGS: Image quality is compromised due to the relative inferiority of a portable chest x-ray. The heart and mediastinum exhibit normal size and contour. The lungs are grossly clear. There is no evidence of a large pleural effusion. Visualized bones are normal for the patient's age. IMPRESSION: No radiographic evidence for acute cardiopulmonary abnormality on this portable chest x-ray.
[2016-06-08 20:03] LABS: Hematocrit 33 % (35-47); Hemoglobin 10.9 g/dl (12.0-16.0); Mean Corpuscular HGB Conc 33 g/dl (31-36); Mean Corpuscular Hemoglobin 28 pg (27-31); Mean Corpuscular Volume 86 fL (80-97); Mean Platelet Volume 8 um3 (7.4-10.4); Red Blood Count 3.87 10^6/ul (4.0-5.4); Red Cell Distribution Width 17 % (10.5-15); White Blood Count 8.5 10^3/ul (3.5-10.8)
[2016-06-08] MEDS ORDERED: oxyCODONE/Acetamin 5/325 MG* TAB PO ONE (20:07)
[2016-06-08] MEDS ORDERED: Ondansetron INJ* 2 MG/ML VIAL IV ONE ×2 (20:07→21:43)
[2016-06-08 20:20] LABS: Albumin 3.4 g/dL (3.2-5.2); BUN/Creatinine Ratio 20.7 (8-20); Calcium 8.5 mg/dL (8.6-10.3); EGFR Non-African American 109.6 (>60); Magnesium 2.2 mg/dL (1.9-2.7); Total Bilirubin 0.2 mg/dL (0.2-1.0); Total Protein 6.4 g/dL (6.4-8.9)
[2016-06-08] MEDS ORDERED: Metoprolol Tartrate TAB* 25 MG PO ONE (20:57)
[2016-06-08] MEDS ORDERED: Nitroglycerin TAB 0.4 MG* 0.4 MG TAB SL ONE (20:57)
[2016-06-08 21:05] LABS: TSH (Thyroid Stimulating Horm) 0.8 mcIU/mL (0.34-5.60)
[2016-06-08] MEDS ORDERED: Ondansetron INJ* 2 MG/ML VIAL ONE (21:43)
[2016-06-08] MEDS ORDERED: Lidocaine 2% VISCOUS* 15 ML UDC PO ONE (22:12)
[2016-06-08] MEDS ORDERED: Al Hydrox/Mg Hydrox/Simet LIQ* 30 ML UDC PO ONE (22:12)
--- NOTE | 2016-06-08 22:17 | ED ---
Aida Sanchez SooYoung, scribed for Mor Bennett MD on 06/08/16 at 1850 . HPI Chest Pain - HPI Summary HPI Summary: A 51 y/o F presents to ED with c/o CP onset 1300. Describes the pain as tightness w/o radiation. She denies any dizziness or SOB. Positive vomiting all day prior to CP. She rates the pain as 7 out of 10. She took an aspirin with mild relief. Denies having a nitro. There is aggravating or relieving symptoms. She has no other complaints. She denies any abdominal pain diarrhea or constipation. - History of Current Complaint Chief Complaint: EDChestPainROMI Time Seen by Provider: 06/08/16 18:44 Hx Obtained From: Patient Onset/Duration: Started Hours Ago, Atraumatic, Still Present Current Severity: Moderate Pain Intensity: 7 Pain Scale Used: 0-10 Numeric Character: Tightness Alleviating Factor(s): OTC Meds - aspirin Associated Signs and Symptoms: Positive: Lightheadedness, Vomiting - Additional Pertinent History Primary Care Physician: [id number] - Allergy/Home Medications Allergies/Adverse Reactions: Allergies Allergy/AdvReac Type Severity Reaction Status Date / Time Aspirin Allergy Intermediate Hives Verified 05/22/16 10:02 Cyclobenzaprine Allergy Intermediate Difficulty Verified 05/22/16 10:02 [From Flexeril] Swallowing Ketorolac Tromethamine Allergy Intermediate Difficulty Verified 05/22/16 10:02 [From Toradol] Swallowing Clonazepam [From Klonopin] Allergy Mild Rash Verified 05/22/16 10:02 NSAIDs Allergy Mild Itching Verified 05/22/16 10:02 Penicillins [PCN] Allergy Mild Rash Verified 05/22/16 10:02 Topiramate [From Topamax] AdvReac Mild Headache Verified 05/22/16 10:02 Erythromycin AdvReac See Comment Verified 05/22/16 10:02 [email or web address] Allergy Severe Swelling Uncoded 05/18/16 11:58 Of Face,Lips,& Throat lidoderm Allergy Mild Rash Uncoded 05/18/16 11:58 tums AdvReac Mild Dizziness Uncoded 05/19/16 00:49 PMH/Surg Hx/FS Hx/Imm Hx Previously Healthy: No Endocrine/Hematology History: Reports: Hx Anticoagulant Therapy - lovenox, 4 months Denies: Hx Blood Disorders, Hx Blood Transfusions, Hx Bone Marrow Disease, Hx Diabetes, Hx Systemic Lupus Erythematosus, Hx Sickle Cell Disease, Hx Thyroid Disease, Hx Anemia, Hx Unexplained Bleeding Cardiovascular History: Reports: Hx Angina, Hx Deep Vein Thrombosis - 1993 left calf, Hx Syncope Denies: Hx Aneurysm, Hx Angioplasty, Hx Auto Implanted Cardiovert Defib, Hx Cardiac Arrest, Hx Cardiomegaly, Hx Congenital Heart Disease, Hx Congestive Heart Failure, Hx Coronary Artery Disease, Hx Embolism, Hx Hypercholesterolemia , Hx Hypotension, Hx Hypertension, Hx Myocardial Infarction, Hx Pacemaker/ICD, Hx Peripheral Vascular Disease, Hx Rheumatic Fever, Hx Valvular Heart Disease, Other Cardiovascular Problems/Disorders Respiratory History: Reports: Hx Pneumonia Denies: Hx Asthma, Hx Chronic Bronchitis, Hx Chronic Obstructive Pulmonary Disease (COPD), Hx Cystic Fibrosis, Hx Lung Cancer, Hx Pleural Effusion, Hx Pulmonary Edema, Hx Pulmonary Embolism, Hx Seasonal Allergies, Hx Sleep Apnea, Other Respiratory Problems/Disorders GI History: Reports: Hx Gall Bladder Disease - taken out 2012, Hx Gastroesophageal Reflux Disease, Hx Gastrointestinal Bleed Denies: Hx Cirrhosis, Hx Crohn's Disease, Hx Diverticulosis, Hx Hiatal Hernia , Hx Irritable Bowel, Hx Jaundice, Hx Obstructive Bowel, Hx Ileostomy, Hx Pyloric Stenosis, Hx Ulcer, Other GI Disorders History: Denies: Hx Acute Renal Failure, Hx Benign Prostatic Hyperplasia, Hx Chronic Renal Failure, Hx Dialysis, Hx Kidney Infection, Hx Kidney Stones, Hx Renal Disease, Other Problems/Disorders Musculoskeletal History: Reports: Hx Back Problems - chronic back pain, T4-T5 fusion, Hx Fibromyalgia - 2005 Denies: Hx Arthritis, Hx Bursitis, Hx Congenital Bone Abnormalities, Hx Gout , Hx Orthopedic Injury, Hx Osteoporosis, Hx Scoliosis, Hx Tendonitis Sensory History: Reports: Hx Contacts or Glasses - Reading Denies: Hx Cataracts, Hx Eye Injury, Hx Eye Prosthesis, Hx Glaucoma, Hx Legally Blind, Hx Macular Degeneration, Hx Vision Problem, Hx Deafness, Hx Hearing Aid, Hx Hearing Problem, Other Sensory Impairments Opthamlomology History: Reports: Hx Contacts or Glasses - Reading Denies: Hx Cataracts, Hx Eye Injury, Hx Eye Prosthesis, Hx Glaucoma, Hx Legally Blind, Hx Macular Degeneration, Hx Vision Problem, Other Sensory Impairments Neurological History: Reports: Hx Dementia, Hx Migraine, Hx Seizures, Other Neuro Impairments/Disorders - prev back surg, bells palsy, chronic back pain - L4-5 spinal fusion 2009 Denies: Hx Developmental Delay, Hx Headaches, Hx Nerve Disease, Hx Spinal Cord Injury, Hx Transient Ischemic Attacks (TIA) Psychiatric History: Reports: Hx Anxiety, Hx Depression Denies: Hx Attention Deficit Hyperactivity Disorder, Hx Eating Disorder, Hx Panic Disorder, Hx Post Traumatic Stress Disorder, Hx Inpatient Treatment, Hx Community Mental Health Tx, Hx Schizophrenia, Hx Bipolar Disorder, Hx Suicide Attempt, Hx of Violent Episodes Against Others, Hx Substance Abuse - Surgical History Surgery Procedure, Year, and Place[place] [facility] [place] [facility] [place] - 2009 [place]. TUBAL LIGATION 1997. Gall bladder 2012 Hx Anesthesia Reactions: No - Immunization History Date of Tetanus Vaccine: 04/27/15 Date of Influenza Vaccine: None Infectious Disease History: No Infectious Disease History: Denies: Hx Clostridium Difficile, Hx Hepatitis, Hx Human Immunodeficiency Virus (HIV), Hx of Known/Suspected MRSA, Hx Shingles, Hx Tuberculosis, Hx Known/ Suspected VRE, Hx Known/Suspected VRSA, History Other Infectious Disease, Traveled Outside the in Last 30 Days - Family History Known Family History: Positive: Cardiac Disease, Hypertension, Diabetes, Seizure Disorder - paternal, maternal, Other Family History: Mother alive in 60s with Hx of gallbladder CA, DVT. Father alive in 60s with Hx of CAD - Social History Occupation: Unemployed Lives: With Family Alcohol Use: None Hx Substance Use: No Substance Use Type: Reports: None Hx Tobacco Use: Yes Smoking Status (MU): Light Every Day Tobacco Smoker Type: Cigarettes Amount Used/How Often: 4 Cigarettes/DAY Have You Smoked in the Last Year: Yes Review of Systems Positive: Chest Pain Positive: Vomiting Neurological: Other - pos: lightheadedness All Other Systems Reviewed And Are Negative: Yes Physical Exam - Summary Physical Exam Summary: VITAL SIGNS: Reviewed. GENERAL: Patient is a well developed and nourished female who is lying comfortable in the stretcher. Patient is not in any acute respiratory distress. HEAD AND FACE: No signs of trauma. No ecchymosis, hematomas or skull depressions. No sinus tenderness. EYES: PERRLA, EOMI x 2, No injected conjunctiva, no nystagmus. EARS: Hearing grossly intact. Ear canals and tympanic membranes are within normal limits. MOUTH: Oropharynx within normal limits. NECK: Supple, trachea is midline, no adenopathy, no JVD, no carotid bruit, no c- spine tenderness, neck with full ROM. CHEST: Symmetric, no tenderness at palpation LUNGS: Clear to auscultation bilaterally. No wheezing or crackles. CVS: Regular rate and rhythm, S1 and S2 present, no murmurs or gallops appreciated. ABDOMEN: Soft, non-tender. No signs of distention. No rebound no guarding, and no masses palpated. Bowel sounds are normal. EXTREMITIES: FROM in all major joints, no edema, no cyanosis or clubbing. NEURO: Alert and oriented x 3. No acute neurological deficits. Speech is normal and follows commands. SKIN: Dry and warm Triage Information Reviewed: Yes Vital Signs On Initial Exam: Initial Vitals Temp Pulse Resp BP Pulse Ox 98.5 F 102 15 134/92 100 06/08/16 18:09 06/08/16 18:09 06/08/16 18:09 06/08/16 18:09 06/08/16 18:09 Vital Signs Reviewed: Yes Diagnostics - Vital Signs Vital Signs Temp Pulse Resp BP Pulse Ox 06/08/16 18:09 98.5 F 102 15 134/92 100 - Laboratory Result Diagrams: 06/08/16 19:55 06/08/16 19:55 Lab Statement: Any lab studies that have been ordered have been reviewed, and results considered in the medical decision making process. - Radiology CXR Xray Interpretation: No Acute Changes - IMPRESSION: No radioraphic evidence for acute cardiopulmonary abnormality on this portable chest XR. Radiology Interpretation Completed By: Radiologist - EKG 1 EKG Rhythm: Sinus Rhythm - [address] Segment: Normal Re-Evaluation - Re-Evaluation 1 Re-Evaluation Time: 21:37 Change: Improved Comment: Discussing results with pt. Pt states having no pain, no nausea. 2 Re-Evaluation Time: 22:04 Change: Worse Comment: Pt states having 4 to 5 out of 10 chest pain. Chest Pain Course/Dx - Course Assessment/Plan: A 51 y/o F presents to ED with c/o CP onset 1300. Describes the pain as tightness w/o radiation. She denies any dizziness or SOB. Positive vomiting all day prior to CP. She rates the pain as 7 out of 10. She took an aspirin with mild relief. Denies having a nitro. There is aggravating or relieving symptoms. She has no other complaints. She denies any abdominal pain diarrhea or constipation. Labs shows a decrease H/H 10.9 / 33. No bandemia. CXR: No acute cardiopulmonary pathology. EKG: NSR at BPM w/o PATEL. In the ED course she was given Zofran for nausea and vomiting, she was given nitroglycerin and lopressor for the chest pain. She continued to have CP therefore she was given one percocet as she requested for her Fibromyalgia. I review her records and she had a stress test on April 2016. Stress test was reviewed by Dr. Escobar from Cardiology and he reports its a low risk stress test w/o evidence of cardiac ischemia or infarction. ECHO showed an EF of 50 to 60 % . She reports nausea and vomiting therefore she was given Zofran. She continues with IV fluids. She reports no abdominal pain. Second EKG shows NSR at 99 BPM w/o PATEL. Patient reported initially that she was feeling better and after I discussed the findings and test results with the patient I was called back into her room reporting that the she developed again CP with nausea and vomiting. . Second EKG is unchanged. Second troponin is 0.00. I discussed the case with Dr. Temple who agreed to admit the patient to his services for further w/u and management. After patient was admitted she reported that she feels better and she wants go home. At this time I Instructed her that she will have to sign against medical advice. She agreed. I extensively discussed with the patient the benefits and risk of leaving AMA. I also discussed the alternatives to leaving AMA, however, the patient still insist to leave the hospital AMA.. The primary nurse and the charge nurse also strongly recommended that the patient should not leave AMA. Patient understands the risk of leaving AMA, which includes but is not restricted to . Patient is Alert and oriented times three and patient verbalizes understanding. Patient has full capacity and is cognitively intact. Patient signed the AMA form. Patient was also advised to return to ED if he changes his mind or if the symptoms worsen or other symptoms appear. Patient understands and agrees. - Chest Pain Differential Diagnosis/HQI/PQRI: ACS, Angina, CHF, Chest Wall, GI Disease, Lower Respiratory Infection - Diagnoses Provider Diagnoses: Chest pain - Provider Notifications Discussed Care Of Patient With: Dr. Temple, hospitalist, will admit pt Time Discussed With Above Provider: 22:05 Instructed by Provider To: Admit As Inpatient Discharge - Discharge Plan Condition: Stable Disposition: AGAINST MEDICAL ADVICE Patient Education Materials: Chest Pain (ED), Against Medical Advice (ED) Referrals: Shanda Anglin MD [Primary Care Provider] - The documentation as recorded by the Aida blanco SooYoung accurately reflects the service I personally performed and the decisions made by Donald wolff Walter, MD.
[2016-06-08 22:23] VITALS: BP 165/98
== END 2016-06-08 22:23 | disposition left against medical advice (07) ==
LOC: ED 18:02
DX: R07.9 Chest pain, unspecified (principal); R11.10 Vomiting, unspecified; F17.210 Nicotine dependence, cigarettes, uncomplicated
CPT/HCPCS: 36415; 71010; 80053; 82550; 82553; 83605; 83735; 83880; 84443; 84484; 85025; 93005; 96374; 99283; A9270-GY; J2405

== ENCOUNTER 2016-06-22 12:58 | Emergency (ER) | payer OTHER ==
[2016-06-22] MEDS ORDERED: Meclizine TAB* 12.5 MG PO ONE (13:18)
[2016-06-22] MEDS ORDERED: NS 0.9% 1000 ML* 2,000 ML IV ONE (13:18)
[2016-06-22] MEDS ORDERED: Ondansetron INJ* 2 MG/ML VIAL IV ONE (13:18)
[2016-06-22 14:08] VITALS: BP 134/100
--- NOTE | 2016-06-22 15:17 | RAD ---
INDICATION: Pain and swelling. COMPARISON: May 12, 2016 TECHNIQUE: Duplex interrogation of the Lowerextremity was performed. FINDINGS: Deep veins: The common femoral, great saphenous, profunda femoris, proximal, mid, and distal deep femoral, popliteal, posterior tibial, and peroneal veins were interrogated. The distal femoral vein through the tibial veins are noncompressible. There is nonocclusive chronic thrombus. Relative to the earlier examination it has been some recanalization of the tibial veins. The thrombus extends slightly more cephalad than noted previously into the distal femoral vein, however. There are no findings to suggest acute thrombus. Superficial veins: There are no findings of superficial thrombophlebitis. Popliteal fossa:There is no evidence of a popliteal cyst. Soft tissues:There are no soft tissue abnormalities. IMPRESSION: PARTIAL RECANALIZATION OF DEEP VENOUS THROMBOSIS WITH INVOLVING THE TIBIAL VEINS THROUGH THE DISTAL DEEP FEMORAL VEIN AT THE ADDUCTOR CANAL
[2016-06-22] MEDS ORDERED: Ondansetron ODT TAB* 4 MG PO ONE ×2 (16:00→19:33)
[2016-06-22] MEDS ORDERED: Morphine INJ* 4 MG/ML 1 ML CARPUJECT IV ONE (17:24)
[2016-06-22 17:29] LABS: Hematocrit 38 % (35-47); Hemoglobin 12.1 g/dl (12.0-16.0); Mean Corpuscular HGB Conc 32 g/dl (31-36); Mean Corpuscular Hemoglobin 28 pg (27-31); Mean Corpuscular Volume 86 fL (80-97); Mean Platelet Volume 8 um3 (7.4-10.4); Red Blood Count 4.38 10^6/ul (4.0-5.4); Red Cell Distribution Width 16 % (10.5-15); White Blood Count 5.9 10^3/ul (3.5-10.8)
[2016-06-22 18:07] LABS: Albumin 3.6 g/dL (3.2-5.2); BUN/Creatinine Ratio 11.9 (8-20); C Reactive Protein 4.73 mg/L (< 5.00); Calcium 8.9 mg/dL (8.6-10.3); EGFR African American 138.2 (>60); EGFR Non-African American 107.5 (>60); Globulin 3.1 g/dL (2-4); Magnesium 1.9 mg/dL (1.9-2.7); Potassium 3.7 mmol/L (3.5-5.0); Total Bilirubin 0.3 mg/dL (0.2-1.0); Total Protein 6.7 g/dL (6.4-8.9); Troponin I 0.01 ng/mL (<0.04)
[2016-06-22] MEDS ORDERED: Iohexol 350* (CONTRAST) 500 ML MDV IV ONE (18:42)
--- NOTE | 2016-06-22 19:06 | RAD ---
INDICATION: Dizziness when rapidly sitting up in bed COMPARISON: CT brain May 22, 2016; CT brain May 14, 2016 TECHNIQUE: Noncontrast axial source images were acquired from the skull base to the vertex. FINDINGS: Ventricles/sulci: The ventricles and cisterns are normal in size and configuration for age. Brain parenchyma: There is no focal parenchymal finding, evidence of intracranial mass, or intracranial mass effect. Intracranial hemorrhage:None. Extra-axial spaces: There are no abnormal extra axial fluid collections or evidence of extra-axial mass. Calvarium: There is no calvarial fracture or other calvarial abnormality. Scalp: There is no evidence of scalp or extracalvarial soft tissue abnormality. Paranasal sinuses/mastoid: The paranasal sinuses and mastoid air cells are clear. Other: None. IMPRESSION: NEGATIVE EXAMINATION UNCHANGED FROM RECENT EXAMINATIONS.
[2016-06-22 19:10] LABS: TSH (Thyroid Stimulating Horm) 0.54 mcIU/mL (0.34-5.60)
--- NOTE | 2016-06-22 19:14 | RAD ---
INDICATION: Chest pain. Short of breath. Evaluate for pulmonary embolus. COMPARISON: CTA chest May 14, 2016 TECHNIQUE: Axial source images were obtained from the thoracic inlet to the hemidiaphragms following administration of [address] angiographic technique was utilized. Coronal and sagittal reconstructed images were acquired. CHEST FINDINGS: Neck/thyroid: The visualized neck to include the thyroid appear normal. Chest wall: There are no acute abnormalities of the bony thorax or chest wall. There is no supraclavicular, infraclavicular, or axillary lymphadenopathy. Lungs : There are no pulmonary parenchymal masses or infiltrates. The pulmonary interstitium appears normal. There are no endobronchial lesions. Cardiomediastinal structures: There is no CT evidence of acute pulmonary embolic disease. The heart is normal in size. There is no pericardial effusion. There is no evidence of aortic aneurysm or dissection. There is no mediastinal or hilar adenopathy. The esophagus appears normal. Pleura : There are no pleural-based masses or effusions. Other: There is a large hiatal hernia with circumferential thickening of the distal esophagus. Consider esophagitis. Recommend upper endoscopy as indicated. There is cholecystectomy. IMPRESSION: No CT evidence of acute pulmonary embolic disease Large hiatal hernia with mucosal thickening of the distal esophagus. Consider endoscopic evaluation
[2016-06-22] MEDS ORDERED: oxyCODONE/Acetamin 5/325 MG* TAB PO ONE (19:32)
[2016-06-22] MEDS ORDERED: Omeprazole CAP* 20 MG PO ONE ×2 (19:38)
--- NOTE | 2016-06-22 19:48 | ED ---
Omi Sanchez Michael, scribed for Jelani Hurtado MD on 06/22/16 at 1329 . Syncope/Near Syncope - HPI Summary HPI Summary: 51 y/o female comes to the ED presenting with one syncopal episode this morning after she sat up from laying down. The pt reports that she woke up this morning at 0730 with dizziness and chest pain. She describes the dizziness as the room spinning. The pt also c/o generalized weakness. She denies WATERMAN, ear pain, vomiting, and SOB. The pt has a hx of dizziness and a DVT in the LLE with mild pain. She is currently on Plavix and Lovenox. - History Of Current Complaint Chief Complaint: EDSyncope Time Seen by Provider: 06/22/16 13:12 Hx Obtained From: Patient, Medical Records Onset/Duration: Sudden Onset Timing: Intermittent Episode Lasting Context: Unwitnessed, Loss Of Consciousness Activity At Onset: At Rest Associated Head Trauma: No Aggravating Factor(s): Position Change Alleviating Factor(s): Spontaneous Resolution Associated Signs And Symptoms: Negative - WATERMAN, ear pain, vomiting, and SOB, Dizzy , Weakness, Other - chest pain - Allergies/Home Medications Allergies/Adverse Reactions: Allergies Allergy/AdvReac Type Severity Reaction Status Date / Time Aspirin Allergy Intermediate Hives Verified 06/22/16 13:00 Cyclobenzaprine Allergy Intermediate Difficulty Verified 06/22/16 13:00 [From Flexeril] Swallowing Ketorolac Tromethamine Allergy Intermediate Difficulty Verified 06/22/16 13:00 [From Toradol] Swallowing Clonazepam [From Klonopin] Allergy Mild Rash Verified 06/22/16 13:00 NSAIDs Allergy Mild Itching Verified 06/22/16 13:00 Penicillins [PCN] Allergy Mild Rash Verified 06/22/16 13:00 Topiramate [From Topamax] AdvReac Mild Headache Verified 06/22/16 13:00 Erythromycin AdvReac See Comment Verified 06/22/16 13:00 [email or web address] Allergy Severe Swelling Uncoded 06/22/16 13:00 Of Face,Lips,& Throat lidoderm Allergy Mild Rash Uncoded 06/22/16 13:00 tums AdvReac Mild Dizziness Uncoded 06/22/16 13:00 PMH/Surg Hx/FS Hx/Imm Hx Endocrine/Hematology History: Reports: Hx Anticoagulant Therapy - lovenox, 4 months Denies: Hx Blood Disorders, Hx Blood Transfusions, Hx Bone Marrow Disease, Hx Diabetes, Hx Systemic Lupus Erythematosus, Hx Sickle Cell Disease, Hx Thyroid Disease, Hx Anemia, Hx Unexplained Bleeding Cardiovascular History: Reports: Hx Angina, Hx Deep Vein Thrombosis - 1993 left calf, Hx Syncope Denies: Hx Aneurysm, Hx Angioplasty, Hx Auto Implanted Cardiovert Defib, Hx Cardiac Arrest, Hx Cardiomegaly, Hx Congenital Heart Disease, Hx Congestive Heart Failure, Hx Coronary Artery Disease, Hx Embolism, Hx Hypercholesterolemia , Hx Hypotension, Hx Hypertension, Hx Myocardial Infarction, Hx Pacemaker/ICD, Hx Peripheral Vascular Disease, Hx Rheumatic Fever, Hx Valvular Heart Disease, Other Cardiovascular Problems/Disorders Respiratory History: Reports: Hx Pneumonia Denies: Hx Asthma, Hx Chronic Bronchitis, Hx Chronic Obstructive Pulmonary Disease (COPD), Hx Cystic Fibrosis, Hx Lung Cancer, Hx Pleural Effusion, Hx Pulmonary Edema, Hx Pulmonary Embolism, Hx Seasonal Allergies, Hx Sleep Apnea, Other Respiratory Problems/Disorders GI History: Reports: Hx Gall Bladder Disease - taken out 2012, Hx Gastroesophageal Reflux Disease, Hx Gastrointestinal Bleed Denies: Hx Cirrhosis, Hx Crohn's Disease, Hx Diverticulosis, Hx Hiatal Hernia , Hx Irritable Bowel, Hx Jaundice, Hx Obstructive Bowel, Hx Ileostomy, Hx Pyloric Stenosis, Hx Ulcer, Other GI Disorders History: Denies: Hx Acute Renal Failure, Hx Benign Prostatic Hyperplasia, Hx Chronic Renal Failure, Hx Dialysis, Hx Kidney Infection, Hx Kidney Stones, Hx Renal Disease, Other Problems/Disorders Musculoskeletal History: Reports: Hx Back Problems - chronic back pain, T4-T5 fusion, Hx Fibromyalgia - 2005 Denies: Hx Arthritis, Hx Bursitis, Hx Congenital Bone Abnormalities, Hx Gout , Hx Orthopedic Injury, Hx Osteoporosis, Hx Scoliosis, Hx Tendonitis Sensory History: Reports: Hx Contacts or Glasses - Reading Denies: Hx Cataracts, Hx Eye Injury, Hx Eye Prosthesis, Hx Glaucoma, Hx Legally Blind, Hx Macular Degeneration, Hx Vision Problem, Hx Deafness, Hx Hearing Aid, Hx Hearing Problem, Other Sensory Impairments Opthamlomology History: Reports: Hx Contacts or Glasses - Reading Denies: Hx Cataracts, Hx Eye Injury, Hx Eye Prosthesis, Hx Glaucoma, Hx Legally Blind, Hx Macular Degeneration, Hx Vision Problem, Other Sensory Impairments Neurological History: Reports: Hx Dementia, Hx Migraine, Hx Seizures, Other Neuro Impairments/Disorders - prev back surg, bells palsy, chronic back pain - L4-5 spinal fusion 2009 Denies: Hx Developmental Delay, Hx Headaches, Hx Nerve Disease, Hx Spinal Cord Injury, Hx Transient Ischemic Attacks (TIA) Psychiatric History: Reports: Hx Anxiety, Hx Depression Denies: Hx Attention Deficit Hyperactivity Disorder, Hx Eating Disorder, Hx Panic Disorder, Hx Post Traumatic Stress Disorder, Hx Inpatient Treatment, Hx Community Mental Health Tx, Hx Schizophrenia, Hx Bipolar Disorder, Hx Suicide Attempt, Hx of Violent Episodes Against Others, Hx Substance Abuse - Surgical History Surgery Procedure, Year, and Place: D&C-1987 [facility] [place]. - 1997 [facility] [place]. lumbar FUSION - 2009 [place]. TUBAL LIGATION 1997. Gall bladder 2012 Hx Anesthesia Reactions: No - Immunization History Date of Tetanus Vaccine: 04/27/15 Date of Influenza Vaccine: None Infectious Disease History: No Infectious Disease History: Denies: Hx Clostridium Difficile, Hx Hepatitis, Hx Human Immunodeficiency Virus (HIV), Hx of Known/Suspected MRSA, Hx Shingles, Hx Tuberculosis, Hx Known/ Suspected VRE, Hx Known/Suspected VRSA, History Other Infectious Disease, Traveled Outside the in Last 30 Days - Family History Known Family History: Positive: Cardiac Disease, Hypertension, Diabetes, Seizure Disorder - paternal, maternal, Other Family History: Mother alive in 60s with Hx of gallbladder CA, DVT. Father alive in 60s with Hx of CAD - Social History Occupation: Unemployed Lives: With Family Alcohol Use: None Hx Substance Use: No Substance Use Type: Reports: None Hx Tobacco Use: Yes Smoking Status (MU): Light Every Day Tobacco Smoker Type: Cigarettes Amount Used/How Often: 4 Cigarettes/DAY Have You Smoked in the Last Year: Yes Review of Systems Negative: Fever Negative: Ear Ache Positive: Chest Pain Negative: Shortness Of Breath Negative: Vomiting Neurological: Other - dizziness Positive: Weakness. Negative: Headache All Other Systems Reviewed And Are Negative: Yes Physical Exam Triage Information Reviewed: Yes Vital Signs On Initial Exam: Initial Vitals Temp Pulse Resp BP Pulse Ox 97.5 F 100 16 138/99 100 06/22/16 13:01 06/22/16 13:01 06/22/16 13:01 06/22/16 13:01 06/22/16 13:01 Vital Signs Reviewed: Yes Appearance: Positive: Well-Appearing, No Pain Distress Skin: Positive: Warm, Skin Color Reflects Adequate Perfusion, Dry Head/Face: Positive: Normal Head/Face Inspection Eyes: Positive: EOMI, WILLIAMS ENT: Positive: Other - possible clear fluid behind bilateral TMs Neck: Positive: Supple, Nontender Respiratory/Lung Sounds: Positive: Clear to Auscultation, Breath Sounds Present Cardiovascular: Positive: RRR Abdomen Description: Positive: Nontender, Soft Bowel Sounds: Positive: Present Musculoskeletal: Positive: Strength/ROM Intact, Other - mild left calf tenderness Neurological: Positive: Normal, Sensory/Motor Intact, Alert, Oriented to Person Place, Time Psychiatric: Positive: Affect/Mood Appropriate Diagnostics - Vital Signs Vital Signs Temp Pulse Resp BP Pulse Ox 06/22/16 13:01 97.5 F 100 16 138/99 100 - Laboratory Lab Results: Lab Results 06/22/16 06/22/16 06/22/16 Range/Units 17:20 17:20 17:20 WBC 5.9 (3.5-10.8) 10^3/ul RBC 4.38 (4.0-5.4) 10^6/ul Hgb 12.1 (12.0-16.0) g/dl Hct 38 (35-47) % MCV 86 (80-97) fL MCH 28 (27-31) pg MCHC 32 (31-36) g/dl RDW 16 H (10.5-15) % Plt Count 258 (150-450) 10^3/ul MPV 8 (7.4-10.4) um3 Neut % (Auto) 66.6 (38-83) % Lymph % (Auto) 25.3 (25-47) % [place] % (Auto) 5.2 (1-9) % Eos % (Auto) 2.0 (0-6) % Baso % (Auto) 0.9 (0-2) % Absolute Neuts (auto) 4.0 (1.5-7.7) 10^3/ul Absolute Lymphs (auto) 1.5 (1.0-4.8) 10^3/ul Absolute Monos (auto) 0.3 (0-0.8) 10^3/ul Absolute Eos (auto) 0.1 (0-0.6) 10^3/ul Absolute Basos (auto) 0.1 (0-0.2) 10^3/ul Absolute Nucleated RBC 0 10^3/ul Nucleated RBC % 0.1 INR (Anticoag Therapy) 1.05 (0.89-1.11) APTT 25.1 L (26.0-36.3) seconds Sodium 138 (133-145) mmol/L Potassium 3.7 (3.5-5.0) mmol/L Chloride 108 (101-111) mmol/L Carbon Dioxide 23 (22-32) mmol/L Anion Gap 7 (2-11) mmol/L BUN 7 (6-24) mg/dL Creatinine 0.59 (0.51-0.95) mg/dL Est GFR ( Amer) 138.2 (>60) Est GFR (Non-Af Amer) 107.5 (>60) BUN/Creatinine Ratio 11.9 (8-20) Glucose 92 (70-100) mg/dL Lactic Acid (0.5-2.0) mmol/L Calcium 8.9 (8.6-10.3) mg/dL Magnesium 1.9 (1.9-2.7) mg/dL Total Bilirubin 0.30 (0.2-1.0) mg/dL AST 16 (13-39) U/L ALT 12 (7-52) U/L Alkaline Phosphatase 91 (34-104) U/L Total Creatine Kinase 54 (10-223) U/L CK-MB (CK-2) 1.4 (0.6-6.3) ng/mL Troponin I 0.01 (<0.04) ng/mL C-Reactive Protein 4.73 (< 5.00) mg/L B-Natriuretic Peptide ( - 100) pg/mL Total Protein 6.7 (6.4-8.9) g/dL Albumin 3.6 (3.2-5.2) g/dL Globulin 3.1 (2-4) g/dL Albumin/Globulin Ratio 1.2 (1-3) Lipase 26 (11.0-82.0) U/L TSH 0.54 (0.34-5.60) mcIU/mL 06/22/16 06/22/16 Range/Units 17:20 17:20 WBC (3.5-10.8) 10^3/ul RBC (4.0-5.4) 10^6/ul Hgb (12.0-16.0) g/dl Hct (35-47) % MCV (80-97) fL MCH (27-31) pg MCHC (31-36) g/dl RDW (10.5-15) % Plt Count (150-450) 10^3/ul MPV (7.4-10.4) um3 Neut % (Auto) (38-83) % Lymph % (Auto) (25-47) % [place] % (Auto) (1-9) % Eos % (Auto) (0-6) % Baso % (Auto) (0-2) % Absolute Neuts (auto) (1.5-7.7) 10^3/ul Absolute Lymphs (auto) (1.0-4.8) 10^3/ul Absolute Monos (auto) (0-0.8) 10^3/ul Absolute Eos (auto) (0-0.6) 10^3/ul Absolute Basos (auto) (0-0.2) 10^3/ul Absolute Nucleated RBC 10^3/ul Nucleated RBC % INR (Anticoag Therapy) (0.89-1.11) APTT (26.0-36.3) seconds Sodium (133-145) mmol/L Potassium (3.5-5.0) mmol/L Chloride (101-111) mmol/L Carbon Dioxide (22-32) mmol/L Anion Gap (2-11) mmol/L BUN (6-24) mg/dL Creatinine (0.51-0.95) mg/dL Est GFR ( Amer) (>60) Est GFR (Non-Af Amer) (>60) BUN/Creatinine Ratio (8-20) Glucose (70-100) mg/dL Lactic Acid 0.7 (0.5-2.0) mmol/L Calcium (8.6-10.3) mg/dL Magnesium (1.9-2.7) mg/dL Total Bilirubin (0.2-1.0) mg/dL AST (13-39) U/L ALT (7-52) U/L Alkaline Phosphatase (34-104) U/L Total Creatine Kinase (10-223) U/L CK-MB (CK-2) (0.6-6.3) ng/mL Troponin I (<0.04) ng/mL C-Reactive Protein (< 5.00) mg/L B-Natriuretic Peptide 59 ( - 100) pg/mL Total Protein (6.4-8.9) g/dL Albumin (3.2-5.2) g/dL Globulin (2-4) g/dL Albumin/Globulin Ratio (1-3) Lipase (11.0-82.0) U/L TSH (0.34-5.60) mcIU/mL Result Diagrams: 06/22/16 17:20 06/22/16 17:20 Lab Statement: Any lab studies that have been ordered have been reviewed, and results considered in the medical decision making process. - CT Brain CT CT Interpretation: No Acute Changes CT Interpretation Completed By: Radiologist CTA Chest/Thorax CT Interpretation: Positive (See Comments) - No CT evidence of acute pulmonary embolic disease Large hiatal hernia with mucosal thickening of the distal esophagus. Consider endoscopic evaluation CT Interpretation Completed By: Radiologist - EKG EK EKG Rhythm: Sinus Rhythm - [address] Segment: Normal Ectopy: None - Additional Comments Diagnostic Additional Comments: Venous Doppler Study: Radiologist- PARTIAL RECANALIZATION OF DEEP VENOUS THROMBOSIS WITH INVOLVING THE TIBIAL VEINS THROUGH THE DISTAL DEEP FEMORAL VEIN AT THE ADDUCTOR CANAL Course/Dx Assessment/Plan: MECLIZINE DID NOT HELP WITH DIZZINESS. DISCUSSED RESULTS WITH PATIENT. SHE WONDERS IF BEING OUT OF HER PAIN MEDICATIONS IS GIVING HER DIZZINESS SX. PATIENT WAS UNAWARE OF HIATAL HERNIA AND WILL START PPI. HAS APPOINTMENT WITH PAIN CLINIC IN 2 WEEKS. DISCHARGE HOME STABLE. - Diagnoses Provider Diagnoses: Chest pain, Hiatal hernia, Dizziness, DVT (deep venous thrombosis) Discharge - Discharge Plan Condition: Stable Disposition: HOME Prescriptions: Omeprazole CAP* [Prilosec CAP* 20 MG] 20 mg PO BID #30 cap. Ondansetron ODT TAB* [Zofran Odt TAB*] 4 mg PO Q6H PRN #10 tab.odt PRN Reason: Nausea oxyCODONE/Acetamin 5/325 MG* [Percocet 5/325 TAB*] 1 tab PO Q4H PRN #20 tab MDD 6 PRN Reason: Pain Patient Education Materials: Chest Pain (ED), Hiatal Hernia (ED), Leg Pain (ED) Referrals: Shanda Anglin MD [Primary Care Provider] - Additional Instructions: FOLLOW UP WITH YOUR PRIMARY CARE DOCTOR AND THE PAIN CLINIC. RETURN TO THE EMERGENCY DEPARTMENT FOR ANY WORSENING OF YOUR CONDITION; PAIN, SHORTNESS OF BREATH, YOU FEEL ILL OR QUESTIONS OR CONCERNS. The documentation as recorded by the Omi blanco Michael accurately reflects the service I personally performed and the decisions made by me, Jelani Hurtado MD.
== END 2016-06-22 20:05 | disposition home or self-care (01) ==
LOC: ED 12:58
DX: R07.9 Chest pain, unspecified (principal); K44.9 Diaphragmatic hernia without obstruction or gangrene; I82.4Z2 Acute embolism and thrombosis of unspecified deep veins of left distal lower extremity; F03.90 Unspecified dementia, unspecified severity, without behavioral disturbance, psychotic disturbance, mood disturbance, and anxiety; F17.210 Nicotine dependence, cigarettes, uncomplicated; Z88.0 Allergy status to penicillin; Z79.01 Long term (current) use of anticoagulants; Z86.718 Personal history of other venous thrombosis and embolism; Z79.02 Long term (current) use of antithrombotics/antiplatelets; Z88.6 Allergy status to analgesic agent
CPT/HCPCS: 36415; 70450; 71275; 80053; 82550; 82553; 83605; 83690; 83735; 83880; 84443; 84484; 85025; 85610; 85730; 86140; 93005; 96360; 96374; 96375; 96376; 99284; A9270-GY; J2270; Q9967

== ENCOUNTER 2016-06-24 00:13 | Emergency (ER) | payer OTHER ==
--- NOTE | 2016-06-24 01:33 | ED ---
Marcus Sanchez Erika, scribed for Clive Walter MD on 06/24/16 at 0056 . HPI Chest Pain - HPI Summary HPI Summary: Patient is a 51-year-old female presenting to the ED with a CC of chest tightness for the past 4 days. Patient also notes a spinning dizziness, which is aggravated by closing her eyes, and vomiting 1x today. Patient was seen here for the same complaint on 06/22/2016, and was discharged home with follow up from her PCP. She states she returned because the same symptoms worsened, and reports she cannot see her PCP until 06/26/2016. Hx hiatal hernia. Pt reports she has never had these symptoms before 4 days ago. - History of Current Complaint Chief Complaint: ED Time Seen by Provider: 06/24/16 00:31 Hx Obtained From: Patient Onset/Duration: Started Days Ago, Atraumatic, Still Present Timing: Constant Initial Severity: Mild Current Severity: Moderate Pain Intensity: 8 Pain Scale Used: 0-10 Numeric Character: Tightness Alleviating Factor(s): Nothing Associated Signs and Symptoms: Positive: Dizziness - Additional Pertinent History Primary Care Physician: [id number] - Allergy/Home Medications Allergies/Adverse Reactions: Allergies Allergy/AdvReac Type Severity Reaction Status Date / Time Aspirin Allergy Intermediate Hives Verified 06/22/16 13:00 Cyclobenzaprine Allergy Intermediate Difficulty Verified 06/22/16 13:00 [From Flexeril] Swallowing Ketorolac Tromethamine Allergy Intermediate Difficulty Verified 06/22/16 13:00 [From Toradol] Swallowing Clonazepam [From Klonopin] Allergy Mild Rash Verified 06/22/16 13:00 NSAIDs Allergy Mild Itching Verified 06/22/16 13:00 Penicillins [PCN] Allergy Mild Rash Verified 06/22/16 13:00 Topiramate [From Topamax] AdvReac Mild Headache Verified 06/22/16 13:00 Erythromycin AdvReac See Comment Verified 06/22/16 13:00 [place] Allergy Severe Swelling Uncoded 06/22/16 13:00 Of Face,Lips,& Throat lidoderm Allergy Mild Rash Uncoded 06/22/16 13:00 tums AdvReac Mild Dizziness Uncoded 06/22/16 13:00 PMH/Surg Hx/FS Hx/Imm Hx Endocrine/Hematology History: Reports: Hx Anticoagulant Therapy - lovenox, 4 months Cardiovascular History: Reports: Hx Angina, Hx Deep Vein Thrombosis - 1993 left calf, Hx Syncope Respiratory History: Reports: Hx Pneumonia GI History: Reports: Hx Gall Bladder Disease - taken out 2012, Hx Gastroesophageal Reflux Disease, Hx Gastrointestinal Bleed Musculoskeletal History: Reports: Hx Back Problems - chronic back pain, T4-T5 fusion, Hx Fibromyalgia - 2005 Sensory History: Reports: Hx Contacts or Glasses - Reading Opthamlomology History: Reports: Hx Contacts or Glasses - Reading Neurological History: Reports: Hx Dementia, Hx Migraine, Hx Seizures, Other Neuro Impairments/Disorders - prev back surg, bells palsy, chronic back pain - L4-5 spinal fusion 2009 Psychiatric History: Reports: Hx Anxiety, Hx Depression - Surgical History Surgery Procedure, Year, and Place: D&C-1987 [facility] – [place]. - 1997 [facility] [place]. lumbar FUSION - 2009 [place]. TUBAL LIGATION 1997. Gall bladder 2012 Hx Anesthesia Reactions: No - Immunization History Date of Tetanus Vaccine: 04/27/15 Date of Influenza Vaccine: None Infectious Disease History: No Infectious Disease History: Denies: Hx Clostridium Difficile, Hx Hepatitis, Hx Human Immunodeficiency Virus (HIV), Hx of Known/Suspected MRSA, Hx Shingles, Hx Tuberculosis, Hx Known/ Suspected VRE, Hx Known/Suspected VRSA, History Other Infectious Disease, Traveled Outside the [place] in Last 30 Days - Family History Known Family History: Positive: Cardiac Disease, Hypertension, Diabetes, Seizure Disorder - paternal, maternal, Other Family History: Mother alive in 60s with Hx of gallbladder CA, DVT. Father alive in 60s with Hx of CAD - Social History Alcohol Use: None Hx Substance Use: No Substance Use Type: Reports: None Hx Tobacco Use: Yes Smoking Status (MU): Light Every Day Tobacco Smoker Type: Cigarettes Amount Used/How Often: 4 Cigarettes/DAY Have You Smoked in the Last Year: Yes Review of Systems Positive: Chest Pain Neurological: Other - dizziness All Other Systems Reviewed And Are Negative: Yes Physical Exam Triage Information Reviewed: Yes Vital Signs On Initial Exam: Initial Vitals Temp Pulse Resp BP Pulse Ox 97.3 F 111 16 145/96 98 06/24/16 00:15 06/24/16 00:15 06/24/16 00:15 06/24/16 00:15 06/24/16 00:15 Vital Signs Reviewed: Yes Appearance: Positive: Well-Appearing, No Pain Distress Skin: Positive: Warm Eyes: Positive: WILLIAMS ENT: Positive: Hearing grossly normal Neck: Positive: Supple Respiratory/Lung Sounds: Positive: Clear to Auscultation, Breath Sounds Present Cardiovascular: Positive: RRR. Negative: Murmur Abdomen Description: Positive: Nontender, Soft Bowel Sounds: Positive: Present Musculoskeletal: Positive: Strength/ROM Intact Neurological: Positive: Sensory/Motor Intact, Alert, Oriented to Person Place, Time, Normal Gait Psychiatric: Positive: Affect/Mood Appropriate Diagnostics - Vital Signs Vital Signs Temp Pulse Resp BP Pulse Ox 06/24/16 00:15 97.3 F 111 16 145/96 98 - Laboratory Lab Statement: Any lab studies that have been ordered have been reviewed, and results considered in the medical decision making process. - EKG 00:32 Cardiac Rate: Tachycardia - at 109 bpm EKG Rhythm: Sinus Tachycardia Chest Pain Course/Dx - Course Assessment/Plan: A 51 y/o F presents to the ED with a CC of dizziness and chest tightness. Patient was seen in the ED for the same complaint 2 days ago, and had a negative work up. Today, EKG shows sinus tachycardia. Patient was observed in the ED, and will be discharged home with follow up from her PCP. - Diagnoses Provider Diagnoses: Chest pain Discharge - Discharge Plan Condition: Stable Disposition: HOME Patient Education Materials: Dizziness (ED) Referrals: Shanda Anglin MD [Primary Care Provider] - Additional Instructions: Please follow up with your PCP The documentation as recorded by the Marcus blanco Erika accurately reflects the service I personally performed and the decisions made by , Clive Walter MD.
[2016-06-24 01:41] VITALS: BP 105/66
== END 2016-06-24 01:56 | disposition home or self-care (01) ==
LOC: ED 00:13
DX: R07.89 Other chest pain (principal); F17.210 Nicotine dependence, cigarettes, uncomplicated; Z79.01 Long term (current) use of anticoagulants; Z86.718 Personal history of other venous thrombosis and embolism; F03.90 Unspecified dementia, unspecified severity, without behavioral disturbance, psychotic disturbance, mood disturbance, and anxiety; Z88.6 Allergy status to analgesic agent; Z88.0 Allergy status to penicillin
CPT/HCPCS: 93005; 99282

== ENCOUNTER 2016-07-02 01:30 | Emergency (ER) | payer OTHER ==
[2016-07-02 02:57] LABS: Hematocrit 35 % (35-47); Hemoglobin 11.8 g/dl (12.0-16.0); Mean Corpuscular HGB Conc 34 g/dl (31-36); Mean Corpuscular Hemoglobin 29 pg (27-31); Mean Corpuscular Volume 85 fL (80-97); Mean Platelet Volume 9 um3 (7.4-10.4); Red Blood Count 4.15 10^6/ul (4.0-5.4); Red Cell Distribution Width 15 % (10.5-15); White Blood Count 7.8 10^3/ul (3.5-10.8)
[2016-07-02 03:01] LABS: Add Diff/Slide Review? Slide Review Added; Comments Flag Yes
[2016-07-02 03:13] LABS: BUN/Creatinine Ratio 15.3 (8-20); Calcium 9.3 mg/dL (8.6-10.3); EGFR African American 90.7 (>60); EGFR Non-African American 70.5 (>60)
[2016-07-02 03:15] LABS: Troponin I 0.01 ng/mL (<0.04)
--- NOTE | 2016-07-02 03:27 | ED ---
Wilton Sanchez Adam, scribed for Clive Walter MD on 07/02/16 at 0142 . HPI Chest Pain - HPI Summary HPI Summary: Pt is a 51 year old female presenting with CP. She states that it set on at 01: 00 this morning, waking her up from sleep. She describes the pain as a tightness. She has had this pain before. She took ASA which is what she usually takes. The pain is improved after the ASA, currently a 7/10. She last saw her PCP about 1 week ago. - History of Current Complaint Time Seen by Provider: 07/02/16 01:35 Hx Obtained From: Patient Onset/Duration: Started Minutes Ago, Atraumatic, Still Present Timing: Constant Initial Severity: Moderate Current Severity: Mild Pain Intensity: 7 Pain Scale Used: 0-10 Numeric Chest Pain Location: Diffuse Chest Pain Radiates: No Character: Tightness Aggravating Factor(s): Nothing Alleviating Factor(s): OTC Meds - ASA Associated Signs and Symptoms: Positive: Negative - Additional Pertinent History Primary Care Physician: [id number] - Allergy/Home Medications Allergies/Adverse Reactions: Allergies Allergy/AdvReac Type Severity Reaction Status Date / Time Aspirin Allergy Intermediate Hives Verified 06/22/16 13:00 Cyclobenzaprine Allergy Intermediate Difficulty Verified 06/22/16 13:00 [From Flexeril] Swallowing Ketorolac Tromethamine Allergy Intermediate Difficulty Verified 06/22/16 13:00 [From Toradol] Swallowing Clonazepam [From Klonopin] Allergy Mild Rash Verified 06/22/16 13:00 NSAIDs Allergy Mild Itching Verified 06/22/16 13:00 Penicillins [PCN] Allergy Mild Rash Verified 06/22/16 13:00 Topiramate [From Topamax] AdvReac Mild Headache Verified 06/22/16 13:00 Erythromycin AdvReac See Comment Verified 06/22/16 13:00 teller Allergy Severe Swelling Uncoded 06/22/16 13:00 Of Face,Lips,& Throat lidoderm Allergy Mild Rash Uncoded 06/22/16 13:00 tums AdvReac Mild Dizziness Uncoded 06/22/16 13:00 PMH/Surg Hx/FS Hx/Imm Hx Endocrine/Hematology History: Reports: Hx Anticoagulant Therapy - lovenox, 4 months Denies: Hx Blood Disorders, Hx Blood Transfusions, Hx Bone Marrow Disease, Hx Diabetes, Hx Systemic Lupus Erythematosus, Hx Sickle Cell Disease, Hx Thyroid Disease, Hx Anemia, Hx Unexplained Bleeding Cardiovascular History: Reports: Hx Angina, Hx Deep Vein Thrombosis - 1993 left calf, Hx Syncope Denies: Hx Aneurysm, Hx Angioplasty, Hx Auto Implanted Cardiovert Defib, Hx Cardiac Arrest, Hx Cardiomegaly, Hx Congenital Heart Disease, Hx Congestive Heart Failure, Hx Coronary Artery Disease, Hx Embolism, Hx Hypercholesterolemia , Hx Hypotension, Hx Hypertension, Hx Myocardial Infarction, Hx Pacemaker/ICD, Hx Peripheral Vascular Disease, Hx Rheumatic Fever, Hx Valvular Heart Disease, Other Cardiovascular Problems/Disorders Respiratory History: Reports: Hx Pneumonia Denies: Hx Asthma, Hx Chronic Bronchitis, Hx Chronic Obstructive Pulmonary Disease (COPD), Hx Cystic Fibrosis, Hx Lung Cancer, Hx Pleural Effusion, Hx Pulmonary Edema, Hx Pulmonary Embolism, Hx Seasonal Allergies, Hx Sleep Apnea, Other Respiratory Problems/Disorders GI History: Reports: Hx Gall Bladder Disease - taken out 2012, Hx Gastroesophageal Reflux Disease, Hx Gastrointestinal Bleed Denies: Hx Cirrhosis, Hx Crohn's Disease, Hx Diverticulosis, Hx Hiatal Hernia , Hx Irritable Bowel, Hx Jaundice, Hx Obstructive Bowel, Hx Ileostomy, Hx Pyloric Stenosis, Hx Ulcer, Other GI Disorders History: Denies: Hx Acute Renal Failure, Hx Benign Prostatic Hyperplasia, Hx Chronic Renal Failure, Hx Dialysis, Hx Kidney Infection, Hx Kidney Stones, Hx Renal Disease, Other Problems/Disorders Musculoskeletal History: Reports: Hx Back Problems - chronic back pain, T4-T5 fusion, Hx Fibromyalgia - 2005 Denies: Hx Arthritis, Hx Bursitis, Hx Congenital Bone Abnormalities, Hx Gout , Hx Orthopedic Injury, Hx Osteoporosis, Hx Scoliosis, Hx Tendonitis Sensory History: Reports: Hx Contacts or Glasses - Reading Denies: Hx Cataracts, Hx Eye Injury, Hx Eye Prosthesis, Hx Glaucoma, Hx Legally Blind, Hx Macular Degeneration, Hx Vision Problem, Hx Deafness, Hx Hearing Aid, Hx Hearing Problem, Other Sensory Impairments Opthamlomology History: Reports: Hx Contacts or Glasses - Reading Denies: Hx Cataracts, Hx Eye Injury, Hx Eye Prosthesis, Hx Glaucoma, Hx Legally Blind, Hx Macular Degeneration, Hx Vision Problem, Other Sensory Impairments Neurological History: Reports: Hx Dementia, Hx Migraine, Hx Seizures, Other Neuro Impairments/Disorders - prev back surg, bells palsy, chronic back pain - L4-5 spinal fusion 2009 Denies: Hx Developmental Delay, Hx Headaches, Hx Nerve Disease, Hx Spinal Cord Injury, Hx Transient Ischemic Attacks (TIA) Psychiatric History: Reports: Hx Anxiety, Hx Depression Denies: Hx Attention Deficit Hyperactivity Disorder, Hx Eating Disorder, Hx Panic Disorder, Hx Post Traumatic Stress Disorder, Hx Inpatient Treatment, Hx Community Mental Health Tx, Hx Schizophrenia, Hx Bipolar Disorder, Hx Suicide Attempt, Hx of Violent Episodes Against Others, Hx Substance Abuse - Surgical History Surgery Procedure, Year, and Place: D&C-1987 [facility] [place]. - 1997 [facility] [place]. lumbar FUSION - 2009 [place]. TUBAL LIGATION 1997. Gall bladder 2012 Hx Anesthesia Reactions: No - Immunization History Date of Tetanus Vaccine: 04/27/15 Date of Influenza Vaccine: None Infectious Disease History: Denies: Hx Clostridium Difficile, Hx Hepatitis, Hx Human Immunodeficiency Virus (HIV), Hx of Known/Suspected MRSA, Hx Shingles, Hx Tuberculosis, Hx Known/ Suspected VRE, Hx Known/Suspected VRSA, History Other Infectious Disease - Family History Known Family History: Positive: Cardiac Disease, Hypertension, Diabetes, Seizure Disorder - paternal, maternal, Other Family History: Mother alive in 60s with Hx of gallbladder CA, DVT. Father alive in 60s with Hx of CAD - Social History Occupation: Unemployed Lives: With Family - Mother Alcohol Use: None Hx Substance Use: No Substance Use Type: Reports: None Hx Tobacco Use: Yes Smoking Status (MU): Light Every Day Tobacco Smoker Type: Cigarettes Amount Used/How Often: 4 Cigarettes/DAY Have You Smoked in the Last Year: Yes Review of Systems Negative: Fever Positive: Chest Pain All Other Systems Reviewed And Are Negative: Yes Physical Exam Triage Information Reviewed: Yes Vital Signs On Initial Exam: Initial Vitals Temp Pulse Resp BP Pulse Ox 98.2 F 77 16 108/63 97 07/02/16 01:38 07/02/16 01:38 07/02/16 01:38 07/02/16 01:38 07/02/16 01:38 Vital Signs Reviewed: Yes Appearance: Positive: Well-Appearing, No Pain Distress Skin: Positive: Warm Eyes: Positive: WILLIAMS Neck: Positive: Supple Respiratory/Lung Sounds: Positive: Clear to Auscultation, Breath Sounds Present Cardiovascular: Positive: RRR. Negative: Murmur Abdomen Description: Positive: Nontender, Soft Bowel Sounds: Positive: Present Musculoskeletal: Positive: Strength/ROM Intact Neurological: Positive: Alert, Oriented to Person Place, Time Diagnostics - Vital Signs Vital Signs Temp Pulse Resp BP Pulse Ox 07/02/16 02:30 68 15 141/105 97 07/02/16 02:19 73 15 99 07/02/16 02:17 132/104 07/02/16 01:38 98.2 F 77 16 108/63 97 - Laboratory Lab Results: Lab Results 07/02/16 07/02/16 Range/Units 02:41 02:41 WBC 7.8 (3.5-10.8) 10^3/ul RBC 4.15 (4.0-5.4) 10^6/ul Hgb 11.8 L (12.0-16.0) g/dl Hct 35 (35-47) % MCV 85 (80-97) fL MCH 29 (27-31) pg MCHC 34 (31-36) g/dl RDW 15 (10.5-15) % Plt Count 291 (150-450) 10^3/ul MPV 9 (7.4-10.4) um3 Neut % (Auto) 62.2 (38-83) % Lymph % (Auto) 26.0 (25-47) % [place] % (Auto) 8.3 (1-9) % Eos % (Auto) 2.4 (0-6) % Baso % (Auto) 1.1 (0-2) % Absolute Neuts (auto) 4.9 (1.5-7.7) 10^3/ul Absolute Lymphs (auto) 2.0 (1.0-4.8) 10^3/ul Absolute Monos (auto) 0.6 (0-0.8) 10^3/ul Absolute Eos (auto) 0.2 (0-0.6) 10^3/ul Absolute Basos (auto) 0.1 (0-0.2) 10^3/ul Absolute Nucleated RBC 0 10^3/ul Nucleated RBC % 0 Sodium 134 (133-145) mmol/L Potassium 4.0 (3.5-5.0) mmol/L Chloride 106 (101-111) mmol/L Carbon Dioxide 25 (22-32) mmol/L Anion Gap 3 (2-11) mmol/L BUN 13 (6-24) mg/dL Creatinine 0.85 (0.51-0.95) mg/dL Est GFR ( Amer) 90.7 (>60) Est GFR (Non-Af Amer) 70.5 (>60) BUN/Creatinine Ratio 15.3 (8-20) Glucose 89 (70-100) mg/dL Calcium 9.3 (8.6-10.3) mg/dL Troponin I 0.01 (<0.04) ng/mL Result Diagrams: 07/02/16 02:41 07/02/16 02:41 Lab Statement: Any lab studies that have been ordered have been reviewed, and results considered in the medical decision making process. - EKG 01:50 Cardiac Rate: NL - 73 BPM EKG Rhythm: Sinus Rhythm - Normal - Additional Comments Diagnostic Additional Comments: Troponin I - 0.01 Re-Evaluation - Re-Evaluation First Eval Change: Improved Chest Pain Course/Dx - Diagnoses Provider Diagnoses: Chest pain Discharge - Discharge Plan Condition: Stable Disposition: HOME Patient Education Materials: Chest Pain (ED) Referrals: Shanda Anglin MD [Primary Care Provider] - Additional Instructions: Follow up with Dr. Anglin. The documentation as recorded by the Wilton blanco Adam accurately reflects the service I personally performed and the decisions made by Saba wolff David, MD.
[2016-07-02 03:33] VITALS: BP 103/75
== END 2016-07-02 03:28 | disposition home or self-care (01) ==
LOC: ED 01:30
DX: R07.9 Chest pain, unspecified (principal); F17.210 Nicotine dependence, cigarettes, uncomplicated
CPT/HCPCS: 36415; 80048; 84484; 85025; 93005; 99283

== ENCOUNTER 2016-07-03 06:59 | Emergency (ER) | payer OTHER ==
[2016-07-03] MEDS ORDERED: Ondansetron INJ* 2 MG/ML VIAL IV ONE (07:37)
[2016-07-03] MEDS ORDERED: Famotidine IV* 10 MG/ML 2 ML (20 mg) IV ONE (07:37)
[2016-07-03] MEDS ORDERED: NS 0.9% 1000 ML* 1,000 ML IV ONE (07:37)
--- NOTE | 2016-07-03 08:37 | RAD ---
Indication: Severe abdominal pain, nausea, vomiting. Comparison: May 22, 2016 CT. Technique: Supine and LEFT lateral decubitus views of the abdomen. Report: Very large volume of stool present throughout the colon. No suggestion of sigmoid or cecal volvulus. No dilated small bowel loops evident to indicate obstruction. Negative for free air. No suspicious calcifications or mass effect. LEFT common iliac artery stent noted. Gallbladder fossa surgical clips. Postsurgical change of L5-S1 posterior fusion. IMPRESSION: Very large burden of stool throughout the colon. No evidence for bowel obstruction or free air.
[2016-07-03 09:26] LABS: Troponin I 0.01 ng/mL (<0.04)
[2016-07-03 09:47] LABS: Albumin 4.1 g/dL (3.2-5.2); C Reactive Protein 2.37 mg/L (< 5.00); Globulin 2.9 g/dL (2-4); Total Bilirubin 0.3 mg/dL (0.2-1.0)
[2016-07-03 09:57] LABS: Hematocrit 38 % (35-47); Hemoglobin 12.4 g/dl (12.0-16.0); Mean Corpuscular HGB Conc 33 g/dl (31-36); Mean Corpuscular Hemoglobin 28 pg (27-31); Mean Corpuscular Volume 85 fL (80-97); Mean Platelet Volume 10 um3 (7.4-10.4); Red Blood Count 4.46 10^6/ul (4.0-5.4); Red Cell Distribution Width 16 % (10.5-15); White Blood Count 7.5 10^3/ul (3.5-10.8)
[2016-07-03 10:00] LABS: BUN/Creatinine Ratio 21.8 (8-20); Calcium 9.1 mg/dL (8.6-10.3); EGFR African American 149.9 (>60); EGFR Non-African American 116.5 (>60); Magnesium 1.9 mg/dL (1.9-2.7); Potassium 3.7 mmol/L (3.5-5.0)
[2016-07-03 10:30] LABS: Urine Bacteria Absent (Absent); Urine Bilirubin Negative (Negative); Urine Glucose Negative (Negative); Urine Nitrite Negative (Negative)
[2016-07-03] MEDS ORDERED: Morphine INJ* 4 MG/ML 1 ML CARPUJECT IV ONE (10:37)
[2016-07-03 10:52] VITALS: BP 148/84
--- NOTE | 2016-07-03 12:13 | ED ---
Palma Sanchez Alok, scribed for Mor Bennett MD on 07/03/16 at 0813 . Abdominal Pain/Female - HPI Summary HPI Summary: 51 y/o female presents to the ED with epigastric pain described as a stomach aching beginning last night. Pt states her pain registers at a 4 out of 10 in severity and denies radiation of pain to other parts of the body. Pt states that nothing alleviate nor aggravates her symptoms. Pt states she has had a hiatal hernia for the last few months. Pt denies any other pertinent PMHx at this time. - History of Current Complaint Chief Complaint: EDAbdPain Stated Complaint: ABD PAIN Time Seen by Provider: 07/03/16 07:19 Hx Obtained From: Patient Hx Last Menstrual Period: 51 Y/O FEMALE ?: No Onset/Duration: Gradual Onset, Lasting Hours, Still Present Timing: Constant Severity Initially: Moderate Severity Currently: Moderate Pain Intensity: 4 Pain Scale Used: 0-10 Numeric Location: Epigastric Radiates: No Character: Other: - aching Aggravating Factor(s): Nothing Alleviating Factor(s): Nothing Associated Signs and Symptoms: Positive: Negative Allergies/Adverse Reactions: Allergies Allergy/AdvReac Type Severity Reaction Status Date / Time Aspirin Allergy Intermediate Hives Verified 06/22/16 13:00 Cyclobenzaprine Allergy Intermediate Difficulty Verified 06/22/16 13:00 [From Flexeril] Swallowing Ketorolac Tromethamine Allergy Intermediate Difficulty Verified 06/22/16 13:00 [From Toradol] Swallowing Clonazepam [From Klonopin] Allergy Mild Rash Verified 06/22/16 13:00 NSAIDs Allergy Mild Itching Verified 06/22/16 13:00 Penicillins [PCN] Allergy Mild Rash Verified 06/22/16 13:00 Topiramate [From Topamax] AdvReac Mild Headache Verified 06/22/16 13:00 Erythromycin AdvReac See Comment Verified 06/22/16 13:00 [email or web address] Allergy Severe Swelling Uncoded 06/22/16 13:00 Of Face,Lips,& Throat lidoderm Allergy Mild Rash Uncoded 06/22/16 13:00 tums AdvReac Mild Dizziness Uncoded 06/22/16 13:00 PMH/Surg Hx/FS Hx/Imm Hx Endocrine/Hematology History: Reports: Hx Anticoagulant Therapy - lovenox, 4 months Denies: Hx Blood Disorders, Hx Blood Transfusions, Hx Bone Marrow Disease, Hx Diabetes, Hx Systemic Lupus Erythematosus, Hx Sickle Cell Disease, Hx Thyroid Disease, Hx Anemia, Hx Unexplained Bleeding Cardiovascular History: Reports: Hx Angina, Hx Deep Vein Thrombosis - 1993 left calf, Hx Syncope Denies: Hx Aneurysm, Hx Angioplasty, Hx Auto Implanted Cardiovert Defib, Hx Cardiac Arrest, Hx Cardiomegaly, Hx Congenital Heart Disease, Hx Congestive Heart Failure, Hx Coronary Artery Disease, Hx Embolism, Hx Hypercholesterolemia , Hx Hypotension, Hx Hypertension, Hx Myocardial Infarction, Hx Pacemaker/ICD, Hx Peripheral Vascular Disease, Hx Rheumatic Fever, Hx Valvular Heart Disease, Other Cardiovascular Problems/Disorders Respiratory History: Reports: Hx Pneumonia Denies: Hx Asthma, Hx Chronic Bronchitis, Hx Chronic Obstructive Pulmonary Disease (COPD), Hx Cystic Fibrosis, Hx Lung Cancer, Hx Pleural Effusion, Hx Pulmonary Edema, Hx Pulmonary Embolism, Hx Seasonal Allergies, Hx Sleep Apnea, Other Respiratory Problems/Disorders GI History: Reports: Hx Gall Bladder Disease - taken out 2012, Hx Gastroesophageal Reflux Disease, Hx Gastrointestinal Bleed Denies: Hx Cirrhosis, Hx Crohn's Disease, Hx Diverticulosis, Hx Hiatal Hernia , Hx Irritable Bowel, Hx Jaundice, Hx Obstructive Bowel, Hx Ileostomy, Hx Pyloric Stenosis, Hx Ulcer, Other GI Disorders History: Denies: Hx Acute Renal Failure, Hx Benign Prostatic Hyperplasia, Hx Chronic Renal Failure, Hx Dialysis, Hx Kidney Infection, Hx Kidney Stones, Hx Renal Disease, Other Problems/Disorders Musculoskeletal History: Reports: Hx Back Problems - chronic back pain, T4-T5 fusion, Hx Fibromyalgia - 2005 Denies: Hx Arthritis, Hx Bursitis, Hx Congenital Bone Abnormalities, Hx Gout , Hx Orthopedic Injury, Hx Osteoporosis, Hx Scoliosis, Hx Tendonitis Sensory History: Reports: Hx Contacts or Glasses - Reading Denies: Hx Cataracts, Hx Eye Injury, Hx Eye Prosthesis, Hx Glaucoma, Hx Legally Blind, Hx Macular Degeneration, Hx Vision Problem, Hx Deafness, Hx Hearing Aid, Hx Hearing Problem, Other Sensory Impairments Opthamlomology History: Reports: Hx Contacts or Glasses - Reading Denies: Hx Cataracts, Hx Eye Injury, Hx Eye Prosthesis, Hx Glaucoma, Hx Legally Blind, Hx Macular Degeneration, Hx Vision Problem, Other Sensory Impairments Neurological History: Reports: Hx Dementia, Hx Migraine, Hx Seizures, Other Neuro Impairments/Disorders - prev back surg, bells palsy, chronic back pain - L4-5 spinal fusion 2009 Denies: Hx Developmental Delay, Hx Headaches, Hx Nerve Disease, Hx Spinal Cord Injury, Hx Transient Ischemic Attacks (TIA) Psychiatric History: Reports: Hx Anxiety, Hx Depression Denies: Hx Attention Deficit Hyperactivity Disorder, Hx Eating Disorder, Hx Panic Disorder, Hx Post Traumatic Stress Disorder, Hx Inpatient Treatment, Hx Community Mental Health Tx, Hx Schizophrenia, Hx Bipolar Disorder, Hx Suicide Attempt, Hx of Violent Episodes Against Others, Hx Substance Abuse - Surgical History Surgery Procedure, Year, and Place: [place] [facility] [place] [facility] [place] - 2009 [place]. TUBAL LIGATION 1997. Gall bladder 2012 Hx Anesthesia Reactions: No - Immunization History Date of Tetanus Vaccine: 04/27/15 Date of Influenza Vaccine: None Infectious Disease History: No Infectious Disease History: Denies: Hx Clostridium Difficile, Hx Hepatitis, Hx Human Immunodeficiency Virus (HIV), Hx of Known/Suspected MRSA, Hx Shingles, Hx Tuberculosis, Hx Known/ Suspected VRE, Hx Known/Suspected VRSA, History Other Infectious Disease, Traveled Outside the in Last 30 Days - Family History Known Family History: Positive: Cardiac Disease, Hypertension, Diabetes, Seizure Disorder - paternal, maternal, Other Family History: Mother alive in 60s with Hx of gallbladder CA, DVT. Father alive in 60s with Hx of CAD - Social History Alcohol Use: None Hx Substance Use: No Substance Use Type: Reports: None Hx Tobacco Use: Yes Smoking Status (MU): Former Smoker Type: Cigarettes Amount Used/How Often: 4 Cigarettes/DAY Have You Smoked in the Last Year: Yes Review of Systems Negative: Fever Positive: Abdominal Pain - Epigastric All Other Systems Reviewed And Are Negative: Yes Physical Exam Triage Information Reviewed: Yes Vital Signs On Initial Exam: Initial Vitals Temp Pulse Resp BP Pulse Ox 98.2 F 107 26 134/96 100 07/03/16 06:59 07/03/16 06:59 07/03/16 06:59 07/03/16 06:59 07/03/16 06:59 Vital Signs Reviewed: Yes Appearance: Positive: Well-Appearing - Female. Crying., No Pain Distress Skin: Positive: Warm, Skin Color Reflects Adequate Perfusion, Dry Head/Face: Positive: Normal Head/Face Inspection, Other - Dry oral mucosis Eyes: Positive: Normal, EOMI, WILLIAMS ENT: Positive: Normal ENT inspection Neck: Positive: Supple, Nontender Respiratory/Lung Sounds: Positive: Clear to Auscultation, Breath Sounds Present Cardiovascular: Positive: Normal, RRR Abdomen Description: Positive: Soft, Other: - Epigastric tenderness with rebounding Bowel Sounds: Positive: Present Musculoskeletal: Positive: Normal, Strength/ROM Intact Neurological: Positive: Normal, Sensory/Motor Intact, Alert, Oriented to Person Place, Time Psychiatric: Positive: Normal, Affect/Mood Appropriate - Faye Coma Scale Coma Scale Total: 14 Diagnostics - Vital Signs Vital Signs Temp Pulse Resp BP Pulse Ox 07/03/16 06:59 98.2 F 107 26 134/96 100 - Laboratory Lab Results: Lab Results 07/03/16 07/03/16 07/03/16 Range/Units 09:00 09:00 09:40 WBC 7.5 (3.5-10.8) 10^3/ul RBC 4.46 (4.0-5.4) 10^6/ul Hgb 12.4 (12.0-16.0) g/dl Hct 38 (35-47) % MCV 85 (80-97) fL MCH 28 (27-31) pg MCHC 33 (31-36) g/dl RDW 16 H (10.5-15) % Plt Count 272 (150-450) 10^3/ul MPV 10 (7.4-10.4) um3 Neut % (Auto) 91.3 H (38-83) % Lymph % (Auto) 6.1 L (25-47) % Rice % (Auto) 2.3 (1-9) % Eos % (Auto) 0.1 (0-6) % Baso % (Auto) 0.2 (0-2) % Absolute Neuts (auto) 6.9 (1.5-7.7) 10^3/ul Absolute Lymphs (auto) 0.5 L (1.0-4.8) 10^3/ul Absolute Monos (auto) 0.2 (0-0.8) 10^3/ul Absolute Eos (auto) 0 (0-0.6) 10^3/ul Absolute Basos (auto) 0 (0-0.2) 10^3/ul Absolute Nucleated RBC 0 10^3/ul Nucleated RBC % 0 APTT 22.8 L (26.0-36.3) seconds Sodium 138 (133-145) mmol/L Potassium 3.7 (3.5-5.0) mmol/L Chloride 107 (101-111) mmol/L Carbon Dioxide 21 L (22-32) mmol/L Anion Gap 10 (2-11) mmol/L BUN 12 (6-24) mg/dL Creatinine 0.55 (0.51-0.95) mg/dL Est GFR ( Amer) 149.9 (>60) Est GFR (Non-Af Amer) 116.5 (>60) BUN/Creatinine Ratio 21.8 H (8-20) Glucose 134 H (70-100) mg/dL Calcium 9.1 (8.6-10.3) mg/dL Magnesium 1.9 (1.9-2.7) mg/dL Total Bilirubin 0.30 (0.2-1.0) mg/dL AST 13 (13-39) U/L ALT 11 (7-52) U/L Alkaline Phosphatase 87 (34-104) U/L Total Creatine Kinase 75 (10-223) U/L Troponin I 0.01 (<0.04) ng/mL C-Reactive Protein 2.37 (< 5.00) mg/L Total Protein 7.0 (6.4-8.9) g/dL Albumin 4.1 (3.2-5.2) g/dL Globulin 2.9 (2-4) g/dL Albumin/Globulin Ratio 1.4 (1-3) Amylase 53 (29-103) U/L Lipase 14 (11.0-82.0) U/L Urine Color Urine Appearance Urine pH (5-9) Ur Specific [place] (1.010-1.030) Urine Protein (Negative) Urine Ketones (Negative) Urine Blood (Negative) Urine Nitrate (Negative) Urine Bilirubin (Negative) Urine Urobilinogen (Negative) Ur Leukocyte Esterase (Negative) Urine WBC (Auto) (Absent) Urine RBC (Auto) (Absent) Ur Squamous Epith Cells (Absent) Urine Bacteria (Absent) Urine Glucose (Negative) 07/03/16 Range/Units 10:03 WBC (3.5-10.8) 10^3/ul RBC (4.0-5.4) 10^6/ul Hgb (12.0-16.0) g/dl Hct (35-47) % MCV (80-97) fL MCH (27-31) pg MCHC (31-36) g/dl RDW (10.5-15) % Plt Count (150-450) 10^3/ul MPV (7.4-10.4) um3 Neut % (Auto) (38-83) % Lymph % (Auto) (25-47) % Rice % (Auto) (1-9) % Eos % (Auto) (0-6) % Baso % (Auto) (0-2) % Absolute Neuts (auto) (1.5-7.7) 10^3/ul Absolute Lymphs (auto) (1.0-4.8) 10^3/ul Absolute Monos (auto) (0-0.8) 10^3/ul Absolute Eos (auto) (0-0.6) 10^3/ul Absolute Basos (auto) (0-0.2) 10^3/ul Absolute Nucleated RBC 10^3/ul Nucleated RBC % APTT (26.0-36.3) seconds Sodium (133-145) mmol/L Potassium (3.5-5.0) mmol/L Chloride (101-111) mmol/L Carbon Dioxide (22-32) mmol/L Anion Gap (2-11) mmol/L BUN (6-24) mg/dL Creatinine (0.51-0.95) mg/dL Est GFR ( Amer) (>60) Est GFR (Non-Af Amer) (>60) BUN/Creatinine Ratio (8-20) Glucose (70-100) mg/dL Calcium (8.6-10.3) mg/dL Magnesium (1.9-2.7) mg/dL Total Bilirubin (0.2-1.0) mg/dL AST (13-39) U/L ALT (7-52) U/L Alkaline Phosphatase (34-104) U/L Total Creatine Kinase (10-223) U/L Troponin I (<0.04) ng/mL C-Reactive Protein (< 5.00) mg/L Total Protein (6.4-8.9) g/dL Albumin (3.2-5.2) g/dL Globulin (2-4) g/dL Albumin/Globulin Ratio (1-3) Amylase (29-103) U/L Lipase (11.0-82.0) U/L Urine Color Yellow Urine Appearance Cloudy Urine pH 8.0 (5-9) Ur Specific [place] 1.017 (1.010-1.030) Urine Protein Negative (Negative) Urine Ketones 1+ H (Negative) Urine Blood Negative (Negative) Urine Nitrate Negative (Negative) Urine Bilirubin Negative (Negative) Urine Urobilinogen Negative (Negative) Ur Leukocyte Esterase 1+ H (Negative) Urine WBC (Auto) 3+(>20/hpf) H (Absent) Urine RBC (Auto) Absent (Absent) Ur Squamous Epith Cells Present H (Absent) Urine Bacteria Absent (Absent) Urine Glucose Negative (Negative) Result Diagrams: 07/03/16 09:40 07/03/16 09:00 Lab Statement: Any lab studies that have been ordered have been reviewed, and results considered in the medical decision making process. - Radiology Abd XRAY Xray Interpretation: Positive (See Comments) - IMPRESSION: Very large burden of stool throughout the colon. No evidence for bowel obstruction or free air. Radiology Interpretation Completed By: Radiologist - EKG 0823 Cardiac Rate: Tachycardia EKG Rhythm: Sinus Tachycardia - [address] Segment: Normal Abdominal Pain Fem Course/Dx - Course Course Of Treatment: 51 y/o female presents to the ED with epigastric pain described as a stomach aching beginning last night. Pt states her pain registers at a 4 out of 10 in severity and denies radiation of pain to other parts of the body. Pt states that nothing alleviate nor aggravates her symptoms. Pt states she has had a hiatal hernia for the last few months. Pt denies any other pertinent PMHx at this time. Blood work shows no elevated WBC or bands, glucose 96, no CRP elevation, urine sample was contaminated. Abd XRAY IMPRESSION: Very large burden of stool throughout the colon. No evidence for bowel obstruction or free air. She was offered Miralax for constipation but she declines. EKG shows sinus tachycardia with 105 bmp. Pt given IV fluids for hydration, Zofran for nausea, and morphine for pain. Pt well-being significantly improved. Pt will go home with instruction to follow up with PCP. Pt alert and oriented x3 and hemodynamically stable. After medications in re- eamination of the abdomen: Abdomen is soft, NT with positive BS. I discussed all the findings and test results with the patient. Patient was instructed to return to the emergency room immediately if any of the symptoms return or worsens. They were explained the possibility of an early abdominal pathology which was not detected at this time despite the physical exam and testing. They understand and agree. Abdominal exam before discharge: Soft, NT. No signs of distention. BS present. No rebound no guarding, and no masses palpated. Patient is alert and oriented and hemodynamically stable. Patient is to follow up with primary care physician in the next 2 to 3 days. Patient agree and understands. - Diagnoses Differential Diagnosis: Positive: Constipation, Pancreatitis, Urinary Tract Infection Provider Diagnoses: ABD.PAIN, Constipation Discharge - Discharge Plan Condition: Stable Disposition: HOME Patient Education Materials: Abdominal Pain (ED) Referrals: Shanda Anglin MD [Primary Care Provider] - Additional Instructions: Please return to ED if symptoms return or worsen The documentation as recorded by the Palma blanco Alok accurately reflects the service I personally performed and the decisions made by Donald wolff Walter, MD.
== END 2016-07-03 11:15 | disposition home or self-care (01) ==
LOC: ED 06:59
DX: R10.13 Epigastric pain (principal); K59.00 Constipation, unspecified; Z87.891 Personal history of nicotine dependence
CPT/HCPCS: 36415; 74020; 80053; 81003; 81015; 82150; 82550; 83690; 83735; 84484; 85025; 85730; 86140; 87086; 93005; 96374; 96375; 99283; J2270; J2405

== ENCOUNTER 2016-07-09 03:16 | Emergency (ER) | payer OTHER ==
[2016-07-09] MEDS ORDERED: NS 0.9% 1000 ML* 2,000 ML IV ONE (04:11)
[2016-07-09] MEDS ORDERED: Pantoprazole IV* 40 MG IV ONE (04:21)
[2016-07-09] MEDS ORDERED: Morphine INJ* 4 MG/ML 1 ML CARPUJECT IV ONE ×2 (04:21→05:54)
[2016-07-09] MEDS ORDERED: Ondansetron INJ* 2 MG/ML VIAL IV ONE ×2 (04:22→08:12)
[2016-07-09 04:50] LABS: Hematocrit 36 % (35-47); Hemoglobin 12.2 g/dl (12.0-16.0); Mean Corpuscular HGB Conc 34 g/dl (31-36); Mean Corpuscular Hemoglobin 28 pg (27-31); Mean Corpuscular Volume 83 fL (80-97); Mean Platelet Volume 8 um3 (7.4-10.4); Red Blood Count 4.32 10^6/ul (4.0-5.4); Red Cell Distribution Width 15 % (10.5-15); White Blood Count 8.6 10^3/ul (3.5-10.8)
[2016-07-09 04:53] LABS: BUN/Creatinine Ratio 16.4 (8-20); C Reactive Protein 2.56 mg/L (< 5.00); Calcium 9.4 mg/dL (8.6-10.3); EGFR Non-African American 103.4 (>60); Globulin 2.9 g/dL (2-4); Potassium 3.2 mmol/L (3.5-5.0); Total Bilirubin 0.3 mg/dL (0.2-1.0); Total Protein 6.9 g/dL (6.4-8.9)
--- NOTE | 2016-07-09 06:40 | ED ---
narayan Sanchez Timothy, scribed for Garret Terry MD on 07/09/16 at 0330 . Abdominal Pain/Female - HPI Summary HPI Summary: Juli Agosto is a 51 yo female presenting to [facility] with acute on chronic 1010 upper abd pain radiating to her back and vomiting since 0000. She did not vomit until arrival at [facility]. She states she has a hiatal hernia. she had a BM here with no blood. She denies any pain in hre life, or any Hx of similar Sx.She has self-medicated with tramadol with no relief. Her MHx includes DVT 1993, migraine , dementia, seizures, Rinaldi's palsy, PNA, gall bladder disease an removal 2012, ovarian cysts 2009, fibromyalgia 2005, depression, anxiety, tobacco use. Her PCP is Dr. Anglin. - History of Current Complaint Stated Complaint: ABDOMINAL PAIN Time Seen by Provider: 07/09/16 04:00 Hx Obtained From: Patient Hx Last Menstrual Period: 51 Y/O FEMALE Onset/Duration: Sudden Onset, Lasting Hours, Still Present Timing: Constant Severity Initially: Moderate Severity Currently: Moderate Pain Intensity: 10 Pain Scale Used: 0-10 Numeric Location: Epigastric Radiates: Yes Radiates to: Back Associated Signs and Symptoms: Positive: Back Pain, Nausea, Vomiting. Negative : Blood in Stool Allergies/Adverse Reactions: Allergies Allergy/AdvReac Type Severity Reaction Status Date / Time Aspirin Allergy Intermediate Hives Verified 06/22/16 13:00 Cyclobenzaprine Allergy Intermediate Difficulty Verified 06/22/16 13:00 [From Flexeril] Swallowing Ketorolac Tromethamine Allergy Intermediate Difficulty Verified 06/22/16 13:00 [From Toradol] Swallowing Clonazepam [From Klonopin] Allergy Mild Rash Verified 06/22/16 13:00 NSAIDs Allergy Mild Itching Verified 06/22/16 13:00 Penicillins [PCN] Allergy Mild Rash Verified 06/22/16 13:00 Topiramate [From Topamax] AdvReac Mild Headache Verified 06/22/16 13:00 Erythromycin AdvReac See Comment Verified 06/22/16 13:00 [email or web address] Allergy Severe Swelling Uncoded 06/22/16 13:00 Of Face,Lips,& Throat lidoderm Allergy Mild Rash Uncoded 06/22/16 13:00 [place] AdvReac Mild Dizziness Uncoded 06/22/16 13:00 PMH/Surg Hx/FS Hx/Imm Hx Endocrine/Hematology History: Reports: Hx Anticoagulant Therapy - lovenox, 4 months Denies: Hx Blood Disorders, Hx Blood Transfusions, Hx Bone Marrow Disease, Hx Diabetes, Hx Systemic Lupus Erythematosus, Hx Sickle Cell Disease, Hx Thyroid Disease, Hx Anemia, Hx Unexplained Bleeding Cardiovascular History: Reports: Hx Angina, Hx Deep Vein Thrombosis - 1993 left calf, Hx Syncope Denies: Hx Aneurysm, Hx Angioplasty, Hx Auto Implanted Cardiovert Defib, Hx Cardiac Arrest, Hx Cardiomegaly, Hx Congenital Heart Disease, Hx Congestive Heart Failure, Hx Coronary Artery Disease, Hx Embolism, Hx Hypercholesterolemia , Hx Hypotension, Hx Hypertension, Hx Myocardial Infarction, Hx Pacemaker/ICD, Hx Peripheral Vascular Disease, Hx Rheumatic Fever, Hx Valvular Heart Disease, Other Cardiovascular Problems/Disorders Respiratory History: Reports: Hx Pneumonia Denies: Hx Asthma, Hx Chronic Bronchitis, Hx Chronic Obstructive Pulmonary Disease (COPD), Hx Cystic Fibrosis, Hx Lung Cancer, Hx Pleural Effusion, Hx Pulmonary Edema, Hx Pulmonary Embolism, Hx Seasonal Allergies, Hx Sleep Apnea, Other Respiratory Problems/Disorders GI History: Reports: Hx Gall Bladder Disease - taken out 2012, Hx Gastroesophageal Reflux Disease, Hx Gastrointestinal Bleed Denies: Hx Cirrhosis, Hx Crohn's Disease, Hx Diverticulosis, Hx Hiatal Hernia , Hx Irritable Bowel, Hx Jaundice, Hx Obstructive Bowel, Hx Ileostomy, Hx Pyloric Stenosis, Hx Ulcer, Other GI Disorders History: Denies: Hx Acute Renal Failure, Hx Benign Prostatic Hyperplasia, Hx Chronic Renal Failure, Hx Dialysis, Hx Kidney Infection, Hx Kidney Stones, Hx Renal Disease, Other Problems/Disorders Musculoskeletal History: Reports: Hx Back Problems - chronic back pain, T4-T5 fusion, Hx Fibromyalgia - 2005 Denies: Hx Arthritis, Hx Bursitis, Hx Congenital Bone Abnormalities, Hx Gout , Hx Orthopedic Injury, Hx Osteoporosis, Hx Scoliosis, Hx Tendonitis Sensory History: Reports: Hx Contacts or Glasses - Reading Denies: Hx Cataracts, Hx Eye Injury, Hx Eye Prosthesis, Hx Glaucoma, Hx Legally Blind, Hx Macular Degeneration, Hx Vision Problem, Hx Deafness, Hx Hearing Aid, Hx Hearing Problem, Other Sensory Impairments Opthamlomology History: Reports: Hx Contacts or Glasses - Reading Denies: Hx Cataracts, Hx Eye Injury, Hx Eye Prosthesis, Hx Glaucoma, Hx Legally Blind, Hx Macular Degeneration, Hx Vision Problem, Other Sensory Impairments Neurological History: Reports: Hx Dementia, Hx Migraine, Hx Seizures, Other Neuro Impairments/Disorders - prev back surg, bells palsy, chronic back pain - L4-5 spinal fusion 2009 Denies: Hx Developmental Delay, Hx Headaches, Hx Nerve Disease, Hx Spinal Cord Injury, Hx Transient Ischemic Attacks (TIA) Psychiatric History: Reports: Hx Anxiety, Hx Depression Denies: Hx Attention Deficit Hyperactivity Disorder, Hx Eating Disorder, Hx Panic Disorder, Hx Post Traumatic Stress Disorder, Hx Inpatient Treatment, Hx [facility] Mental Health Tx, Hx Schizophrenia, Hx Bipolar Disorder, Hx Suicide Attempt, Hx of Violent Episodes Against Others, Hx Substance Abuse - Surgical History Surgery Procedure, Year, and Place: D&C-1987 [facility] [place]. - 1997 [facility] [place]. lumbar FUSION - 2009 [place]. TUBAL LIGATION 1997. Gall bladder 2012 Hx Anesthesia Reactions: No - Immunization History Date of Tetanus Vaccine: 04/27/15 Date of Influenza Vaccine: None Infectious Disease History: No Infectious Disease History: Denies: Hx Clostridium Difficile, Hx Hepatitis, Hx Human Immunodeficiency Virus (HIV), Hx of Known/Suspected MRSA, Hx Shingles, Hx Tuberculosis, Hx Known/ Suspected VRE, Hx Known/Suspected VRSA, History Other Infectious Disease, Traveled Outside the [place] in Last 30 Days - Family History Known Family History: Positive: Cardiac Disease, Hypertension, Diabetes, Seizure Disorder - paternal, maternal, Other Family History: Mother alive in 60s with Hx of gallbladder CA, DVT. Father alive in 60s with Hx of CAD - Social History Alcohol Use: None Hx Substance Use: No Substance Use Type: Reports: None Hx Tobacco Use: Yes Smoking Status (MU): Former Smoker Type: Cigarettes Amount Used/How Often: 4 Cigarettes/DAY Have You Smoked in the Last Year: Yes Review of Systems Constitutional: Negative Eyes: Negative ENT: Negative Cardiovascular: Negative Respiratory: Negative Positive: Abdominal Pain - radiating to back, Vomiting Genitourinary: Negative Musculoskeletal: Negative Skin: Negative Neurological: Negative Psychological: Normal All Other Systems Reviewed And Are Negative: Yes Physical Exam - Summary Physical Exam Summary: The patient is well-nourished in mild pain distress. The skin is warm and dry and skin color reflects adequate perfusion. Good skin turgor. HEENT: The head is normocephalic and atraumatic. The pupils are equal and reactive. The conjunctivae are clear and without drainage. Nares are patent and without drainage. Mouth reveals dry mucous membranes and the throat is without erythema and exudate. The external ears are intact. Neck is supple with full range of motion and non-tender. There are no carotid bruits. There is no neck vein distension. Respiratory: Chest is non-tender. Lungs are clear to auscultation and breath sounds are symmetrical and equal. Cardiovascular: Hear is regular rate and rhythm. There is no murmur or rub auscultated. There is no peripheral edema and pulses are symmetrical and equal. Abdomen: The abdomen is soft and non-tender, there was no pain with palpation. There are normal bowel sounds heard in all four quadrants and there is no organomegaly palpated. Right CVA tenderness Musculoskeletal: There is no back pain noted. Extremities are non-tender with full range of motion. There is good capillary refill. There is no peripheral edema or calf tenderness elicited. Neurological: Patient is alert and oriented to person, place and time. The patient has symmetrical motor strength in all four extremities. Cranial nerves are grossly intact. Deep tendon reflexes are symmetrical and equal in all four extremities. Psychiatric: The patient has an appropriate affect and does not exhibit any anxiety or depression. Triage Information Reviewed: Yes Vital Signs On Initial Exam: Initial Vitals Temp Pulse Resp BP Pulse Ox 99.2 F 108 22 139/87 95 07/09/16 03:21 07/09/16 03:21 07/09/16 03:21 07/09/16 03:21 07/09/16 03:21 Vital Signs Reviewed: Yes Diagnostics - Vital Signs Vital Signs Temp Pulse Resp BP Pulse Ox 07/09/16 03:21 99.2 F 108 22 139/87 95 - Laboratory Lab Results: Lab Results 07/09/16 07/09/16 07/09/16 Range/Units 04:22 04:22 04:22 WBC 8.6 (3.5-10.8) 10^3/ul RBC 4.32 (4.0-5.4) 10^6/ul Hgb 12.2 (12.0-16.0) g/dl Hct 36 (35-47) % MCV 83 (80-97) fL MCH 28 (27-31) pg MCHC 34 (31-36) g/dl RDW 15 (10.5-15) % Plt Count 282 (150-450) 10^3/ul MPV 8 (7.4-10.4) um3 Neut % (Auto) 84.7 H (38-83) % Lymph % (Auto) 9.0 L (25-47) % Starr % (Auto) 5.5 (1-9) % Eos % (Auto) 0.2 (0-6) % Baso % (Auto) 0.6 (0-2) % Absolute Neuts (auto) 7.2 (1.5-7.7) 10^3/ul Absolute Lymphs (auto) 0.8 L (1.0-4.8) 10^3/ul Absolute Monos (auto) 0.5 (0-0.8) 10^3/ul Absolute Eos (auto) 0 (0-0.6) 10^3/ul Absolute Basos (auto) 0.1 (0-0.2) 10^3/ul Absolute Nucleated RBC 0.01 10^3/ul Nucleated RBC % 0.1 INR (Anticoag Therapy) (0.89-1.11) Sodium 134 (133-145) mmol/L Potassium 3.2 L (3.5-5.0) mmol/L Chloride 99 L (101-111) mmol/L Carbon Dioxide 26 (22-32) mmol/L Anion Gap 9 (2-11) mmol/L BUN 10 (6-24) mg/dL Creatinine 0.61 (0.51-0.95) mg/dL Est GFR ( Amer) 133.0 (>60) Est GFR (Non-Af Amer) 103.4 (>60) BUN/Creatinine Ratio 16.4 (8-20) Glucose 112 H (70-100) mg/dL Lactic Acid 0.9 (0.5-2.0) mmol/L Calcium 9.4 (8.6-10.3) mg/dL Total Bilirubin 0.30 (0.2-1.0) mg/dL AST 14 (13-39) U/L ALT 11 (7-52) U/L Alkaline Phosphatase 74 (34-104) U/L C-Reactive Protein 2.56 (< 5.00) mg/L Total Protein 6.9 (6.4-8.9) g/dL Albumin 4.0 (3.2-5.2) g/dL Globulin 2.9 (2-4) g/dL Albumin/Globulin Ratio 1.4 (1-3) Amylase 45 (29-103) U/L Lipase 24 (11.0-82.0) U/L / Range/Units 04:22 WBC (3.5-10.8) 10^3/ul RBC (4.0-5.4) 10^6/ul Hgb (12.0-16.0) g/dl Hct (35-47) % MCV (80-97) fL MCH (27-31) pg MCHC (31-36) g/dl RDW (10.5-15) % Plt Count (150-450) 10^3/ul MPV (7.4-10.4) um3 Neut % (Auto) (38-83) % Lymph % (Auto) (25-47) % Starr % (Auto) (1-9) % Eos % (Auto) (0-6) % Baso % (Auto) (0-2) % Absolute Neuts (auto) (1.5-7.7) 10^3/ul Absolute Lymphs (auto) (1.0-4.8) 10^3/ul Absolute Monos (auto) (0-0.8) 10^3/ul Absolute Eos (auto) (0-0.6) 10^3/ul Absolute Basos (auto) (0-0.2) 10^3/ul Absolute Nucleated RBC 10^3/ul Nucleated RBC % INR (Anticoag Therapy) 1.02 (0.89-1.11) Sodium (133-145) mmol/L Potassium (3.5-5.0) mmol/L Chloride (101-111) mmol/L Carbon Dioxide (22-32) mmol/L Anion Gap (2-11) mmol/L BUN (6-24) mg/dL Creatinine (0.51-0.95) mg/dL Est GFR ( Amer) (>60) Est GFR (Non-Af Amer) (>60) BUN/Creatinine Ratio (8-20) Glucose (70-100) mg/dL Lactic Acid (0.5-2.0) mmol/L Calcium (8.6-10.3) mg/dL Total Bilirubin (0.2-1.0) mg/dL AST (13-39) U/L ALT (7-52) U/L Alkaline Phosphatase (34-104) U/L C-Reactive Protein (< 5.00) mg/L Total Protein (6.4-8.9) g/dL Albumin (3.2-5.2) g/dL Globulin (2-4) g/dL Albumin/Globulin Ratio (1-3) Amylase (29-103) U/L Lipase (11.0-82.0) U/L Result Diagrams: 07/09/16 04:22 07/09/16 04:22 Lab Statement: Any lab studies that have been ordered have been reviewed, and results considered in the medical decision making process. - Radiology Abd XR Xray Interpretation: No Acute Changes - Constipation. No perforation. No evidence of small bowel obstruction. No free air. Radiology Interpretation Completed By: ED Physician Re-Evaluation - Re-Evaluation First Eval Re-Evaluation Time: 05:45 Change: Worse Comment: Pt states her pain is worse. Abdominal Pain Fem Course/Dx - Course Course Of Treatment: Juli Agosto is a 51 yo female presenting to [facility] with acute on chronic 10/10 abd pain since 0000 and vomiting since her arrival at [facility]. After clinical examination and review of her negative abd XR, as well as her lab work, she will be signed out to Dr. Dawson pending a report of her CT A/P. - Diagnoses Differential Diagnosis: Positive: Bowel Obstruction, Diverticulitis, Pancreatitis, Urinary Tract Infection, Other - chronic abdominal pain, narcotic abuse Provider Diagnoses: Abdominal pain Discharge - Discharge Plan Condition: Stable Disposition: OTHER Discharge Disposition Comment: Signed out to Dr. Dawson pending CT A/P report Patient Education Materials: Acute Abdominal Pain (ED) Referrals: Shanda Anglin MD [Primary Care Provider] - 2 Days Additional Instructions: Please follow up with your primary care physician regarding your visit to the emergency department today. Return to the emergency department with any new or recurring symptoms. The documentation as recorded by the narayan blanco Timothy accurately reflects the service I personally performed and the decisions made by , Garret Terry MD.
[2016-07-09] MEDS ORDERED: Potassium Chlor TAB* 20 MEQ TAB.ER PO ONE (07:35)
--- NOTE | 2016-07-09 07:35 | ED ---
Progress - Progress Note Progress Note: 0730 Pt received in sign out Pt drinking contrast for CT - pt has had little of contrast - encouraged po Reviewed labs - pt with hypokalemia Will give potassium Pt updated - no current needs 0810 Pt unable to drink additional contrast - states burning and causing nausea Will give zofran sent to CT - pt had 1/2 cup Pt aware will not give additional analgesia until CT complete 0940 IMPRESSION: 1. HIATAL HERNIA. 2. STATUS POST CHOLECYSTECTOMY WITH ASSOCIATED ECTASIA OF THE COMMON DUCT. 3. A LEFT COMMON ILIAC VENOUS STENT IS NOTED. THE STENT DOES NOT APPEAR TO BE PATENT WITH THROMBUS EXTENDING INTO THE IVC. Reviewed with pt Will give Rx zofran PCP f/u No narcotic scripts Re-Evaluation - Re-Evaluation First Eval Re-Evaluation Time: 05:45 Change: Worse Comment: Pt states her pain is worse. Course/Dx - Course Course Of Treatment: Juli Agosto is a 51 yo female presenting to [facility] with acute on chronic 10/10 abd pain since 0000 and vomiting since her arrival at [facility]. After clinical examination and review of her negative abd XR, as well as her lab work, she will be signed out to Dr. Dawson pending a report of her CT A/P. - Diagnoses Provider Diagnoses: Abdominal pain
--- NOTE | 2016-07-09 08:04 | RAD ---
HISTORY: Abdominal pain and vomiting, small bowel obstruction COMPARISONS: July 03, 2016 VIEWS: Frontal supine and left lateral CC views of the abdomen FINDINGS: BOWEL: There is a nonspecific bowel gas pattern, with nondilated small bowel gas noted. There is a large amount of stool within the colon. CALCULI: There are no abnormal calculi. BONES AND SOFT TISSUES: The patient is status post spinal fusion OTHER FINDINGS: The lung bases are clear. There is no appreciable free intraperitoneal gas IMPRESSION: NONSPECIFIC BOWEL GAS PATTERN. LARGE AMOUNT OF STOOL WITHIN THE COLON.
[2016-07-09] MEDS ORDERED: Iohexol 300* (CONTRAST) 10 ML SDV IV ONE (08:41)
--- NOTE | 2016-07-09 09:42 | RAD ---
CLINICAL HISTORY: Abdominal pain, vomiting, small bowel obstruction COMPARISON: May 22, 2016 TECHNIQUE: Multiple contiguous axial CT scans were obtained of the abdomen and pelvis after the administration of intravenous contrast. Coronal and sagittal multiplanar reformations are submitted for review. Oral contrast was administered. Delayed images were obtained through the abdomen FINDINGS: LUNG BASES: The lung bases are clear. LIVER: The liver is normal in shape, size, contour, and attenuation. BILE DUCTS: Common duct is ectatic measuring up to 0.9 cm in caliber. There is no intrahepatic biliary dilatation. GALLBLADDER: The gallbladder is not visualized. Surgical clips are noted in the gallbladder fossa. PANCREAS: The pancreas is normal, without mass or ductal dilatation. SPLEEN: Normal in size and appearance. UPPER GI TRACT: Evaluation of the gastrointestinal tract is limited by incomplete gastric distention. There is a moderate sliding hiatal hernia SMALL BOWEL AND MESENTERY: The small bowel is normal in contour, course, and caliber. There is no obstruction or dilatation. COLON: The colon is normal in contour, course, caliber. There is no pericolonic inflammatory change. ADRENALS: Normal bilaterally. KIDNEYS: The kidneys are normal in shape, size, contour, and axis. There is no hydronephrosis or nephrolithiasis. BLADDER: The bladder is smooth in contour. PELVIC ORGANS: The uterus and adnexa are grossly normal for technique. AORTA: The aorta is normal. IVC: A left common iliac vein stent is noted. The stent does not appear patent. There appears to be thrombus extending into the inferior vena cava. There are varicose inferior epigastric vein suggestive of collateral flow LYMPH NODES: There is no lymphadenopathy by size criteria. ABDOMINAL WALL: There are small subcutaneous hematomas consistent with sequela subcutaneous injection BONES AND SOFT TISSUES: The patient is status post spinal fusion at L5-S1. Mild degenerative changes are noted. OTHER: None IMPRESSION: 1. HIATAL HERNIA. 2. STATUS POST CHOLECYSTECTOMY WITH ASSOCIATED ECTASIA OF THE COMMON DUCT. 3. A LEFT COMMON ILIAC VENOUS STENT IS NOTED. THE STENT DOES NOT APPEAR TO BE PATENT WITH THROMBUS EXTENDING INTO THE IVC.
[2016-07-09 10:38] VITALS: BP 133/96
== END 2016-07-09 11:13 | disposition home or self-care (01) ==
LOC: ED 03:16
DX: R10.9 Unspecified abdominal pain (principal)
CPT/HCPCS: 36415; 74020; 74177; 80053; 82150; 83605; 83690; 85025; 85610; 86140; 96374; 96375; 99282; J2270; J2405; Q9967

== ENCOUNTER 2016-07-10 11:16 | Emergency (ER) | payer OTHER ==
[2016-07-10 11:21] VITALS: BP 140/91
[2016-07-10] MEDS ORDERED: oxyCODONE/Acetamin 5/325 MG* TAB PO ONE (12:46)
--- NOTE | 2016-07-10 13:25 | RAD ---
HISTORY: Fall, pain, fall on tailbone COMPARISONS: CT dated July 09, 2016 VIEWS: 3, frontal, oblique, lateral views of the sacrum and coccyx FINDINGS: BONE DENSITY: Normal. BONES: The patient is status post fusion at L5 and S1 with bilateral pedicle screws. There is no displaced fracture or dislocation. The sacral arches are intact. JOINTS: There is facet osteoarthritic change. There is mild SI joint osteoarthritis. ALIGNMENT: There is no dislocation. SOFT TISSUES: Unremarkable. OTHER FINDINGS: A venous stent is noted IMPRESSION: 1. OSTEOARTHRITIS. 2. POST SURGICAL CHANGE. 3. NO ACUTE OSSEOUS INJURY OF THE SACRUM AND COCCYX. PLAIN FILMS ARE RELATIVELY INSENSITIVE TO NONDISPLACED FRACTURES OF THE SACRUM AND COCCYX. IF THERE IS PERSISTENT CLINICAL CONCERN FOR SACROCOCCYGEAL OSSEOUS PATHOLOGY, BONE SCANNING MAY BE MORE SENSITIVE
--- NOTE | 2016-07-10 13:38 | ED ---
Lower Extremity - HPI Summary HPI Summary: 55F presents with tailbone pain. She states that her legs were feeling weak and she fell onto her tailbone. She states afterward she has not been able to ambulate. She denies any back pain. She denies any loss of bowel or bladder. She denies any saddle paresthsia. - History of Current Complaint Chief Complaint: EDBackInjuryPain Stated Complaint: FALL Time Seen by Provider: 07/10/16 12:25 Hx Last Menstrual Period: 51 Y/O FEMALE Pain Intensity: 8 - Allergies/Home Medications Allergies/Adverse Reactions: Allergies Allergy/AdvReac Type Severity Reaction Status Date / Time Aspirin Allergy Intermediate Hives Verified 06/22/16 13:00 Cyclobenzaprine Allergy Intermediate Difficulty Verified 06/22/16 13:00 [From Flexeril] Swallowing Ketorolac Tromethamine Allergy Intermediate Difficulty Verified 06/22/16 13:00 [From Toradol] Swallowing Clonazepam [From Klonopin] Allergy Mild Rash Verified 06/22/16 13:00 NSAIDs Allergy Mild Itching Verified 06/22/16 13:00 Penicillins [PCN] Allergy Mild Rash Verified 06/22/16 13:00 Topiramate [From Topamax] AdvReac Mild Headache Verified 06/22/16 13:00 Erythromycin AdvReac See Comment Verified 06/22/16 13:00 [place] Allergy Severe Swelling Uncoded 06/22/16 13:00 Of Face,Lips,& Throat lidoderm Allergy Mild Rash Uncoded 06/22/16 13:00 tums AdvReac Mild Dizziness Uncoded 06/22/16 13:00 PMH/Surg Hx/FS Hx/Imm Hx Endocrine/Hematology History: Reports: Hx Anticoagulant Therapy - lovenox, 4 months Denies: Hx Blood Disorders, Hx Blood Transfusions, Hx Bone Marrow Disease, Hx Diabetes, Hx Systemic Lupus Erythematosus, Hx Sickle Cell Disease, Hx Thyroid Disease, Hx Anemia, Hx Unexplained Bleeding Cardiovascular History: Reports: Hx Angina, Hx Deep Vein Thrombosis - 1993 left calf, Hx Syncope Denies: Hx Aneurysm, Hx Angioplasty, Hx Auto Implanted Cardiovert Defib, Hx Cardiac Arrest, Hx Cardiomegaly, Hx Congenital Heart Disease, Hx Congestive Heart Failure, Hx Coronary Artery Disease, Hx Embolism, Hx Hypercholesterolemia , Hx Hypotension, Hx Hypertension, Hx Myocardial Infarction, Hx Pacemaker/ICD, Hx Peripheral Vascular Disease, Hx Rheumatic Fever, Hx Valvular Heart Disease, Other Cardiovascular Problems/Disorders Respiratory History: Reports: Hx Pneumonia Denies: Hx Asthma, Hx Chronic Bronchitis, Hx Chronic Obstructive Pulmonary Disease (COPD), Hx Cystic Fibrosis, Hx Lung Cancer, Hx Pleural Effusion, Hx Pulmonary Edema, Hx Pulmonary Embolism, Hx Seasonal Allergies, Hx Sleep Apnea, Other Respiratory Problems/Disorders GI History: Reports: Hx Gall Bladder Disease - taken out 2012, Hx Gastroesophageal Reflux Disease, Hx Gastrointestinal Bleed Denies: Hx Cirrhosis, Hx Crohn's Disease, Hx Diverticulosis, Hx Hiatal Hernia , Hx Irritable Bowel, Hx Jaundice, Hx Obstructive Bowel, Hx Ileostomy, Hx Pyloric Stenosis, Hx Ulcer, Other GI Disorders History: Denies: Hx Acute Renal Failure, Hx Benign Prostatic Hyperplasia, Hx Chronic Renal Failure, Hx Dialysis, Hx Kidney Infection, Hx Kidney Stones, Hx Renal Disease, Other Problems/Disorders Musculoskeletal History: Reports: Hx Back Problems - chronic back pain, T4-T5 fusion, Hx Fibromyalgia - 2005 Denies: Hx Arthritis, Hx Bursitis, Hx Congenital Bone Abnormalities, Hx Gout , Hx Orthopedic Injury, Hx Osteoporosis, Hx Scoliosis, Hx Tendonitis Sensory History: Reports: Hx Contacts or Glasses - Reading Denies: Hx Cataracts, Hx Eye Injury, Hx Eye Prosthesis, Hx Glaucoma, Hx Legally Blind, Hx Macular Degeneration, Hx Vision Problem, Hx Deafness, Hx Hearing Aid, Hx Hearing Problem, Other Sensory Impairments Opthamlomology History: Reports: Hx Contacts or Glasses - Reading Denies: Hx Cataracts, Hx Eye Injury, Hx Eye Prosthesis, Hx Glaucoma, Hx Legally Blind, Hx Macular Degeneration, Hx Vision Problem, Other Sensory Impairments Neurological History: Reports: Hx Dementia, Hx Migraine, Hx Seizures, Other Neuro Impairments/Disorders - prev back surg, bells palsy, chronic back pain - L4-5 spinal fusion 2009 Denies: Hx Developmental Delay, Hx Headaches, Hx Nerve Disease, Hx Spinal Cord Injury, Hx Transient Ischemic Attacks (TIA) Psychiatric History: Reports: Hx Anxiety, Hx Depression Denies: Hx Attention Deficit Hyperactivity Disorder, Hx Eating Disorder, Hx Panic Disorder, Hx Post Traumatic Stress Disorder, Hx Inpatient Treatment, Hx Community Mental Health Tx, Hx Schizophrenia, Hx Bipolar Disorder, Hx Suicide Attempt, Hx of Violent Episodes Against Others, Hx Substance Abuse - Surgical History Surgery Procedure, Year, and Place: D&C-1987 [facility] [place]. - 1997 [facility] [place]. lumbar FUSION - 2009 [place]. TUBAL LIGATION 1997. Gall bladder 2013 Hx Anesthesia Reactions: No - Immunization History Date of Tetanus Vaccine: 04/27/15 Date of Influenza Vaccine: None Infectious Disease History: No Infectious Disease History: Denies: Hx Clostridium Difficile, Hx Hepatitis, Hx Human Immunodeficiency Virus (HIV), Hx of Known/Suspected MRSA, Hx Shingles, Hx Tuberculosis, Hx Known/ Suspected VRE, Hx Known/Suspected VRSA, History Other Infectious Disease, Traveled Outside the [place] in Last 30 Days - Family History Known Family History: Positive: Cardiac Disease, Hypertension, Diabetes, Seizure Disorder - paternal, maternal, Other Family History: Mother alive in 60s with Hx of gallbladder CA, DVT. Father alive in 60s with Hx of CAD - Social History Alcohol Use: None Hx Substance Use: No Substance Use Type: Reports: None Hx Tobacco Use: Yes Smoking Status (MU): Light Every Day Tobacco Smoker Type: Cigarettes Amount Used/How Often: 4 Cigarettes/DAY Have You Smoked in the Last Year: Yes Review of Systems Negative: Fever Negative: Chest Pain Negative: Shortness Of Breath Positive: Myalgia - tailbone pain All Other Systems Reviewed And Are Negative: Yes Physical Exam Triage Information Reviewed: Yes Vital Signs On Initial Exam: Initial Vitals Temp Pulse Resp BP Pulse Ox 97.4 F 125 20 140/91 100 07/10/16 11:17 07/10/16 11:17 07/10/16 11:17 07/10/16 11:17 07/10/16 11:17 Vital Signs Reviewed: Yes Appearance: Positive: Well-Appearing Skin: Positive: Warm, Dry Head/Face: Positive: Normal Head/Face Inspection Eyes: Positive: Normal, Conjunctiva Clear Respiratory/Lung Sounds: Positive: Clear to Auscultation, Breath Sounds Present Cardiovascular: Positive: Normal, RRR Musculoskeletal: Positive: Limited @ - back and lower extremities due to pain, Other - tenderness over tailbone Diagnostics - Vital Signs Vital Signs Temp Pulse Resp BP Pulse Ox 07/10/16 11:17 97.4 F 125 20 140/91 100 - Laboratory Lab Statement: Any lab studies that have been ordered have been reviewed, and results considered in the medical decision making process. - Radiology coccyx Xray Interpretation: Positive (See Comments) - IMPRESSION: 1. OSTEOARTHRITIS. 2. POST SURGICAL CHANGE. 3. NO ACUTE OSSEOUS INJURY OF THE SACRUM AND COCCYX. PLAIN FILMS ARE RELATIVELY INSENSITIVE TO NONDISPLACED FRACTURES OF THE SACRUM AND COCCYX. IF THERE IS PERSISTENT CLINICAL CONCERN FOR SACROCOCCYGEAL OSSEOUS PATHOLOGY, BONE SCANNING MAY BE MORE SENSITIVE Radiology Interpretation Completed By: Radiologist Re-Evaluation - Re-Evaluation First Eval Re-Evaluation Time: 14:11 Change: Improved Comment: states that needs something more for pain, discussed that using narcoctics can cause constipation which can place more pressure on area. patient states just going to leave. Lower Extremity Course/Dx - Course Course Of Treatment: 51F presents with tailbone pain today s/p fall. states that legs feel weak but is moving them and when go to test strength acts like she has no strength. xray does not show displaced fracture. discussed results that even if is fracture does not change treatment plan as best treatment is a doughnut pillow. also discussed that try to avoid opioid with coccyx injury as lead to constipation. gave percocet but patient would like something more. discussed that do not want to cause constipation. patient became upset and left without discharge papers - Diagnoses Differential Diagnosis/HQI/PQRI: Positive: Contusion, Fracture (Closed), Sprain , Strain Provider Diagnoses: Tail bone pain Discharge - Discharge Plan Condition: Good Disposition: HOME Patient Education Materials: Coccyx Injury (ED) Referrals: Shanda Anglin MD [Primary Care Provider] - Additional Instructions: Take Tylenol every 6 hours for pain Use doughnut pillow to avoid putting pressure on area Increase fiber intake Follow up with primary in 5 days Return to ED if develop any new or worsening symptoms
== END 2016-07-10 14:26 | disposition home or self-care (01) ==
LOC: ED 11:16
DX: M53.3 Sacrococcygeal disorders, not elsewhere classified (principal); M47.898 Other spondylosis, sacral and sacrococcygeal region
CPT/HCPCS: 72220; 99282; A9270-GY

== ENCOUNTER 2016-08-09 16:46 | Emergency (ER) | payer OTHER ==
[2016-08-09] MEDS ORDERED: Morphine INJ* 10 MG/ML 1 ML SYRINGE IM ONE (18:22)
--- NOTE | 2016-08-09 18:48 | RAD ---
HISTORY: Trauma, bilateral upper leg pain COMPARISONS: CT dated November 03, 2011 TECHNIQUE: Multiple contiguous axial CT scans were obtained of the lumbar spine without intravenous contrast, with coronal and sagittal multiplanar reformations. FINDINGS: SPINAL CANAL: Evaluation of the central canal is limited on CT technique; however, there is no obvious canalicular mass or epidural hemorrhage. ALIGNMENT: There is a dextroscoliotic curvature of the spine VERTEBRAL BODIES: The patient is status post laminectomy and spinal fusion at L5-S1. There is no hardware failure or osteolysis. There are bilateral pars defects at L5. JOINTS: There is osteoarthritis of the facet joints along the lower lumbar spine. MUSCULATURE: Unremarkable INTERVERTEBRAL DISCS: There is diffuse loss of intervertebral disc height throughout the spine. AXIAL IMAGES: T12-L1: There is no osseous neural foraminal narrowing or central canal stenosis. L1-L2: There is no osseous neural foraminal narrowing or central canal stenosis. L2-L3: There is mild disc bulge. There is no osseous neural foraminal area central canal stenosis. L3-L4: There is mild disc bulge. There is no osseous neural foraminal narrowing of central canal stenosis. L4-L5: There is marginal osteophyte formation at the neural foramina bilaterally. There is moderate bilateral neuroforaminal narrowing. L5-S1: There is no osseous neural foraminal narrowing or central canal stenosis. SOFT TISSUES: The left common iliac venous stent is noted. OTHER: None IMPRESSION: 1. POST SURGICAL CHANGE. 2. MILD DEGENERATIVE DISC DISEASE AND OSTEOARTHRITIS. 3. THERE IS NO FORAMINAL NARROWING AT L4-L5. THERE IS NO SIGNIFICANT OSSEOUS CENTRAL CANAL STENOSIS. 4. NO ACUTE OSSEOUS INJURY TO THE LUMBAR SPINE
[2016-08-09] MEDS ORDERED: Morphine INJ* 4 MG/ML 1 ML SYRINGE IM ONE (19:41)
[2016-08-09 20:16] VITALS: BP 114/85
--- NOTE | 2016-08-09 21:25 | ED ---
Marcus Sanchez Erika, scribed for Anurag Garcia MD on 08/09/16 at 1846 . Lower Extremity - HPI Summary HPI Summary: Patient is a 51-year-old female presenting to the ED with a CC of bilateral lower extremity pain starting yesterday, and worsening today. She describes pain in her thighs, and notes paresthesias in her toes. She also reports she cannot stand up due to shooting pain up her legs. Pain is aggravated by movement of the legs. She also notes pain in the lower back. Patient reports she had 3 seizures this morning, which she believes aggravated the pain. Hx back pain - had surgery in [place] in 2009. - History of Current Complaint Chief Complaint: EDExtremityLower Stated Complaint: SEIZURE Time Seen by Provider: 08/09/16 17:43 Hx Obtained From: Patient Hx Last Menstrual Period: 51 Y/O FEMALE Severity Currently: Moderate Pain Intensity: 9 Pain Scale Used: 0-10 Numeric Timing: Constant Location: Is Discrete @ - BLE Associated Signs And Symptoms: Positive: Other - tingling in toes, back pain Aggravating Factor(s): Standing, Ambulation, Movement Alleviating Factor(s): Nothing - Allergies/Home Medications Allergies/Adverse Reactions: Allergies Allergy/AdvReac Type Severity Reaction Status Date / Time Aspirin Allergy Intermediate Hives Verified 06/22/16 13:00 Cyclobenzaprine Allergy Intermediate Difficulty Verified 06/22/16 13:00 [From Flexeril] Swallowing Ketorolac Tromethamine Allergy Intermediate Difficulty Verified 06/22/16 13:00 [From Toradol] Swallowing Clonazepam [From Klonopin] Allergy Mild Rash Verified 06/22/16 13:00 NSAIDs Allergy Mild Itching Verified 06/22/16 13:00 Penicillins [PCN] Allergy Mild Rash Verified 06/22/16 13:00 Topiramate [From Topamax] AdvReac Mild Headache Verified 06/22/16 13:00 Erythromycin AdvReac See Comment Verified 06/22/16 13:00 [facility] [place] Allergy Severe Swelling Uncoded 06/22/16 13:00 Of Face,Lips,& Throat lidoderm Allergy Mild Rash Uncoded 06/22/16 13:00 tums AdvReac Mild Dizziness Uncoded 06/22/16 13:00 PMH/Surg Hx/FS Hx/Imm Hx Endocrine/Hematology History: Reports: Hx Anticoagulant Therapy - lovenox, 4 months Cardiovascular History: Reports: Hx Angina, Hx Deep Vein Thrombosis - 1993 left calf, Hx Syncope Respiratory History: Reports: Hx Pneumonia GI History: Reports: Hx Gall Bladder Disease - taken out 2012, Hx Gastroesophageal Reflux Disease, Hx Gastrointestinal Bleed Musculoskeletal History: Reports: Hx Back Problems - chronic back pain, T4-T5 fusion, Hx Fibromyalgia - 2005 Sensory History: Reports: Hx Contacts or Glasses - Reading Opthamlomology History: Reports: Hx Contacts or Glasses - Reading Neurological History: Reports: Hx Dementia, Hx Migraine, Hx Seizures, Other Neuro Impairments/Disorders - prev back surg, bells palsy, chronic back pain - L4-5 spinal fusion 2009 Psychiatric History: Reports: Hx Anxiety, Hx Depression - Surgical History Surgery Procedure, Year, and Place: [place]&C-[place] [facility] [place] [facility] [place] lumbar FUSION - 2009 [place]. TUBAL LIGATION 1997. Gall bladder 2012 Hx Anesthesia Reactions: No - Immunization History Date of Tetanus Vaccine: 04/27/15 Date of Influenza Vaccine: None Infectious Disease History: No Infectious Disease History: Denies: Hx Clostridium Difficile, Hx Hepatitis, Hx Human Immunodeficiency Virus (HIV), Hx of Known/Suspected MRSA, Hx Shingles, Hx Tuberculosis, Hx Known/ Suspected VRE, Hx Known/Suspected VRSA, History Other Infectious Disease, Traveled Outside the in Last 30 Days - Family History Known Family History: Positive: Cardiac Disease, Hypertension, Diabetes, Seizure Disorder - paternal, maternal, Other Family History: Mother alive in 60s with Hx of gallbladder CA, DVT. Father alive in 60s with Hx of CAD - Social History Alcohol Use: None Hx Substance Use: No Substance Use Type: Reports: None Hx Tobacco Use: Yes Smoking Status (MU): Light Every Day Tobacco Smoker Type: Cigarettes Amount Used/How Often: 4 Cigarettes/DAY Have You Smoked in the Last Year: Yes Review of Systems Positive: Myalgia - back pain, bilateral lower extremity pain Neurological: Other - 3 seizures this morning Positive: Paresthesia - toes All Other Systems Reviewed And Are Negative: Yes Physical Exam Triage Information Reviewed: Yes Vital Signs On Initial Exam: Initial Vitals Temp Pulse Resp BP Pulse Ox 98.9 F 115 30 118/80 100 08/09/16 16:55 08/09/16 16:55 08/09/16 16:55 08/09/16 16:55 08/09/16 16:55 Vital Signs Reviewed: Yes Appearance: Positive: Well-Appearing, No Pain Distress Skin: Positive: Warm, Skin Color Reflects Adequate Perfusion, Dry, Other - Healed scar from surgery on the back Head/Face: Positive: Normal Head/Face Inspection Eyes: Positive: Normal ENT: Positive: Normal ENT inspection Neck: Positive: Supple, Nontender Respiratory/Lung Sounds: Positive: Clear to Auscultation, Breath Sounds Present Cardiovascular: Positive: RRR - on exam Abdomen Description: Positive: Nontender, Soft Bowel Sounds: Positive: Present Musculoskeletal: Positive: Other - Positive straight leg raise bilaterally. Tender in the lower back Neurological: Positive: Normal Psychiatric: Positive: Affect/Mood Appropriate - [place] Coma Scale Coma Scale Total: 15 Diagnostics - Vital Signs Vital Signs Temp Pulse Resp BP Pulse Ox 08/09/16 16:56 98.9 F 115 30 118/80 100 08/09/16 16:55 98.9 F 115 30 118/80 100 - Laboratory Lab Statement: Any lab studies that have been ordered have been reviewed, and results considered in the medical decision making process. - CT CT L Spine CT Interpretation Completed By: Radiologist - IMPRESSION: 1. POST SURGICAL CHANGE. 2. MILD DEGENERATIVE DISC DISEASE AND OSTEOARTHRITIS. 3. THERE IS NO FORAMINAL NARROWING AT L4-L5. THERE IS NO SIGNIFICANT OSSEOUS CENTRAL CANAL STENOSIS. 4. NO ACUTE OSSEOUS INJURY TO THE LUMBAR SPINE Re-Evaluation - Re-Evaluation First Eval Re-Evaluation Time: 19:39 Comment: Discussed CT L spine results with patient. Patient agrees with plan to discharge Second Eval Re-Evaluation Time: 19:44 Comment: Patient now requests neurology consult. Will call Dr. Meeks. Third Eval Re-Evaluation Time: 20:03 Comment: Discussed Dr. Meeks's recommendations with patient. Lower Extremity Course/Dx - Course Course Of Treatment: Ms. Agosto's neurological exam is intact and her CT is unremarkable. I spoke with Dr. Meeks who knows her and she recommended outpatient F/U. - Diagnoses Provider Diagnoses: Low back pain - Physician Notifications Discussed Care of Patient With: Dr. Meeks (neurology) at 19:45 - discussed history. recommends discharge. Discharge - Discharge Plan Condition: Stable Disposition: HOME Patient Education Materials: Back Pain (ED) Referrals: Shanda Anglin MD [Primary Care Provider] - Additional Instructions: Please follow up with your PCP. The documentation as recorded by the Marcus blanco Erika accurately reflects the service I personally performed and the decisions made by me, Anurag Garcia MD.
== END 2016-08-09 20:15 | disposition home or self-care (01) ==
LOC: ED 16:46
DX: M51.34 Other intervertebral disc degeneration, thoracic region (principal); M54.5 Low back pain
CPT/HCPCS: 72131; 96372; 99282; J2270

== ENCOUNTER 2016-08-10 11:41 | Emergency (ER) | payer OTHER ==
[2016-08-10] MEDS ORDERED: Morphine INJ* 4 MG/ML 1 ML SYRINGE IM ONE (17:03)
[2016-08-10] MEDS ORDERED: oxyCODONE/Acetamin 5/325 MG* TAB PO ONE (17:03)
[2016-08-10] MEDS ORDERED: oxyCODONE TAB* 5 MG TAB PO ONE (18:35)
--- NOTE | 2016-08-10 18:42 | ED ---
Triston Sanchez Anna, scribed for Jelani Hurtado MD on 08/10/16 at 1633 . Lower Extremity - HPI Summary HPI Summary: Patient is a 51 y/o female coming to [facility] presenting with the gradual onset of worsening leg pain that began three days ago. She has had an increase in the number of her seizures lately, most recently having one last night and three yesterday morning. She believes this aggravates her leg pain. She presents today with bilateral leg weakness and stinging pain. The pain was not alleviated by the use of morphine yesterday. The pain is exacerbated by standing. Upon standing, she feels a shooting pain in her leg that extends to her back. She has not had numbness. She has also had acute on chronic back pain. At baseline, she has low back pain. Beginning three days ago, she has had bilateral middle back pain. Denies incontinence. She denies a Hx of spinal stenosis. - History of Current Complaint Chief Complaint: EDExtremityLower Stated Complaint: LEG PAIN, Hx Obtained From: Patient Hx Last Menstrual Period: 51 Y/O FEMALE Onset of Pain: Days Onset/Duration: Still Present Severity Initially: Moderate Severity Currently: Moderate Aggravating Factor(s): Standing - Allergies/Home Medications Allergies/Adverse Reactions: Allergies Allergy/AdvReac Type Severity Reaction Status Date / Time Aspirin Allergy Intermediate Hives Verified 06/22/16 13:00 Cyclobenzaprine Allergy Intermediate Difficulty Verified 06/22/16 13:00 [From Flexeril] Swallowing Ketorolac Tromethamine Allergy Intermediate Difficulty Verified 06/22/16 13:00 [From Toradol] Swallowing Clonazepam [From Klonopin] Allergy Mild Rash Verified 06/22/16 13:00 NSAIDs Allergy Mild Itching Verified 06/22/16 13:00 Penicillins [PCN] Allergy Mild Rash Verified 06/22/16 13:00 Topiramate [From Topamax] AdvReac Mild Headache Verified 06/22/16 13:00 Erythromycin AdvReac See Comment Verified 06/22/16 13:00 [place] Allergy Severe Swelling Uncoded 06/22/16 13:00 Of Face,Lips,& Throat lidoderm Allergy Mild Rash Uncoded 06/22/16 13:00 tums AdvReac Mild Dizziness Uncoded 06/22/16 13:00 PMH/Surg Hx/FS Hx/Imm Hx Endocrine/Hematology History: Reports: Hx Anticoagulant Therapy - lovenox, 4 months Denies: Hx Blood Disorders, Hx Blood Transfusions, Hx Bone Marrow Disease, Hx Diabetes, Hx Systemic Lupus Erythematosus, Hx Sickle Cell Disease, Hx Thyroid Disease, Hx Anemia, Hx Unexplained Bleeding Cardiovascular History: Reports: Hx Angina, Hx Deep Vein Thrombosis - 1993 left calf, Hx Syncope Denies: Hx Aneurysm, Hx Angioplasty, Hx Auto Implanted Cardiovert Defib, Hx Cardiac Arrest, Hx Cardiomegaly, Hx Congenital Heart Disease, Hx Congestive Heart Failure, Hx Coronary Artery Disease, Hx Embolism, Hx Hypercholesterolemia , Hx Hypotension, Hx Hypertension, Hx Myocardial Infarction, Hx Pacemaker/ICD, Hx Peripheral Vascular Disease, Hx Rheumatic Fever, Hx Valvular Heart Disease, Other Cardiovascular Problems/Disorders Respiratory History: Reports: Hx Pneumonia Denies: Hx Asthma, Hx Chronic Bronchitis, Hx Chronic Obstructive Pulmonary Disease (COPD), Hx Cystic Fibrosis, Hx Lung Cancer, Hx Pleural Effusion, Hx Pulmonary Edema, Hx Pulmonary Embolism, Hx Seasonal Allergies, Hx Sleep Apnea, Other Respiratory Problems/Disorders GI History: Reports: Hx Gall Bladder Disease - taken out 2012, Hx Gastroesophageal Reflux Disease, Hx Gastrointestinal Bleed Denies: Hx Cirrhosis, Hx Crohn's Disease, Hx Diverticulosis, Hx Hiatal Hernia , Hx Irritable Bowel, Hx Jaundice, Hx Obstructive Bowel, Hx Ileostomy, Hx Pyloric Stenosis, Hx Ulcer, Other GI Disorders History: Denies: Hx Acute Renal Failure, Hx Benign Prostatic Hyperplasia, Hx Chronic Renal Failure, Hx Dialysis, Hx Kidney Infection, Hx Kidney Stones, Hx Renal Disease, Other Problems/Disorders Musculoskeletal History: Reports: Hx Back Problems - chronic back pain, T4-T5 fusion, Hx Fibromyalgia - 2005 Denies: Hx Arthritis, Hx Bursitis, Hx Congenital Bone Abnormalities, Hx Gout , Hx Orthopedic Injury, Hx Osteoporosis, Hx Scoliosis, Hx Tendonitis Sensory History: Reports: Hx Contacts or Glasses - Reading Denies: Hx Cataracts, Hx Eye Injury, Hx Eye Prosthesis, Hx Glaucoma, Hx Legally Blind, Hx Macular Degeneration, Hx Vision Problem, Hx Deafness, Hx Hearing Aid, Hx Hearing Problem, Other Sensory Impairments Opthamlomology History: Reports: Hx Contacts or Glasses - Reading Denies: Hx Cataracts, Hx Eye Injury, Hx Eye Prosthesis, Hx Glaucoma, Hx Legally Blind, Hx Macular Degeneration, Hx Vision Problem, Other Sensory Impairments Neurological History: Reports: Hx Dementia, Hx Migraine, Hx Seizures, Other Neuro Impairments/Disorders - prev back surg, bells palsy, chronic back pain - L4-5 spinal fusion 2009 Denies: Hx Developmental Delay, Hx Headaches, Hx Nerve Disease, Hx Spinal Cord Injury, Hx Transient Ischemic Attacks (TIA) Psychiatric History: Reports: Hx Anxiety, Hx Depression Denies: Hx Attention Deficit Hyperactivity Disorder, Hx Eating Disorder, Hx Panic Disorder, Hx Post Traumatic Stress Disorder, Hx Inpatient Treatment, Hx Community Mental Health Tx, Hx Schizophrenia, Hx Bipolar Disorder, Hx Suicide Attempt, Hx of Violent Episodes Against Others, Hx Substance Abuse - Surgical History Surgery Procedure, Year, and Place: D&C-1987 [facility] [place] [facility] [place]. lumbar FUSION - 2009 [place]. TUBAL LIGATION 1997. Gall bladder 2012 Hx Anesthesia Reactions: No - Immunization History Date of Tetanus Vaccine: 04/27/15 Date of Influenza Vaccine: None Infectious Disease History: Denies: Hx Clostridium Difficile, Hx Hepatitis, Hx Human Immunodeficiency Virus (HIV), Hx of Known/Suspected MRSA, Hx Shingles, Hx Tuberculosis, Hx Known/ Suspected VRE, Hx Known/Suspected VRSA, History Other Infectious Disease, Traveled Outside the in Last 30 Days - Family History Known Family History: Positive: Cardiac Disease, Hypertension, Diabetes, Seizure Disorder - paternal, maternal, Other Family History: Mother alive in 60s with Hx of gallbladder CA, DVT. Father alive in 60s with Hx of CAD - Social History Alcohol Use: None Hx Substance Use: No Substance Use Type: Reports: None Hx Tobacco Use: Yes Smoking Status (MU): Light Every Day Tobacco Smoker Type: Cigarettes Amount Used/How Often: 4 Cigarettes/DAY Have You Smoked in the Last Year: Yes Review of Systems Positive: Myalgia - bilateral middle back pain Positive: Weakness, Paresthesia, Syncope - Seizures. Negative: Numbness Psychological: Normal All Other Systems Reviewed And Are Negative: Yes Physical Exam Triage Information Reviewed: Yes Vital Signs On Initial Exam: Initial Vitals Temp Pulse Resp BP Pulse Ox 97.8 F 110 16 137/102 99 08/10/16 11:58 08/10/16 11:58 08/10/16 11:58 08/10/16 11:58 08/10/16 11:58 Vital Signs Reviewed: Yes Appearance: Positive: Well-Appearing, Pain Distress - mild Skin: Positive: Warm, Skin Color Reflects Adequate Perfusion, Dry Head/Face: Positive: Normal Head/Face Inspection Eyes: Positive: EOMI, WILLIAMS ENT: Positive: Normal ENT inspection Neck: Positive: Supple, Nontender Respiratory/Lung Sounds: Positive: Clear to Auscultation, Breath Sounds Present Cardiovascular: Positive: RRR Abdomen Description: Positive: Nontender, Soft Bowel Sounds: Positive: Present Musculoskeletal: Positive: Other - Decreased strength with hip flexion with bilaterally decreased plantar flexion and dorsiflexion bilaterally. Neurological: Positive: Normal, Sensory/Motor Intact, Alert, Oriented to Person Place, Time Psychiatric: Positive: Affect/Mood Appropriate Diagnostics - Vital Signs Vital Signs Temp Pulse Resp BP Pulse Ox 08/10/16 15:07 97.6 F 101 15 155/100 99 08/10/16 11:58 97.8 F 110 16 137/102 99 - Laboratory Lab Statement: Any lab studies that have been ordered have been reviewed, and results considered in the medical decision making process. Re-Evaluation - Re-Evaluation First Eval Re-Evaluation Time: 17:01 Comment: Discussed potential options for pain management in the ED. Opted for oxycodone and morphine. Lower Extremity Course/Dx - Course Course Of Treatment: NO CRITICAL CARE TIME Assessment/Plan: DISCUSSED WITH DR ANTON. PATIENT'S PAIN IMPROVED AND SHE WAS THEN ABLE TO WALK WITH GOOD B/L LE STRENGTH. DISCHARGE HOME STABLE. - Diagnoses Provider Diagnoses: Low back pain - Physician Notifications Discussed Care of Patient With: Dr. Anton (neurologist) at 1646. Patient had a normal CT yesterday. Pain management will take place in the ED, and patient will be re-assessed to see if she can walk at that time. Discharge - Discharge Plan Condition: Stable Disposition: HOME Prescriptions: oxyCODONE/Acetamin 5/325 MG* [Percocet 5/325 TAB*] 1 tab PO Q6H PRN #10 tab MDD 4 PRN Reason: Pain Patient Education Materials: Back Pain (ED) Referrals: Shanda Anglin MD [Primary Care Provider] - Davin Morgan MD [Medical Doctor] - Additional Instructions: FOLLOW UP WITH YOUR DOCTOR. RETURN TO THE EMERGENCY DEPARTMENT FOR ANY WORSENING OF YOUR CONDITION OR QUESTIONS OR CONCERNS. The documentation as recorded by the Triston blanco Anna accurately reflects the service I personally performed and the decisions made by Bryant wolff William, MD.
[2016-08-10 19:02] VITALS: BP 127/94
== END 2016-08-10 18:55 | disposition home or self-care (01) ==
LOC: ED 11:41
DX: M54.5 Low back pain (principal); F17.210 Nicotine dependence, cigarettes, uncomplicated; Z88.0 Allergy status to penicillin; Z79.01 Long term (current) use of anticoagulants; F03.90 Unspecified dementia, unspecified severity, without behavioral disturbance, psychotic disturbance, mood disturbance, and anxiety
CPT/HCPCS: 96372; 99282; A9270-GY; J2270

== ENCOUNTER 2016-08-20 01:59 | Emergency (ER) | payer OTHER ==
[2016-08-20] MEDS ORDERED: NS 0.9% 1000 ML* 1,000 ML IV ONE (02:08)
[2016-08-20] MEDS ORDERED: Ondansetron INJ* 2 MG/ML VIAL IV ONE (02:08)
[2016-08-20 02:31] LABS: Hematocrit 35 % (35-47); Hemoglobin 11.6 g/dl (12.0-16.0); Mean Corpuscular HGB Conc 33 g/dl (31-36); Mean Corpuscular Hemoglobin 28 pg (27-31); Mean Corpuscular Volume 84 fL (80-97); Mean Platelet Volume 9 um3 (7.4-10.4); Red Cell Distribution Width 15 % (10.5-15)
[2016-08-20] MEDS ORDERED: Metoclopramide IV* 5 MG/ML 2 ML VIAL IV ONE (02:37)
[2016-08-20 02:48] LABS: Albumin 3.7 g/dL (3.2-5.2); BUN/Creatinine Ratio 11.5 (8-20); C Reactive Protein 7.75 mg/L (< 5.00); Calcium 8.7 mg/dL (8.6-10.3); EGFR African American 159.9 (>60); EGFR Non-African American 124.3 (>60); Globulin 3.1 g/dL (2-4); Magnesium 1.9 mg/dL (1.9-2.7); Potassium 3.1 mmol/L (3.5-5.0); Total Bilirubin 0.5 mg/dL (0.2-1.0); Total Protein 6.8 g/dL (6.4-8.9)
--- NOTE | 2016-08-20 03:11 | ED ---
Jennifer Sanchez Matthew, scribed for Clive Walter MD on 08/20/16 at 0206 . HPI Chest Pain - HPI Summary HPI Summary: A 51 y/o female presents to the ED by EMS with nausea, vomit, chest pain since 24:00. . Associated symptoms include nausea and vomiting. - History of Current Complaint Chief Complaint: EDChestPainROMI Hx Obtained From: Patient Onset/Duration: Started Hours Ago, Started Days Ago, Atraumatic, Still Present Time of Onset: 00:00 Timing: Constant Initial Severity: Moderate Current Severity: Moderate Pain Intensity: 10 Pain Scale Used: 0-10 Numeric Chest Pain Location: Mid Sternal Chest Pain Radiates: Yes Chest Pain Radiates To:: Arm - LT Aggravating Factor(s): Nothing Alleviating Factor(s): Nothing Associated Signs and Symptoms: Positive: Chest Pain, Nausea, Vomiting - Additional Pertinent History Primary Care Physician: [id number] - Allergy/Home Medications Allergies/Adverse Reactions: Allergies Allergy/AdvReac Type Severity Reaction Status Date / Time Aspirin Allergy Intermediate Hives Verified 08/20/16 02:02 Cyclobenzaprine Allergy Intermediate Difficulty Verified 08/20/16 02:02 [From Flexeril] Swallowing Ketorolac Tromethamine Allergy Intermediate Difficulty Verified 08/20/16 02:02 [From Toradol] Swallowing Clonazepam [From Klonopin] Allergy Mild Rash Verified 08/20/16 02:02 NSAIDs Allergy Mild Itching Verified 08/20/16 02:02 Penicillins [PCN] Allergy Mild Rash Verified 08/20/16 02:02 Topiramate [From Topamax] AdvReac Mild Headache Verified 08/20/16 02:02 Erythromycin AdvReac See Comment Verified 08/20/16 02:02 [email or web address] Allergy Severe Swelling Uncoded 08/20/16 02:02 Of Face,Lips,& Throat lidoderm Allergy Mild Rash Uncoded 08/20/16 02:02 tums AdvReac Mild Dizziness Uncoded 08/20/16 02:02 PMH/Surg Hx/FS Hx/Imm Hx Endocrine/Hematology History: Reports: Hx Anticoagulant Therapy - lovenox, 4 months Denies: Hx Blood Disorders, Hx Blood Transfusions, Hx Bone Marrow Disease, Hx Diabetes, Hx Systemic Lupus Erythematosus, Hx Sickle Cell Disease, Hx Thyroid Disease, Hx Anemia, Hx Unexplained Bleeding Cardiovascular History: Reports: Hx Angina, Hx Deep Vein Thrombosis - 1993 left calf, Hx Syncope Denies: Hx Aneurysm, Hx Angioplasty, Hx Auto Implanted Cardiovert Defib, Hx Cardiac Arrest, Hx Cardiomegaly, Hx Congenital Heart Disease, Hx Congestive Heart Failure, Hx Coronary Artery Disease, Hx Embolism, Hx Hypercholesterolemia , Hx Hypotension, Hx Hypertension, Hx Myocardial Infarction, Hx Pacemaker/ICD, Hx Peripheral Vascular Disease, Hx Rheumatic Fever, Hx Valvular Heart Disease, Other Cardiovascular Problems/Disorders Respiratory History: Reports: Hx Pneumonia Denies: Hx Asthma, Hx Chronic Bronchitis, Hx Chronic Obstructive Pulmonary Disease (COPD), Hx Cystic Fibrosis, Hx Lung Cancer, Hx Pleural Effusion, Hx Pulmonary Edema, Hx Pulmonary Embolism, Hx Seasonal Allergies, Hx Sleep Apnea, Other Respiratory Problems/Disorders GI History: Reports: Hx Gall Bladder Disease - taken out 2012, Hx Gastroesophageal Reflux Disease, Hx Gastrointestinal Bleed Denies: Hx Cirrhosis, Hx Crohn's Disease, Hx Diverticulosis, Hx Hiatal Hernia , Hx Irritable Bowel, Hx Jaundice, Hx Obstructive Bowel, Hx Ileostomy, Hx Pyloric Stenosis, Hx Ulcer, Other GI Disorders History: Denies: Hx Acute Renal Failure, Hx Benign Prostatic Hyperplasia, Hx Chronic Renal Failure, Hx Dialysis, Hx Kidney Infection, Hx Kidney Stones, Hx Renal Disease, Other Problems/Disorders Musculoskeletal History: Reports: Hx Back Problems - chronic back pain, T4-T5 fusion, Hx Fibromyalgia - 2005 Denies: Hx Arthritis, Hx Bursitis, Hx Congenital Bone Abnormalities, Hx Gout , Hx Orthopedic Injury, Hx Osteoporosis, Hx Scoliosis, Hx Tendonitis Sensory History: Reports: Hx Contacts or Glasses - Reading Denies: Hx Cataracts, Hx Eye Injury, Hx Eye Prosthesis, Hx Glaucoma, Hx Legally Blind, Hx Macular Degeneration, Hx Vision Problem, Hx Deafness, Hx Hearing Aid, Hx Hearing Problem, Other Sensory Impairments Opthamlomology History: Reports: Hx Contacts or Glasses - Reading Denies: Hx Cataracts, Hx Eye Injury, Hx Eye Prosthesis, Hx Glaucoma, Hx Legally Blind, Hx Macular Degeneration, Hx Vision Problem, Other Sensory Impairments Neurological History: Reports: Hx Dementia, Hx Migraine, Hx Seizures, Other Neuro Impairments/Disorders - prev back surg, bells palsy, chronic back pain - L4-5 spinal fusion 2009 Denies: Hx Developmental Delay, Hx Headaches, Hx Nerve Disease, Hx Spinal Cord Injury, Hx Transient Ischemic Attacks (TIA) Psychiatric History: Reports: Hx Anxiety, Hx Depression Denies: Hx Attention Deficit Hyperactivity Disorder, Hx Eating Disorder, Hx Panic Disorder, Hx Post Traumatic Stress Disorder, Hx Inpatient Treatment, Hx Community Mental Health Tx, Hx Schizophrenia, Hx Bipolar Disorder, Hx Suicide Attempt, Hx of Violent Episodes Against Others, Hx Substance Abuse - Surgical History Surgery Procedure, Year, and Place: D&C-1987 [facility] – [place]. - 1997 [facility] [place]. lumbar FUSION - 2009 [place]. TUBAL LIGATION 1997. Gall bladder 2012 Hx Anesthesia Reactions: No - Immunization History Date of Tetanus Vaccine: 04/27/15 Date of Influenza Vaccine: None Infectious Disease History: Denies: Hx Clostridium Difficile, Hx Hepatitis, Hx Human Immunodeficiency Virus (HIV), Hx of Known/Suspected MRSA, Hx Shingles, Hx Tuberculosis, Hx Known/ Suspected VRE, Hx Known/Suspected VRSA, History Other Infectious Disease - Family History Known Family History: Positive: Cardiac Disease, Hypertension, Diabetes, Seizure Disorder - paternal, maternal, Other Family History: Mother alive in 60s with Hx of gallbladder CA, DVT. Father alive in 60s with Hx of CAD - Social History Alcohol Use: None Hx Substance Use: No Substance Use Type: Reports: None Hx Tobacco Use: Yes Smoking Status (MU): Light Every Day Tobacco Smoker Type: Cigarettes Amount Used/How Often: 4 Cigarettes/DAY Have You Smoked in the Last Year: Yes Review of Systems Constitutional: Negative Eyes: Negative ENT: Negative Positive: Chest Pain Respiratory: Negative Positive: Vomiting, Nausea Genitourinary: Negative Musculoskeletal: Negative Skin: Negative Neurological: Negative Psychological: Normal All Other Systems Reviewed And Are Negative: Yes Physical Exam Triage Information Reviewed: Yes Vital Signs On Initial Exam: Initial Vitals Temp Pulse Resp BP Pulse Ox 99.2 F 103 19 164/100 100 08/20/16 02:00 08/20/16 02:00 08/20/16 02:00 08/20/16 02:00 08/20/16 02:00 Vital Signs Reviewed: Yes Appearance: Positive: Well-Appearing, No Pain Distress Skin: Positive: Warm Head/Face: Positive: Normal Head/Face Inspection Eyes: Positive: EOMI, WILLIAMS ENT: Positive: Hearing grossly normal Neck: Positive: Supple Respiratory/Lung Sounds: Positive: Clear to Auscultation, Breath Sounds Present Cardiovascular: Positive: RRR Abdomen Description: Positive: Nontender, Soft Bowel Sounds: Positive: Present Musculoskeletal: Positive: Strength/ROM Intact Neurological: Positive: Sensory/Motor Intact, Alert, Oriented to Person Place, Time Diagnostics - Vital Signs Vital Signs Temp Pulse Resp BP Pulse Ox 08/20/16 02:24 90 22 08/20/16 02:00 99.2 F 103 19 164/100 100 - Laboratory Lab Results: Lab Results 08/20/16 08/20/16 08/20/16 Range/Units 02:20 02:20 02:20 WBC 4.0 (3.5-10.8) 10^3/ul RBC 4.20 (4.0-5.4) 10^6/ul Hgb 11.6 L (12.0-16.0) g/dl Hct 35 (35-47) % MCV 84 (80-97) fL MCH 28 (27-31) pg MCHC 33 (31-36) g/dl RDW 15 (10.5-15) % Plt Count 244 (150-450) 10^3/ul MPV 9 (7.4-10.4) um3 Neut % (Auto) 71.7 (38-83) % Lymph % (Auto) 8.0 L (25-47) % Charles % (Auto) 7.0 (1-9) % Eos % (Auto) 5.6 (0-6) % Baso % (Auto) 7.7 H (0-2) % Absolute Neuts (auto) 2.9 (1.5-7.7) 10^3/ul Absolute Lymphs (auto) 0.3 L (1.0-4.8) 10^3/ul Absolute Monos (auto) 0.3 (0-0.8) 10^3/ul Absolute Eos (auto) 0.2 (0-0.6) 10^3/ul Absolute Basos (auto) 0.3 H (0-0.2) 10^3/ul Absolute Nucleated RBC 0 10^3/ul Nucleated RBC % 0.1 Sodium 138 (133-145) mmol/L Potassium 3.1 L (3.5-5.0) mmol/L Chloride 104 (101-111) mmol/L Carbon Dioxide 24 (22-32) mmol/L Anion Gap 10 (2-11) mmol/L BUN 6 (6-24) mg/dL Creatinine 0.52 (0.51-0.95) mg/dL Est GFR ( Amer) 159.9 (>60) Est GFR (Non-Af Amer) 124.3 (>60) BUN/Creatinine Ratio 11.5 (8-20) Glucose 108 H (70-100) mg/dL Lactic Acid 1.0 (0.5-2.0) mmol/L Calcium 8.7 (8.6-10.3) mg/dL Magnesium 1.9 (1.9-2.7) mg/dL Total Bilirubin 0.50 (0.2-1.0) mg/dL AST 80 H (13-39) U/L ALT 361 H (7-52) U/L Alkaline Phosphatase 150 H (34-104) U/L Troponin I 0.00 (<0.04) ng/mL C-Reactive Protein 7.75 H (< 5.00) mg/L Total Protein 6.8 (6.4-8.9) g/dL Albumin 3.7 (3.2-5.2) g/dL Globulin 3.1 (2-4) g/dL Albumin/Globulin Ratio 1.2 (1-3) Lipase 27 (11.0-82.0) U/L Result Diagrams: 08/20/16 02:20 08/20/16 02:20 Lab Statement: Any lab studies that have been ordered have been reviewed, and results considered in the medical decision making process. - EKG 02:00 Cardiac Rate: Tachycardia - 102 bpm EKG Rhythm: Sinus Tachycardia EKG Interpretation: No STEMI Chest Pain Course/Dx - Course Assessment/Plan: A 51 y/o female presents to the ED by EMS with sudden, constant chest pain since 24:00. The pain is rated 10/10 in severity and radiates into the left arm. Associated symptoms include nausea and vomiting. Labs were reviewed and the patients troponin was 0.00. EKG showed sinus tachycardia. In the ED course, the patient was given IV fluids, Reglan, and Zofran. The patient did well in the ED and will be discharged home to follow-up with her PCP. - Diagnoses Provider Diagnoses: Vomiting Discharge - Discharge Plan Condition: Stable Disposition: HOME Patient Education Materials: Chest Pain (ED), Acute Nausea and Vomiting (ED) Referrals: Shanda Anglin MD [Primary Care Provider] - 2 Days Additional Instructions: Please follow-up with your primary care physician in 2 days. The documentation as recorded by the Jennifer blanco Matthew accurately reflects the service I personally performed and the decisions made by me, Clive Walter MD.
[2016-08-20 04:37] VITALS: BP 155/105
== END 2016-08-20 04:39 | disposition home or self-care (01) ==
LOC: ED 01:59
DX: R11.2 Nausea with vomiting, unspecified (principal); R07.9 Chest pain, unspecified; F17.210 Nicotine dependence, cigarettes, uncomplicated
CPT/HCPCS: 36415; 80053; 83605; 83690; 83735; 84484; 85025; 86140; 93005; 99282; J2405

== ENCOUNTER 2016-08-26 15:48 | Emergency (ER) | payer OTHER ==
[2016-08-26 16:39] VITALS: BP 128/78
[2016-08-26] MEDS ORDERED: NS 0.9% 1000 ML* 1,000 ML IV ONE (17:06)
[2016-08-26] MEDS ORDERED: HYDROmorphone* 1 MG/ML 1 ML SYR IV ONE (17:06)
[2016-08-26] MEDS ORDERED: Ondansetron INJ* 2 MG/ML VIAL IV ONE (17:06)
[2016-08-26 18:18] LABS: Urine Bacteria 2+ (Absent); Urine Bilirubin Negative (Negative); Urine Glucose Negative (Negative); Urine Nitrite Negative (Negative)
--- NOTE | 2016-08-26 18:19 | RAD ---
HISTORY: Bleeding and pain, right lower quadrant pain COMPARISONS: May 12, 2016 TECHNIQUE: Multiple transverse and longitudinal ultrasound images were obtained of the pelvis using grayscale, color Doppler, and spectral Doppler imaging using the endovaginal transducer. FINDINGS: UTERUS: The uterus measures 6.4 x 3.2 x 5 cm. The uterus is normal in shape, size, contour, and echotexture. ENDOMETRIUM: The endometrial stripe is smooth. The endometrium measures 0.5 cm in thickness. There is a small amount of fluid within the endometrial cavity CUL-DE-SAC: There is no free fluid within the cul-de-sac. RIGHT OVARY: The right ovary measures 2.1 x 1 x 1.5 cm. Normal arterial and venous waveforms are identifiable within the ovary on spectral Doppler imaging. LEFT OVARY: The left ovary is not well-visualized BLADDER: The bladder is not well visualized. IMPRESSION: 1. LIMITED STUDY. 2. SMALL AMOUNT OF FLUID WITHIN THE ENDOMETRIAL CAVITY. THIS IS NOT EXPECTED TO BE PHYSIOLOGIC WITHIN A POSTMENOPAUSAL FEMALE. 3. THE LEFT OVARY IS NOT WELL-VISUALIZED
[2016-08-26] MEDS ORDERED: Morphine INJ* 4 MG/ML 1 ML SYRINGE IM ONE (18:37)
[2016-08-26 20:28] LABS: Hematocrit 32 % (35-47); Hemoglobin 10.5 g/dl (12.0-16.0); Mean Corpuscular HGB Conc 33 g/dl (31-36); Mean Corpuscular Hemoglobin 27 pg (27-31); Mean Corpuscular Volume 84 fL (80-97); Mean Platelet Volume 8 um3 (7.4-10.4); Red Blood Count 3.83 10^6/ul (4.0-5.4); Red Cell Distribution Width 16 % (10.5-15); White Blood Count 3.7 10^3/ul (3.5-10.8)
[2016-08-26 20:44] LABS: Albumin 3.7 g/dL (3.2-5.2); BUN/Creatinine Ratio 9.1 (8-20); Calcium 8.8 mg/dL (8.6-10.3); EGFR African American 193.9 (>60); EGFR Non-African American 150.8 (>60); Globulin 2.8 g/dL (2-4); Potassium 3.4 mmol/L (3.5-5.0); Total Bilirubin 0.4 mg/dL (0.2-1.0); Total Protein 6.5 g/dL (6.4-8.9)
--- NOTE | 2016-08-26 22:46 | RAD ---
CLINICAL HISTORY: Diverticulitis, abdominal pain COMPARISON: July 09, 2016 TECHNIQUE: Multiple contiguous axial CT scans were obtained of the abdomen and pelvis, without intravenous contrast enhancement. Coronal and sagittal multiplanar reformations are submitted for review. Oral contrast was administered. FINDINGS: The study is limited by the lack of intravenous contrast. This limits evaluation of the solid organs and vasculature. LUNG BASES: The lung bases are clear. LIVER: The liver is normal in shape, size, contour, and attenuation. BILE DUCTS: There is no intrahepatic or extrahepatic biliary dilatation. GALLBLADDER: The gallbladder is not visualized. Surgical clips are noted in the gallbladder fossa. PANCREAS: The pancreas is normal, without mass or ductal dilatation. SPLEEN: Normal in size and appearance. UPPER GI TRACT: Evaluation of the gastrointestinal tract is limited by incomplete gastric distention. There is a small sliding hilum hernia SMALL BOWEL AND MESENTERY: The small bowel is normal in contour, course, and caliber. There is no obstruction or dilatation. COLON: The colon is normal in contour, course, caliber. There is no pericolonic inflammatory change. ADRENALS: Normal bilaterally. KIDNEYS: The kidneys are normal in shape, size, contour, and axis. There is no hydronephrosis or nephrolithiasis. BLADDER: The bladder is smooth in contour. PELVIC ORGANS: The uterus and adnexa are grossly normal for technique. AORTA: The aorta is normal. IVC: A stent is noted of the left common iliac vein LYMPH NODES: There is no lymphadenopathy by size criteria. ABDOMINAL WALL: There is no evidence for abdominal wall hernia. BONES AND SOFT TISSUES: The patient is status post laminectomy and spinal fusion. There are multiple subcutaneous hematomas likely related to subcutaneous injection. There is subcutaneous varices of the lower abdomen OTHER: None IMPRESSION: STATUS POST CHOLECYSTECTOMY. NO ACUTE CT PATHOLOGY OF THE VISUALIZED ABDOMEN AND PELVIS
--- NOTE | 2016-08-26 23:56 | ED ---
Palma Sanchez Alok, scribed for Mookie Clemons on 08/26/16 at 2116 . Progress - Progress Note Progress Note: Pt with vaginal bleeding signed out following labs and US. Pt complains of LLQ tenderness Abd/Pel CT - IMPRESSION: STATUS POST CHOLECYSTECTOMY. NO ACUTE CT PATHOLOGY OF THE VISUALIZED ABDOMEN AND PELVIS - Results/Orders Results/Orders: Vaginal bleeding signed out to follow labs and US. Pt c/o LLQ tenderness. CT done. No acute abd. Will discharge to FU with PCP and OBGYN. Pt will go home and agrees with plan. - EKG/XRAY/CT CT: Abd/Pel CT - See Note Re-Evaluation - Re-Evaluation First Eval Re-Evaluation Time: 21:15 Change: Unchanged Comment: Pt c/o abd tenderness Course/Dx - Diagnoses Provider Diagnoses: Vaginal bleeding The documentation as recorded by the Palma blanco Alok accurately reflects the service I personally performed and the decisions made by , Mookie Clemons.
--- NOTE | 2016-08-27 08:51 | ED ---
Jennifer Sanchez Matthew, scribed for Anurag Garcia MD on 08/26/16 at 1738 . GI/ HPI - HPI Summary HPI Summary: A 51 y/o female presents to the ED with vaginal bleeding since 13:00 this morning. She states that she has saturated 4 pads. Associated symptoms include upper abdominal pain described as sharp. The patient denies blood w/ stool. The pain is worse with movement. Hx of lower back surgery and cholecystectomy. She no longer has periods and her LNMP was 3 years ago. - History of Current Complaint Chief Complaint: EDVaginalBleeding Time Seen by Provider: 08/26/16 16:46 Stated Complaint: ABD PAIN,VAG BLEEDING Hx Obtained From: Patient Onset/Duration: Started Days Ago, Atraumatic, Still Present Timing: Constant Severity: Moderate Current Severity: Moderate Pain Intensity: 6 Location of Pain: Diffuse - upper abdominal pain Pain Characteristics: Sharp Associated Signs and Symptoms: Positive: Abdominal Pain, Other: - Vaginal bleeding;. Negative: Blood-Streaked Stool, Black Tarry Stool, Bright Red Blood w/Stool - Additional Pertinent History Primary Care Physician: [id number] - Allergy/Home Medications Allergies/Adverse Reactions: Allergies Allergy/AdvReac Type Severity Reaction Status Date / Time Aspirin Allergy Intermediate Hives Verified 08/20/16 02:02 Cyclobenzaprine Allergy Intermediate Difficulty Verified 08/20/16 02:02 [From Flexeril] Swallowing Ketorolac Tromethamine Allergy Intermediate Difficulty Verified 08/20/16 02:02 [From Toradol] Swallowing Clonazepam [From Klonopin] Allergy Mild Rash Verified 08/20/16 02:02 NSAIDs Allergy Mild Itching Verified 08/20/16 02:02 Penicillins [PCN] Allergy Mild Rash Verified 08/20/16 02:02 Topiramate [From Topamax] AdvReac Mild Headache Verified 08/20/16 02:02 Erythromycin AdvReac See Comment Verified 08/20/16 02:02 [email or web address] Allergy Severe Swelling Uncoded 08/20/16 02:02 Of Face,Lips,& Throat lidoderm Allergy Mild Rash Uncoded 08/20/16 02:02 tums AdvReac Mild Dizziness Uncoded 08/20/16 02:02 PMH/Surg Hx/FS Hx/Imm Hx Endocrine/Hematology History: Reports: Hx Anticoagulant Therapy - lovenox, 4 months Denies: Hx Blood Disorders, Hx Blood Transfusions, Hx Bone Marrow Disease, Hx Diabetes, Hx Systemic Lupus Erythematosus, Hx Sickle Cell Disease, Hx Thyroid Disease, Hx Anemia, Hx Unexplained Bleeding Cardiovascular History: Reports: Hx Angina, Hx Deep Vein Thrombosis - 1993 left calf, Hx Syncope Denies: Hx Aneurysm, Hx Angioplasty, Hx Auto Implanted Cardiovert Defib, Hx Cardiac Arrest, Hx Cardiomegaly, Hx Congenital Heart Disease, Hx Congestive Heart Failure, Hx Coronary Artery Disease, Hx Embolism, Hx Hypercholesterolemia , Hx Hypotension, Hx Hypertension, Hx Myocardial Infarction, Hx Pacemaker/ICD, Hx Peripheral Vascular Disease, Hx Rheumatic Fever, Hx Valvular Heart Disease, Other Cardiovascular Problems/Disorders Respiratory History: Reports: Hx Pneumonia Denies: Hx Asthma, Hx Chronic Bronchitis, Hx Chronic Obstructive Pulmonary Disease (COPD), Hx Cystic Fibrosis, Hx Lung Cancer, Hx Pleural Effusion, Hx Pulmonary Edema, Hx Pulmonary Embolism, Hx Seasonal Allergies, Hx Sleep Apnea, Other Respiratory Problems/Disorders GI History: Reports: Hx Gall Bladder Disease - taken out 2012, Hx Gastroesophageal Reflux Disease, Hx Gastrointestinal Bleed Denies: Hx Cirrhosis, Hx Crohn's Disease, Hx Diverticulosis, Hx Hiatal Hernia , Hx Irritable Bowel, Hx Jaundice, Hx Obstructive Bowel, Hx Ileostomy, Hx Pyloric Stenosis, Hx Ulcer, Other GI Disorders History: Denies: Hx Acute Renal Failure, Hx Benign Prostatic Hyperplasia, Hx Chronic Renal Failure, Hx Dialysis, Hx Kidney Infection, Hx Kidney Stones, Hx Renal Disease, Other Problems/Disorders Musculoskeletal History: Reports: Hx Back Problems - chronic back pain, T4-T5 fusion, Hx Fibromyalgia - 2005 Denies: Hx Arthritis, Hx Bursitis, Hx Congenital Bone Abnormalities, Hx Gout , Hx Orthopedic Injury, Hx Osteoporosis, Hx Scoliosis, Hx Tendonitis Sensory History: Reports: Hx Contacts or Glasses - Reading Denies: Hx Cataracts, Hx Eye Injury, Hx Eye Prosthesis, Hx Glaucoma, Hx Legally Blind, Hx Macular Degeneration, Hx Vision Problem, Hx Deafness, Hx Hearing Aid, Hx Hearing Problem, Other Sensory Impairments Opthamlomology History: Reports: Hx Contacts or Glasses - Reading Denies: Hx Cataracts, Hx Eye Injury, Hx Eye Prosthesis, Hx Glaucoma, Hx Legally Blind, Hx Macular Degeneration, Hx Vision Problem, Other Sensory Impairments Neurological History: Reports: Hx Dementia, Hx Migraine, Hx Seizures, Other Neuro Impairments/Disorders - prev back surg, bells palsy, chronic back pain - L4-5 spinal fusion 2009 Denies: Hx Developmental Delay, Hx Headaches, Hx Nerve Disease, Hx Spinal Cord Injury, Hx Transient Ischemic Attacks (TIA) Psychiatric History: Reports: Hx Anxiety, Hx Depression Denies: Hx Attention Deficit Hyperactivity Disorder, Hx Eating Disorder, Hx Panic Disorder, Hx Post Traumatic Stress Disorder, Hx Inpatient Treatment, Hx Community Mental Health Tx, Hx Schizophrenia, Hx Bipolar Disorder, Hx Suicide Attempt, Hx of Violent Episodes Against Others, Hx Substance Abuse - Surgical History Surgery Procedure, Year, and Place: D&C-1987 [facility] [place]. - 1997 [facility] [place]. lumbar FUSION - 2009 [facility]. TUBAL LIGATION 1997. Gall bladder 2012 Hx Anesthesia Reactions: No - Immunization History Date of Tetanus Vaccine: 04/27/15 Date of Influenza Vaccine: None Infectious Disease History: Denies: Hx Clostridium Difficile, Hx Hepatitis, Hx Human Immunodeficiency Virus (HIV), Hx of Known/Suspected MRSA, Hx Shingles, Hx Tuberculosis, Hx Known/ Suspected VRE, Hx Known/Suspected VRSA, History Other Infectious Disease, Traveled Outside the [place] in Last 30 Days - Family History Known Family History: Positive: Cardiac Disease, Hypertension, Diabetes, Seizure Disorder - paternal, maternal, Other Family History: Mother alive in 60s with Hx of gallbladder CA, DVT. Father alive in 60s with Hx of CAD - Social History Alcohol Use: None Hx Substance Use: No Substance Use Type: Reports: None Hx Tobacco Use: Yes Smoking Status (MU): Light Every Day Tobacco Smoker Type: Cigarettes Amount Used/How Often: 4 Cigarettes/DAY Have You Smoked in the Last Year: Yes Review of Systems Constitutional: Negative Eyes: Negative ENT: Negative Cardiovascular: Negative Respiratory: Negative Positive: Abdominal Pain Genitourinary: Other - Vaginal Bleeding Musculoskeletal: Negative Skin: Negative Neurological: Negative Psychological: Normal All Other Systems Reviewed And Are Negative: Yes Physical Exam Triage Information Reviewed: Yes Vital Signs On Initial Exam: Initial Vitals Temp Pulse Resp BP Pulse Ox 98.5 F 102 20 128/78 100 08/26/16 16:35 08/26/16 16:35 08/26/16 16:35 08/26/16 16:35 08/26/16 16:35 Vital Signs Reviewed: Yes Appearance: Positive: Well-Appearing, Pain Distress - mild Skin: Positive: Warm, Skin Color Reflects Adequate Perfusion, Dry Head/Face: Positive: Normal Head/Face Inspection Eyes: Positive: EOMI, WILLIAMS ENT: Positive: Normal ENT inspection Neck: Positive: Supple, Nontender Respiratory/Lung Sounds: Positive: Clear to Auscultation, Breath Sounds Present Cardiovascular: Positive: RRR Abdomen Description: Positive: Soft, Other: - Tenderness of the RUQ and RUL Bowel Sounds: Positive: Present Musculoskeletal: Positive: Strength/ROM Intact Neurological: Positive: Alert, Oriented to Person Place, Time Psychiatric: Positive: Affect/Mood Appropriate Diagnostics - Vital Signs Vital Signs Temp Pulse Resp BP Pulse Ox 08/26/16 16:39 98.5 F 102 20 128/78 100 08/26/16 16:35 98.5 F 102 20 128/78 100 - Laboratory Lab Results: Lab Results 08/26/16 08/26/16 08/26/16 Range/Units 17:50 20:20 20:20 WBC 3.7 (3.5-10.8) 10^3/ul RBC 3.83 L (4.0-5.4) 10^6/ul Hgb 10.5 L (12.0-16.0) g/dl Hct 32 L (35-47) % MCV 84 (80-97) fL MCH 27 (27-31) pg MCHC 33 (31-36) g/dl RDW 16 H (10.5-15) % Plt Count 313 (150-450) 10^3/ul MPV 8 (7.4-10.4) um3 Neut % (Auto) 56.8 (38-83) % Lymph % (Auto) 33.1 (25-47) % Isabella % (Auto) 8.2 (1-9) % Eos % (Auto) 1.1 (0-6) % Baso % (Auto) 0.8 (0-2) % Absolute Neuts (auto) 2.1 (1.5-7.7) 10^3/ul Absolute Lymphs (auto) 1.2 (1.0-4.8) 10^3/ul Absolute Monos (auto) 0.3 (0-0.8) 10^3/ul Absolute Eos (auto) 0 (0-0.6) 10^3/ul Absolute Basos (auto) 0 (0-0.2) 10^3/ul Absolute Nucleated RBC 0 10^3/ul Nucleated RBC % 0 INR (Anticoag Therapy) 1.02 (0.89-1.11) APTT 27.4 (26.0-36.3) seconds Sodium (133-145) mmol/L Potassium (3.5-5.0) mmol/L Chloride (101-111) mmol/L Carbon Dioxide (22-32) mmol/L Anion Gap (2-11) mmol/L BUN (6-24) mg/dL Creatinine (0.51-0.95) mg/dL Est GFR ( Amer) (>60) Est GFR (Non-Af Amer) (>60) BUN/Creatinine Ratio (8-20) Glucose (70-100) mg/dL Lactic Acid (0.5-2.0) mmol/L Calcium (8.6-10.3) mg/dL Total Bilirubin (0.2-1.0) mg/dL AST (13-39) U/L ALT (7-52) U/L Alkaline Phosphatase (34-104) U/L Total Protein (6.4-8.9) g/dL Albumin (3.2-5.2) g/dL Globulin (2-4) g/dL Albumin/Globulin Ratio (1-3) Beta HCG, Quant mIU/mL Urine Color Straw Urine Appearance Clear Urine pH 8.0 (5-9) Ur Specific [place] 1.006 L (1.010-1.030) Urine Protein Negative (Negative) Urine Ketones Negative (Negative) Urine Blood 3+ H (Negative) Urine Nitrate Negative (Negative) Urine Bilirubin Negative (Negative) Urine Urobilinogen Negative (Negative) Ur Leukocyte Esterase Trace H (Negative) Urine WBC (Auto) Trace(0-5/hpf) (Absent) Urine RBC (Auto) 2+(6-10/hpf) H (Absent) Ur Squamous Epith Cells Present H (Absent) Urine Bacteria 2+ H (Absent) Urine Glucose Negative (Negative) 08/26/16 08/26/16 Range/Units 20:20 20:20 WBC (3.5-10.8) 10^3/ul RBC (4.0-5.4) 10^6/ul Hgb (12.0-16.0) g/dl Hct (35-47) % MCV (80-97) fL MCH (27-31) pg MCHC (31-36) g/dl RDW (10.5-15) % Plt Count (150-450) 10^3/ul MPV (7.4-10.4) um3 Neut % (Auto) (38-83) % Lymph % (Auto) (25-47) % Isabella % (Auto) (1-9) % Eos % (Auto) (0-6) % Baso % (Auto) (0-2) % Absolute Neuts (auto) (1.5-7.7) 10^3/ul Absolute Lymphs (auto) (1.0-4.8) 10^3/ul Absolute Monos (auto) (0-0.8) 10^3/ul Absolute Eos (auto) (0-0.6) 10^3/ul Absolute Basos (auto) (0-0.2) 10^3/ul Absolute Nucleated RBC 10^3/ul Nucleated RBC % INR (Anticoag Therapy) (0.89-1.11) APTT (26.0-36.3) seconds Sodium 135 (133-145) mmol/L Potassium 3.4 L (3.5-5.0) mmol/L Chloride 106 (101-111) mmol/L Carbon Dioxide 24 (22-32) mmol/L Anion Gap 5 (2-11) mmol/L BUN 4 L (6-24) mg/dL Creatinine 0.44 L (0.51-0.95) mg/dL Est GFR ( Amer) 193.9 (>60) Est GFR (Non-Af Amer) 150.8 (>60) BUN/Creatinine Ratio 9.1 (8-20) Glucose 101 H (70-100) mg/dL Lactic Acid 0.5 (0.5-2.0) mmol/L Calcium 8.8 (8.6-10.3) mg/dL Total Bilirubin 0.40 (0.2-1.0) mg/dL AST 12 L (13-39) U/L ALT 46 (7-52) U/L Alkaline Phosphatase 82 (34-104) U/L Total Protein 6.5 (6.4-8.9) g/dL Albumin 3.7 (3.2-5.2) g/dL Globulin 2.8 (2-4) g/dL Albumin/Globulin Ratio 1.3 (1-3) Beta HCG, Quant 0.89 mIU/mL Urine Color Urine Appearance Urine pH (5-9) Ur Specific [place] (1.010-1.030) Urine Protein (Negative) Urine Ketones (Negative) Urine Blood (Negative) Urine Nitrate (Negative) Urine Bilirubin (Negative) Urine Urobilinogen (Negative) Ur Leukocyte Esterase (Negative) Urine WBC (Auto) (Absent) Urine RBC (Auto) (Absent) Ur Squamous Epith Cells (Absent) Urine Bacteria (Absent) Urine Glucose (Negative) Result Diagrams: 08/26/16 20:20 08/26/16 20:20 Lab Statement: Any lab studies that have been ordered have been reviewed, and results considered in the medical decision making process. - Ultrasound No standard instances Ultrasound Interpretation: No Acute Changes - IMPRESSION: 1. LIMITED STUDY. 2. SMALL AMOUNT OF FLUID WITHIN THE ENDOMETRIAL CAVITY. THIS IS NOT EXPECTED TO BE PHYSIOLOGIC WITHIN A POSTMENOPAUSAL FEMALE. 3. THE LEFT OVARY IS NOT WELL -VISUALIZED Ultrasound Interpretation Completed By: Radiologist BREANNA Course/Dx - Course Course Of Treatment: Ms. Agosto is stable here in the ED. She is awaiting labs. Her U/S show a small amount of free fluid and her ovary is not well visualized. - Diagnoses Provider Diagnoses: Vaginal bleeding - Physician Notifications Discussed Care Of Patient With: Dr. Clemons at change of shift Discharge - Discharge Plan Condition: Stable Disposition: OTHER Discharge Disposition Comment: The patient is signed out to Dr. Clemons pending lab results. Referrals: Shanda Anglin MD [Primary Care Provider] - The documentation as recorded by the Jennifer blanco Matthew accurately reflects the service I personally performed and the decisions made by Jose wolff Richard L, MD.
== END 2016-08-27 00:02 ==
LOC: ED 15:48
DX: N93.9 Abnormal uterine and vaginal bleeding, unspecified (principal); R10.9 Unspecified abdominal pain; F17.210 Nicotine dependence, cigarettes, uncomplicated
CPT/HCPCS: 36415; 74176; 76830; 80053; 81003; 81015; 83605; 84702; 85025; 85610; 85730; 87077; 87086; 96372; 96374; 96375; 99283; J2270

== ENCOUNTER 2016-08-29 20:23 | Emergency (ER) | payer OTHER ==
[2016-08-29] MEDS ORDERED: Acetaminophen TAB* 325 MG PO ONE (23:47)
--- NOTE | 2016-08-29 23:48 | ED ---
Abdominal Pain/Female - HPI Summary HPI Summary: Patient presents to ED with CC of vaginal bleeding since 2pm. She was seen for the same complaint 3 days ago. Today she states it is worse and she is saturating 4-5 pads per hour. Symptoms are worse upon standing and better with lying flat. She has associated upper abdominal pain of 9/10. Denies radiation. She denies passing blood clots or blood in stool. LMP was 2012. During her visit 3 days ago, CT abd/pelvis and US showed no acute findings other than small amount of free fluid in the pelvis and L ovary was not well visualized. She remains on Lovenox shots for a spontaneous DVT which occurred 8 months ago and states the bruising around that area is worse than usual. Endorses weakness and fatigue today. Denies urinary symptoms. - History of Current Complaint Chief Complaint: EDVaginalBleeding Stated Complaint: DIZZY Time Seen by Provider: 08/29/16 22:55 Hx Obtained From: Patient Hx Last Menstrual Period: 51 Y/O FEMALE ?: No Onset/Duration: Gradual Onset Timing: Intermittent Episode Lasting Severity Initially: Moderate Severity Currently: Moderate Pain Intensity: 9 Pain Scale Used: 0-10 Numeric Location: Diffuse Radiates: No Character: Dull Aggravating Factor(s): Nothing Alleviating Factor(s): Nothing Associated Signs and Symptoms: Positive: Vaginal Bleeding - Risk Factors Ectopic Risk Factor: Maternal Age ^ 30 Ovarian Torsion Risk Factor: Reproductive Age Allergies/Adverse Reactions: Allergies Allergy/AdvReac Type Severity Reaction Status Date / Time Aspirin Allergy Intermediate Hives Verified 08/29/16 23:00 Cyclobenzaprine Allergy Intermediate Difficulty Verified 08/29/16 23:00 [From Flexeril] Swallowing Ketorolac Tromethamine Allergy Intermediate Difficulty Verified 08/29/16 23:00 [From Toradol] Swallowing Clonazepam [From Klonopin] Allergy Mild Rash Verified 08/29/16 23:00 NSAIDs Allergy Mild Itching Verified 08/29/16 23:00 Penicillins [PCN] Allergy Mild Rash Verified 08/29/16 23:00 Topiramate [From Topamax] AdvReac Mild Headache Verified 08/29/16 23:00 Erythromycin AdvReac See Comment Verified 08/29/16 23:00 [place] Allergy Severe Swelling Uncoded 08/29/16 23:00 Of Face,Lips,& Throat lidoderm Allergy Mild Rash Uncoded 08/29/16 23:00 tums AdvReac Mild Dizziness Uncoded 08/29/16 23:00 PMH/Surg Hx/FS Hx/Imm Hx Previously Healthy: No - spontaneous DVT, angina, syncopal episodes, chronic pain Endocrine/Hematology History: Reports: Hx Anticoagulant Therapy - lovenox, 4 months Denies: Hx Blood Disorders, Hx Blood Transfusions, Hx Bone Marrow Disease, Hx Diabetes, Hx Systemic Lupus Erythematosus, Hx Sickle Cell Disease, Hx Thyroid Disease, Hx Anemia, Hx Unexplained Bleeding Cardiovascular History: Reports: Hx Angina, Hx Deep Vein Thrombosis - 1993 left calf, Hx Syncope Denies: Hx Aneurysm, Hx Angioplasty, Hx Auto Implanted Cardiovert Defib, Hx Cardiac Arrest, Hx Cardiomegaly, Hx Congenital Heart Disease, Hx Congestive Heart Failure, Hx Coronary Artery Disease, Hx Embolism, Hx Hypercholesterolemia , Hx Hypotension, Hx Hypertension, Hx Myocardial Infarction, Hx Pacemaker/ICD, Hx Peripheral Vascular Disease, Hx Rheumatic Fever, Hx Valvular Heart Disease, Other Cardiovascular Problems/Disorders Respiratory History: Reports: Hx Pneumonia Denies: Hx Asthma, Hx Chronic Bronchitis, Hx Chronic Obstructive Pulmonary Disease (COPD), Hx Cystic Fibrosis, Hx Lung Cancer, Hx Pleural Effusion, Hx Pulmonary Edema, Hx Pulmonary Embolism, Hx Seasonal Allergies, Hx Sleep Apnea, Other Respiratory Problems/Disorders GI History: Reports: Hx Gall Bladder Disease - taken out 2012, Hx Gastroesophageal Reflux Disease, Hx Gastrointestinal Bleed Denies: Hx Cirrhosis, Hx Crohn's Disease, Hx Diverticulosis, Hx Hiatal Hernia , Hx Irritable Bowel, Hx Jaundice, Hx Obstructive Bowel, Hx Ileostomy, Hx Pyloric Stenosis, Hx Ulcer, Other GI Disorders History: Denies: Hx Acute Renal Failure, Hx Benign Prostatic Hyperplasia, Hx Chronic Renal Failure, Hx Dialysis, Hx Kidney Infection, Hx Kidney Stones, Hx Renal Disease, Other Problems/Disorders Musculoskeletal History: Reports: Hx Back Problems - chronic back pain, T4-T5 fusion, Hx Fibromyalgia - 2005 Denies: Hx Arthritis, Hx Bursitis, Hx Congenital Bone Abnormalities, Hx Gout , Hx Orthopedic Injury, Hx Osteoporosis, Hx Scoliosis, Hx Tendonitis Sensory History: Reports: Hx Contacts or Glasses - Reading Denies: Hx Cataracts, Hx Eye Injury, Hx Eye Prosthesis, Hx Glaucoma, Hx Legally Blind, Hx Macular Degeneration, Hx Vision Problem, Hx Deafness, Hx Hearing Aid, Hx Hearing Problem, Other Sensory Impairments Opthamlomology History: Reports: Hx Contacts or Glasses - Reading Denies: Hx Cataracts, Hx Eye Injury, Hx Eye Prosthesis, Hx Glaucoma, Hx Legally Blind, Hx Macular Degeneration, Hx Vision Problem, Other Sensory Impairments Neurological History: Reports: Hx Dementia, Hx Migraine, Hx Seizures, Other Neuro Impairments/Disorders - prev back surg, bells palsy, chronic back pain - L4-5 spinal fusion 2009 Denies: Hx Developmental Delay, Hx Headaches, Hx Nerve Disease, Hx Spinal Cord Injury, Hx Transient Ischemic Attacks (TIA) Psychiatric History: Reports: Hx Anxiety, Hx Depression Denies: Hx Attention Deficit Hyperactivity Disorder, Hx Eating Disorder, Hx Panic Disorder, Hx Post Traumatic Stress Disorder, Hx Inpatient Treatment, Hx Community Mental Health Tx, Hx Schizophrenia, Hx Bipolar Disorder, Hx Suicide Attempt, Hx of Violent Episodes Against Others, Hx Substance Abuse - Surgical History Surgery Procedure, Year, and Place: D&C-1987 [facility] [place]. - 1997 [facility] [place]. lumbar FUSION - 2009 [place]. TUBAL LIGATION 1997. Gall bladder 2012 Hx Anesthesia Reactions: No - Immunization History Date of Tetanus Vaccine: 04/27/15 Date of Influenza Vaccine: None Hx Pertussis Vaccination: Yes Immunizations Up to Date: Yes Infectious Disease History: No Infectious Disease History: Denies: Hx Clostridium Difficile, Hx Hepatitis, Hx Human Immunodeficiency Virus (HIV), Hx of Known/Suspected MRSA, Hx Shingles, Hx Tuberculosis, Hx Known/ Suspected VRE, Hx Known/Suspected VRSA, History Other Infectious Disease, Traveled Outside the in Last 30 Days - Family History Known Family History: Positive: Cardiac Disease, Hypertension, Diabetes, Seizure Disorder - paternal, maternal, Other Family History: Mother alive in 60s with Hx of gallbladder CA, DVT. Father alive in 60s with Hx of CAD - Social History Occupation: Unemployed Lives: With Family Alcohol Use: None Hx Substance Use: No Substance Use Type: Reports: None Hx Tobacco Use: Yes Smoking Status (MU): Light Every Day Tobacco Smoker Type: Cigarettes Amount Used/How Often: 4 Cigarettes/DAY Have You Smoked in the Last Year: Yes Review of Systems Constitutional: Negative Eyes: Negative Cardiovascular: Negative Positive: Abdominal Pain - upper bilaterally Positive: other - vaginal bleeding Musculoskeletal: Negative Skin: Negative Psychological: Normal All Other Systems Reviewed And Are Negative: Yes Physical Exam Triage Information Reviewed: Yes Vital Signs On Initial Exam: Initial Vitals Temp Pulse Resp BP Pulse Ox 98.6 F 117 18 152/101 100 05/05/17 20:26 08/29/16 20:26 08/29/16 20:26 08/29/16 20:26 08/29/16 20:26 Vital Signs Reviewed: Yes Appearance: Positive: Well-Appearing, No Pain Distress, Well-Nourished Skin: Positive: Warm, Skin Color Reflects Adequate Perfusion Neck: Positive: Supple, No Lymphadenopathy Respiratory/Lung Sounds: Positive: Clear to Auscultation, Breath Sounds Present Cardiovascular: Positive: Normal, RRR, Pulses are Symmetrical in both Upper and Lower Extremities Abdomen Description: Positive: Soft Bowel Sounds: Positive: Present Musculoskeletal: Positive: Strength/ROM Intact Neurological: Positive: Sensory/Motor Intact, Alert, Oriented to Person Place, Time Psychiatric: Positive: Normal AVPU Assessment: Alert - Faye Coma Scale Coma Scale Total: 15 Diagnostics - Vital Signs Vital Signs Temp Pulse Resp BP Pulse Ox 08/29/16 22:56 99.5 F 102 16 137/94 97 08/29/16 22:00 98.2 F 126 18 123/93 100 08/29/16 20:26 98.6 F 117 18 152/101 100 - Laboratory Result Diagrams: 08/29/16 23:25 08/29/16 23:25 Lab Statement: Any lab studies that have been ordered have been reviewed, and results considered in the medical decision making process. Abdominal Pain Fem Course/Dx - Course Course Of Treatment: Patient recently seen for similar complaint. CT abd/ pelvis and US completed [address] shows free fluid, but no other acute findings. Labs OK. UA OK. Today, repeating labs d/t patients comments of soaking through 4-5 pads per hour. She is looking well on exam, but requests pain medicine for 9/10 pain. She has a letter from [facility] [place] with limitations to pain medication. Offered Tylenol and she accepted. Labs look OK other than a slightly low H and H. Patient made aware of results and she agrees to follow up with OBGYN. She is to return if any worsening symptoms develop. - Diagnoses Differential Diagnosis: Positive: Diverticulitis, Ectopic , Ovarian Cyst, Pelvic Inflammatory Disease, Other - dysmenorrhea Provider Diagnoses: Vaginal bleeding Discharge - Discharge Plan Condition: Stable Disposition: HOME Patient Education Materials: Dysfunctional Uterine Bleeding (ED) Referrals: Shanda Anglin MD [Primary Care Provider] - Charleen Yates MD [Medical Doctor] - Bakari Wilson MD [Medical Doctor] - Additional Instructions: Follow up with OBGYN as soon as possible. If symptoms become worse, come back to ED. Drink plenty of fluids.
[2016-08-30 00:35] LABS: Hematocrit 31 % (35-47); Hemoglobin 10.2 g/dl (12.0-16.0); Mean Corpuscular HGB Conc 33 g/dl (31-36); Mean Corpuscular Hemoglobin 27 pg (27-31); Mean Corpuscular Volume 84 fL (80-97); Mean Platelet Volume 9 um3 (7.4-10.4); Red Blood Count 3.72 10^6/ul (4.0-5.4); Red Cell Distribution Width 16 % (10.5-15); White Blood Count 7.7 10^3/ul (3.5-10.8)
[2016-08-30 00:47] LABS: Calcium 8.9 mg/dL (8.6-10.3); EGFR African American 128.1 (>60); EGFR Non-African American 99.6 (>60); Potassium 3.7 mmol/L (3.5-5.0); Total Bilirubin 0.3 mg/dL (0.2-1.0)
[2016-08-30 01:22] VITALS: BP 119/96
== END 2016-08-30 01:20 | disposition home or self-care (01) ==
LOC: ED 20:23
DX: N93.9 Abnormal uterine and vaginal bleeding, unspecified (principal); R10.10 Upper abdominal pain, unspecified; I20.9 Angina pectoris, unspecified; K21.9 Gastro-esophageal reflux disease without esophagitis; F41.8 Other specified anxiety disorders; Z86.718 Personal history of other venous thrombosis and embolism; Z90.49 Acquired absence of other specified parts of digestive tract; Z88.6 Allergy status to analgesic agent; Z88.1 Allergy status to other antibiotic agents; Z88.5 Allergy status to narcotic agent; Z88.0 Allergy status to penicillin; F17.210 Nicotine dependence, cigarettes, uncomplicated
CPT/HCPCS: 36415; 80053; 85025; 85610; 85730; 99283; A9270-GY

== ENCOUNTER 2016-08-30 20:14 | Emergency (ER) | payer OTHER ==
[2016-08-30 22:27] LABS: Hematocrit 31 % (35-47); Hemoglobin 10.2 g/dl (12.0-16.0); Mean Corpuscular HGB Conc 33 g/dl (31-36); Mean Corpuscular Hemoglobin 27 pg (27-31); Mean Corpuscular Volume 83 fL (80-97); Mean Platelet Volume 8 um3 (7.4-10.4); Red Blood Count 3.76 10^6/ul (4.0-5.4); Red Cell Distribution Width 16 % (10.5-15); White Blood Count 7.1 10^3/ul (3.5-10.8)
--- NOTE | 2016-08-30 23:05 | ED ---
Triston Sanchez Anna, scribed for Mookie Clemons on 08/30/16 at 2223 . GI/ HPI - HPI Summary HPI Summary: Patient is a 51 y/o female coming to [facility] presenting with the gradual onset of constant, worsening vaginal bleeding that began four days ago. She additionally reports stabbing pain on her right ovary, of severity 10/10. Denies CP, SOB, other urinary symptoms. She was seen at [facility] for the same complaint on 08/29 and 08/26. CT abd/pel and US completed on 08/26 indicated free fluid but no other acute findings. Patient was told to follow up with OBGYN at that time. - History of Current Complaint Chief Complaint: EDVaginalBleeding Time Seen by Provider: 08/30/16 22:11 Stated Complaint: HEAVY VAGINAL BLEEDING Hx Obtained From: Patient Onset/Duration: Started Days Ago, Still Present Timing: Lasting Days Severity: Moderate Current Severity: Moderate Pain Intensity: 10 - /10 Pain Characteristics: Sharp Associated Signs and Symptoms: Positive: Other: - vaginal bleeding - Additional Pertinent History Primary Care Physician: [id number] - Allergy/Home Medications Allergies/Adverse Reactions: Allergies Allergy/AdvReac Type Severity Reaction Status Date / Time Aspirin Allergy Intermediate Hives Verified 08/29/16 23:00 Cyclobenzaprine Allergy Intermediate Difficulty Verified 08/29/16 23:00 [From Flexeril] Swallowing Ketorolac Tromethamine Allergy Intermediate Difficulty Verified 08/29/16 23:00 [From Toradol] Swallowing Clonazepam [From Klonopin] Allergy Mild Rash Verified 08/29/16 23:00 NSAIDs Allergy Mild Itching Verified 08/29/16 23:00 Penicillins [PCN] Allergy Mild Rash Verified 08/29/16 23:00 Topiramate [From Topamax] AdvReac Mild Headache Verified 08/29/16 23:00 Erythromycin AdvReac See Comment Verified 08/29/16 23:00 anvik Allergy Severe Swelling Uncoded 08/29/16 23:00 Of Face,Lips,& Throat lidoderm Allergy Mild Rash Uncoded 08/29/16 23:00 tums AdvReac Mild Dizziness Uncoded 08/29/16 23:00 PMH/Surg Hx/FS Hx/Imm Hx Endocrine/Hematology History: Reports: Hx Anticoagulant Therapy - lovenox, 4 months Denies: Hx Blood Disorders, Hx Blood Transfusions, Hx Bone Marrow Disease, Hx Diabetes, Hx Systemic Lupus Erythematosus, Hx Sickle Cell Disease, Hx Thyroid Disease, Hx Anemia, Hx Unexplained Bleeding Cardiovascular History: Reports: Hx Angina, Hx Deep Vein Thrombosis - 1993 left calf, Hx Syncope Denies: Hx Aneurysm, Hx Angioplasty, Hx Auto Implanted Cardiovert Defib, Hx Cardiac Arrest, Hx Cardiomegaly, Hx Congenital Heart Disease, Hx Congestive Heart Failure, Hx Coronary Artery Disease, Hx Embolism, Hx Hypercholesterolemia , Hx Hypotension, Hx Hypertension, Hx Myocardial Infarction, Hx Pacemaker/ICD, Hx Peripheral Vascular Disease, Hx Rheumatic Fever, Hx Valvular Heart Disease, Other Cardiovascular Problems/Disorders Respiratory History: Reports: Hx Pneumonia Denies: Hx Asthma, Hx Chronic Bronchitis, Hx Chronic Obstructive Pulmonary Disease (COPD), Hx Cystic Fibrosis, Hx Lung Cancer, Hx Pleural Effusion, Hx Pulmonary Edema, Hx Pulmonary Embolism, Hx Seasonal Allergies, Hx Sleep Apnea, Other Respiratory Problems/Disorders GI History: Reports: Hx Gall Bladder Disease - taken out 2012, Hx Gastroesophageal Reflux Disease, Hx Gastrointestinal Bleed Denies: Hx Cirrhosis, Hx Crohn's Disease, Hx Diverticulosis, Hx Hiatal Hernia , Hx Irritable Bowel, Hx Jaundice, Hx Obstructive Bowel, Hx Ileostomy, Hx Pyloric Stenosis, Hx Ulcer, Other GI Disorders History: Denies: Hx Acute Renal Failure, Hx Benign Prostatic Hyperplasia, Hx Chronic Renal Failure, Hx Dialysis, Hx Kidney Infection, Hx Kidney Stones, Hx Renal Disease, Other Problems/Disorders Musculoskeletal History: Reports: Hx Back Problems - chronic back pain, T4-T5 fusion, Hx Fibromyalgia - 2005 Denies: Hx Arthritis, Hx Bursitis, Hx Congenital Bone Abnormalities, Hx Gout , Hx Orthopedic Injury, Hx Osteoporosis, Hx Scoliosis, Hx Tendonitis Sensory History: Reports: Hx Contacts or Glasses - Reading Denies: Hx Cataracts, Hx Eye Injury, Hx Eye Prosthesis, Hx Glaucoma, Hx Legally Blind, Hx Macular Degeneration, Hx Vision Problem, Hx Deafness, Hx Hearing Aid, Hx Hearing Problem, Other Sensory Impairments Opthamlomology History: Reports: Hx Contacts or Glasses - Reading Denies: Hx Cataracts, Hx Eye Injury, Hx Eye Prosthesis, Hx Glaucoma, Hx Legally Blind, Hx Macular Degeneration, Hx Vision Problem, Other Sensory Impairments Neurological History: Reports: Hx Dementia, Hx Migraine, Hx Seizures, Other Neuro Impairments/Disorders - prev back surg, bells palsy, chronic back pain - L4-5 spinal fusion 2009 Denies: Hx Developmental Delay, Hx Headaches, Hx Nerve Disease, Hx Spinal Cord Injury, Hx Transient Ischemic Attacks (TIA) Psychiatric History: Reports: Hx Anxiety, Hx Depression Denies: Hx Attention Deficit Hyperactivity Disorder, Hx Eating Disorder, Hx Panic Disorder, Hx Post Traumatic Stress Disorder, Hx Inpatient Treatment, Hx Community Mental Health Tx, Hx Schizophrenia, Hx Bipolar Disorder, Hx Suicide Attempt, Hx of Violent Episodes Against Others, Hx Substance Abuse - Surgical History Surgery Procedure, Year, and Place: D&C-1987 [facility] [place]. - 1997 [facility] [place]. lumbar FUSION - 2009 [place]. TUBAL LIGATION 1997. Gall bladder 2012 Hx Anesthesia Reactions: No - Immunization History Date of Tetanus Vaccine: 04/27/15 Date of Influenza Vaccine: None Infectious Disease History: Denies: Hx Clostridium Difficile, Hx Hepatitis, Hx Human Immunodeficiency Virus (HIV), Hx of Known/Suspected MRSA, Hx Shingles, Hx Tuberculosis, Hx Known/ Suspected VRE, Hx Known/Suspected VRSA, History Other Infectious Disease, Traveled Outside the [place] in Last 30 Days - Family History Known Family History: Positive: Cardiac Disease, Hypertension, Diabetes, Seizure Disorder - paternal, maternal, Other Family History: Mother alive in 60s with Hx of gallbladder CA, DVT. Father alive in 60s with Hx of CAD - Social History Alcohol Use: None Hx Substance Use: No Substance Use Type: Reports: None Hx Tobacco Use: Yes Smoking Status (MU): Light Every Day Tobacco Smoker Type: Cigarettes Amount Used/How Often: 4 Cigarettes/DAY Have You Smoked in the Last Year: Yes Review of Systems Negative: Chest Pain Negative: Shortness Of Breath Positive: Abdominal Pain Positive: discharge - bleeding All Other Systems Reviewed And Are Negative: Yes Physical Exam Triage Information Reviewed: Yes Vital Signs On Initial Exam: Initial Vitals Temp Pulse Resp BP Pulse Ox 98.3 F 111 18 133/90 99 08/30/16 20:37 08/30/16 20:37 08/30/16 20:37 08/30/16 20:37 08/30/16 20:37 Vital Signs Reviewed: Yes Appearance: Positive: Well-Appearing, No Pain Distress Skin: Positive: Warm, Skin Color Reflects Adequate Perfusion Head/Face: Positive: Normal Head/Face Inspection Eyes: Positive: EOMI, WILLIAMS ENT: Positive: Normal ENT inspection Neck: Positive: Supple, Nontender Respiratory/Lung Sounds: Positive: Clear to Auscultation, Breath Sounds Present Cardiovascular: Positive: RRR, Pulses are Symmetrical in both Upper and Lower Extremities Abdomen Description: Positive: Nontender, Soft Bowel Sounds: Positive: Present Musculoskeletal: Positive: Normal, Strength/ROM Intact Neurological: Positive: Normal, Sensory/Motor Intact, Alert, Oriented to Person Place, Time Diagnostics - Vital Signs Vital Signs Temp Pulse Resp BP Pulse Ox 08/30/16 21:55 98.9 F 116 16 140/87 99 08/30/16 20:37 98.3 F 111 18 133/90 99 - Laboratory Result Diagrams: 08/30/16 22:19 Lab Statement: Any lab studies that have been ordered have been reviewed, and results considered in the medical decision making process. GIGU Course/Dx - Course Assessment/Plan: Patient is a 51 y/o female coming to [facility] presenting with vaginal bleeding that began four days ago. CBC shows no change, and patient can f/u with PCP within three days. Pt will be discharged home. - Diagnoses Provider Diagnoses: Vaginal bleeding Discharge - Discharge Plan Condition: Stable Disposition: HOME Patient Education Materials: Dysfunctional Uterine Bleeding (ED) Referrals: Shanda Anglin MD [Primary Care Provider] - Additional Instructions: Follow up with your primary care provider within 72 hours. Return to the Emergency Department for new or worsening symptoms. The documentation as recorded by the Triston blanco Anna accurately reflects the service I personally performed and the decisions made by Deonte wolff Emmanuel.
[2016-08-30 23:48] VITALS: BP 134/88
== END 2016-08-30 23:27 | disposition home or self-care (01) ==
LOC: ED 20:14
DX: N93.9 Abnormal uterine and vaginal bleeding, unspecified (principal); R10.9 Unspecified abdominal pain; F17.210 Nicotine dependence, cigarettes, uncomplicated
CPT/HCPCS: 36415; 85025; 99282